=== PATIENT | male | born 1945 | race Caucasian/White ===

== ENCOUNTER → 2018-01-09 | Outpatient (CLI) | payer OTHER ==
[~2018-01-09] MED LIST: METF500T PO; MVI PO; OXYC-292 PO; OXYC-57 PO; ROSU5TAB PO; [UNRECOGNIZED DRUG - OTHER] PO
== END | disposition home or self-care (01) ==
LOC: C.LABPBG 11:01
PROVIDERS: ATTEND Urology
DX: C61 Malignant neoplasm of prostate (principal)

== ENCOUNTER 2020-09-13 12:21 | Inpatient (IN) ==
[2020-09-13] MEDS ORDERED: PIPERACILLIN/TAZOBACTAM 4.5 GM/120 ML BAG IV ONE (12:46)
[2020-09-13] MEDS ORDERED: SODIUM CHLORIDE 0.9% 1000ML 1,000 ML IV ONE (12:46)
[2020-09-13] MEDS ORDERED: PIPERACILL/TAZOBAC CONSULT ACTIVE PRN (12:46)
--- NOTE | 2020-09-13 12:59 | Emergency Department Note ---
Impression & Plan Pneumonia, COVID-19 virus infection, LAMB (dyspnea on exertion), Acute hypotension, IZABELLA (acute kidney injury) ED Provider Note NAME: JOSE OCHOA AGE: 75 SEX: M : 1945 ARRIVES VIA: Walk-In INFORMANT: Patient, ED PROVIDER(S): Wilton Beltran DO CHIEF COMPLAINT: Weakness HPI: The patient is a 75-year-old male who presented to the emergency department for an evaluation of generalized weakness. The patient describes other symptoms as well such as difficulty ambulating shortness of breath with exertion and cough. The patient states that his symptoms began a few days ago. He is noticed a productive cough and fever. He also notices significant exertional dyspnea. The patient denies having any chest pain. He denies having any lower extremity swelling but does complain of generalized weakness. He denies having any abdominal pain nausea or vomiting. He states his symptoms are moderate to severe especially with any exertion. The patient states he has been compliant with his outpatient medication regimen otherwise. The patient was not seen by provider prior to coming to the emergency department. ROS: See above HPI for pertinent positives & negatives. A total of 10 systems reviewed and were otherwise negative. PAST MEDICAL HISTORY: See Below PAST SURGICAL HISTORY: See Below FAMILY HISTORY: See Below SOCIAL HISTORY: See Below HOME MEDICATIONS: See Below ALLERGIES: See Below VITALS: See Below PHYSICAL EXAMINATION: GENERAL: The patient is awake and alert. He is somewhat listless appearing EYES: The conjunctivae are clear. The pupils are round and reactive. EARS, NOSE, MOUTH AND THROAT: The nose is without any evidence of any deformity. NECK: The neck is nontender and supple. RESPIRATORY: Diminished breath sounds are noted throughout. There were rales at the right base. There is significant exertional dyspnea and conversational dyspnea as well. CARDIOVASCULAR: Regular rate and rhythm noted there no murmurs rubs or gallops normal S1 normal S2. GASTROINTESTINAL: The abdomen is soft. Abdomen is nontender. MUSCULOSKELETAL/EXTREMITIES: There is no evidence of gross deformity full range of motion is noted in the hips and shoulders. SKIN: Skin is warm and dry. There is no significant pedal edema. NEUROLOGIC: Patient is awake alert and oriented x3. MEDICAL DECISION MAKING: The patient is a 75-year-old male who presented to the emergency department for an evaluation of difficulty breathing. The patient had fever and cough. History and physical exam appear to be consistent with pneumonia. He was initially hypotensive. He was started on IV fluids and IV antibiotics in the emergency department. He was reevaluated multiple times. The patient did appear to have a positive Covid swab. It is possible that this represents a Covid pneumonia given the findings on chest x-ray. I discussed the patient's laboratory and radiographic studies with him. [facility] also [facility] agreed to evaluate the patient in the emergency department for further management and disposition. Triage Nursing notes reviewed. Prior medical records reviewed Vital Signs: reviewed and remarkable for hypotension and tachypnea. Differential diagnosis: Viral syndrome, otitis, pharyngitis, pneumonia, influenza, meningitis, urinary tract infection, sepsis, bacteremia, as well as other pathologies. ER treatment provided: See below Diagnostics interpreted by me: ECG: EKG was obtained in the emergency department. My interpretation is normal sinus rhythm at 74 bpm. There was a right bundle branch block pattern favored. PACs were noted. This was compared to a tracing from February 052011. There were no acute changes compared to previous. Cardiac Monitoring: An order was placed for continuous cardiac monitoring. The monitor shows a rate of 89 bpm with sinus rhythm. Laboratory studies: As stated above and show below. Imaging studies: See below Consultation(s): I discussed this case with Dr. Ramos who [facility] He will evaluate the patient in the emergency department. Past Med/Surg History Medical History (Updated 09/13/20 @ 19:04 by Wilton Beltran DO) Hypercholesterolemia Hypertension Prostate cancer Social History (Updated 09/13/20 @ 12:57 by Wilton Beltran DO) Smoking Status: Former smoker Hx Alcohol Use: No Hx Substance Use: No Preferred Language: Portuguese Communication Ability: Effective Current Living Situation: Other Current Living Situation Comment: Grandson, 1 level house with cellar steps Other Information That Helps Us Care for You: No Feels Safe at Home: Yes Safety Concerns: Feels Safe At This Time Assistive Devices: Denture - Upper, Denture - Lower, Glasses and Prosthesis Assistive Devices Comment: R eye prosthesis Allergies Allergies Allergy/AdvReac Type Severity Reaction Status Date / Time No Known Allergies Verified 09/13/20 14:35 Home Meds Home Medications Medication Instructions Recorded Confirmed aspirin 81 mg tablet,delayed 81 mg PO DAILY 01/31/19 09/13/20 release clopidogrel 75 mg tablet 75 mg PO DAILY 01/31/19 09/13/20 ezetimibe 10 mg tablet 10 mg PO DAILY 01/31/19 09/13/20 fenofibrate nanocrystallized 145 145 mg PO DAILY 01/31/19 09/13/20 mg tablet glipizide 5 mg tablet 2.5 mg PO BID 01/31/19 09/13/20 lisinopril 10 1 tab PO DAILY 01/31/19 09/13/20 mg-hydrochlorothiazide 12.5 mg tablet trazodone 100 mg tablet 100 mg PO DAILY 01/31/19 09/13/20 vit C,E,zinc,copper-[id number] 250 1 cap PO DAILY 01/31/19 09/13/20 mg-lutein 5 mg-zeaxanthin 1 mg capsule Results & Data (ED) Vital Signs Vital Signs - 24 hr 09/13/20 12:33 09/13/20 12:46 09/13/20 13:00 Temperature 36.8 C Temperature Source Temporal Artery Scan Pulse Rate 76 70 72 Pulse Rate from SpO2 Sensor 70 72 Pulse Rhythm Regular Respiratory Rate 22 22 21 Respiratory Effort / Characteristics Non-Labored Spontaneous Respiratory Depth Normal Respiratory Pattern Regular Blood Pressure 72/48 L 82/41 L Blood Pressure Mean 56 54 Pulse Oximetry 92 93 94 Oxygen Delivery Method Room Air Room Air Sepsis Recent Fever Within 48 Hours Yes Sepsis New/Unexplained Change in Mental Status No Sepsis Action Taken by Nursing Physician Notified 09/13/20 13:15 09/13/20 13:22 09/13/20 13:30 Temperature Temperature Source Pulse Rate 67 67 75 Pulse Rate from SpO2 Sensor 67 71 Pulse Rhythm Respiratory Rate 25 H 21 23 Respiratory Effort / Characteristics Short of Breath Respiratory Depth Respiratory Pattern Blood Pressure 79/44 L 86/50 L Blood Pressure Mean 55 62 Pulse Oximetry 93 95 Oxygen Delivery Method Room Air Sepsis Recent Fever Within 48 Hours Sepsis New/Unexplained Change in Mental Status Sepsis Action Taken by Nursing 09/13/20 13:45 09/13/20 14:00 09/13/20 14:07 Temperature Temperature Source Pulse Rate 74 65 Pulse Rate from SpO2 Sensor 73 70 Pulse Rhythm Respiratory Rate 21 24 Respiratory Effort / Characteristics Short of Breath Respiratory Depth Respiratory Pattern Blood Pressure 99/58 L 110/55 L Blood Pressure Mean 71 73 Pulse Oximetry 96 100 94 Oxygen Delivery Method Sepsis Recent Fever Within 48 Hours Sepsis New/Unexplained Change in Mental Status Sepsis Action Taken by Nursing 09/13/20 14:15 09/13/20 14:34 09/13/20 14:45 Temperature Temperature Source Pulse Rate 67 85 75 Pulse Rate from SpO2 Sensor 67 86 78 Pulse Rhythm Respiratory Rate 24 32 H 21 Respiratory Effort / Characteristics Respiratory Depth Respiratory Pattern Blood Pressure 107/58 L 93/53 L 102/48 L Blood Pressure Mean 74 66 66 Pulse Oximetry 98 94 94 Oxygen Delivery Method Sepsis Recent Fever Within 48 Hours Sepsis New/Unexplained Change in Mental Status Sepsis Action Taken by Nursing 09/13/20 15:00 09/13/20 15:15 09/13/20 15:16 Temperature Temperature Source Pulse Rate 65 66 67 Pulse Rate from SpO2 Sensor 66 66 66 Pulse Rhythm Respiratory Rate 26 H 30 H 25 H Respiratory Effort / Characteristics Short of Breath Respiratory Depth Respiratory Pattern Blood Pressure 112/51 L 110/59 L Blood Pressure Mean 71 76 Pulse Oximetry 93 94 92 Oxygen Delivery Method Room Air Sepsis Recent Fever Within 48 Hours Sepsis New/Unexplained Change in Mental Status Sepsis Action Taken by Nursing 09/13/20 15:30 09/13/20 15:31 09/13/20 15:45 Temperature Temperature Source Pulse Rate 95 H 92 H 82 Pulse Rate from SpO2 Sensor 96 H 96 H 85 Pulse Rhythm Respiratory Rate 21 24 26 H Respiratory Effort / Characteristics Short of Breath Respiratory Depth Respiratory Pattern Blood Pressure 126/69 132/67 Blood Pressure Mean 88 88 Pulse Oximetry 96 96 95 Oxygen Delivery Method Room Air Sepsis Recent Fever Within 48 Hours Sepsis New/Unexplained Change in Mental Status Sepsis Action Taken by Nursing 09/13/20 15:46 09/13/20 16:00 09/13/20 16:15 Temperature Temperature Source Pulse Rate 63 60 76 Pulse Rate from SpO2 Sensor 64 65 81 Pulse Rhythm Respiratory Rate 25 H 24 23 Respiratory Effort / Characteristics Respiratory Depth Respiratory Pattern Blood Pressure 113/68 134/74 Blood Pressure Mean 83 94 Pulse Oximetry 92 93 98 Oxygen Delivery Method Sepsis Recent Fever Within 48 Hours Sepsis New/Unexplained Change in Mental Status Sepsis Action Taken by Nursing 09/13/20 16:16 09/13/20 16:30 09/13/20 16:31 Temperature Temperature Source Pulse Rate 82 80 76 Pulse Rate from SpO2 Sensor 75 85 82 Pulse Rhythm Respiratory Rate 22 23 26 H Respiratory Effort / Characteristics Respiratory Depth Respiratory Pattern Blood Pressure 123/79 Blood Pressure Mean 93 Pulse Oximetry 96 96 96 Oxygen Delivery Method Sepsis Recent Fever Within 48 Hours Sepsis New/Unexplained Change in Mental Status Sepsis Action Taken by Nursing 09/13/20 16:45 Temperature Temperature Source Pulse Rate 72 Pulse Rate from SpO2 Sensor 72 Pulse Rhythm Respiratory Rate 21 Respiratory Effort / Characteristics Respiratory Depth Respiratory Pattern Blood Pressure 123/58 L Blood Pressure Mean 79 Pulse Oximetry 96 Oxygen Delivery Method Sepsis Recent Fever Within 48 Hours Sepsis New/Unexplained Change in Mental Status Sepsis Action Taken by Assisted Medications Current Medication List: was personally reviewed by me Laboratory Data Attestation: I reviewed the patient's lab results. Result diagrams: 09/13/20 13:07 09/13/20 13:07 Lab Results 09/13/20 09/13/20 09/13/20 Range/Units 13:07 13:07 13:07 WBC 7.06 (4.8-10.8) K/uL RBC 3.72 L (4.7-6.1) M/uL Hgb 12.5 L (14.0-18.0) g/dL Hct 35.2 L (42-52) % MCV 94.6 (80-100) fL MCH 33.6 (25-34) pg MCHC 35.5 (32-36) g/dL RDW Std Deviation 48.6 H (36.4-46.3) fL RDW Coeff of Lexy 14.1 (11.5-14.5) % Plt Count 167 (130-400) K/uL MPV 10.1 (7.4-10.4) fL Immature Gran % (Auto) 0.1 % Neut % (Auto) 77.3 % Lymph % (Auto) 16.6 % Phelps % (Auto) 5.9 % Eos % (Auto) 0.1 % Baso % (Auto) 0.0 % Neut # (Auto) 5.45 (1.4-6.5) K/uL Lymph # (Auto) 1.17 L (1.2-3.4) K/uL [place] # (Auto) 0.42 (0.11-0.59) K/uL Eos # (Auto) 0.01 (0-0.5) K/uL Baso # (Auto) 0.00 (0-0.2) K/uL Immature Gran # (Auto) 0.01 (0.00-0.02) K/uL PT 10.9 (9.0-12.0) Seconds INR 1.1 (0.9-1.1) APTT 28.3 (21.0-31.0) Seconds PTT Ratio 1.1 D-Dimer (0-500) ug/L FEU VBG pH (7.36-7.41) VBG pCO2 (38-50) mmHg VBG pO2 mmHg VBG HCO3 mmol/L VBG O2 Saturation % VBG Base Excess mEq/L Barometric Pressure mm/Hg Sodium 127 L (136-145) mmol/L Potassium 5.3 H (3.5-5.1) mmol/L Chloride 94 L (98-107) mmol/L Carbon Dioxide 23 (21-32) mmol/L Anion Gap 10.0 (3-11) BUN 50 H (7-18) mg/dl Creatinine 2.20 H (0.6-1.4) mg/dl Est Cr Clr Drug Dosing 31.2 ml/min Est GFR ( Amer) 32.7 Est GFR (Non-Af Amer) 28.3 BUN/Creatinine Ratio 22.8 H (10-20) Glucose 83 (70-99) mg/dl Lactate (0.4-2.0) mmol/L Calcium 8.8 (8.5-10.1) mg/dl Magnesium 1.9 (1.8-2.4) mg/dl Total Bilirubin 0.4 (0.2-1) mg/dl AST 86 H (15-37) U/L ALT 53 (12-78) U/L Alkaline Phosphatase 31 L (45-117) U/L Lactate Dehydrogenase (87-241) U/L Troponin I 0.299 H* (0-0.045) ng/ml C-Reactive Protein (0-0.29) mg/dl NT-Pro-B Natriuret Pep (0-900) pg/ml Total Protein 7.0 (6.4-8.2) gm/dl Albumin 2.8 L (3.4-5.0) gm/dl Globulin 4.2 H (2.5-4.0) gm/dl Albumin/Globulin Ratio 0.7 L (0.9-2) Procalcitonin (0-0.5) ng/ml Urine Color Urine Appearance (Clear) Urine pH (4.5-7.5) Ur Specific [place] (1.000-1.030) Urine Protein (Negative) Urine Glucose (UA) (Negative) Urine Ketones (Negative) Urine Blood (Negative) Urine Nitrite (Negative) Urine Bilirubin (Negative) Urine Urobilinogen (Negative) Ur Leukocyte Esterase (Negative) COVID-19 Eval Order SARS-CoV-2 (PCR) (Negative) Influenza Type A (PCR) (Neg) Influenza Type B (PCR) (Neg) RSV (RT-PCR) (Neg) 09/13/20 09/13/20 09/13/20 Range/Units 13:07 13:07 13:07 WBC (4.8-10.8) K/uL RBC (4.7-6.1) M/uL Hgb (14.0-18.0) g/dL Hct (42-52) % MCV (80-100) fL MCH (25-34) pg MCHC (32-36) g/dL RDW Std Deviation (36.4-46.3) fL RDW Coeff of Lexy (11.5-14.5) % Plt Count (130-400) K/uL MPV (7.4-10.4) fL Immature Gran % (Auto) % Neut % (Auto) % Lymph % (Auto) % [place]helps % (Auto) % Eos % (Auto) % Baso % (Auto) % Neut # (Auto) (1.4-6.5) K/uL Lymph # (Auto) (1.2-3.4) K/uL [place] # (Auto) (0.11-0.59) K/uL Eos # (Auto) (0-0.5) K/uL Baso # (Auto) (0-0.2) K/uL Immature Gran # (Auto) (0.00-0.02) K/uL PT (9.0-12.0) Seconds INR (0.9-1.1) APTT (21.0-31.0) Seconds PTT Ratio D-Dimer (0-500) ug/L FEU VBG pH 7.42 H (7.36-7.41) VBG pCO2 36 L (38-50) mmHg VBG pO2 31 mmHg VBG HCO3 23 mmol/L VBG O2 Saturation < 60.0 % VBG Base Excess -1.5 mEq/L Barometric Pressure 733.2 mm/Hg Sodium (136-145) mmol/L Potassium (3.5-5.1) mmol/L Chloride (98-107) mmol/L Carbon Dioxide (21-32) mmol/L Anion Gap (3-11) BUN (7-18) mg/dl Creatinine (0.6-1.4) mg/dl Est Cr Clr Drug Dosing ml/min Est GFR ( Amer) Est GFR (Non-Af Amer) BUN/Creatinine Ratio (10-20) Glucose (70-99) mg/dl Lactate (0.4-2.0) mmol/L Calcium (8.5-10.1) mg/dl Magnesium (1.8-2.4) mg/dl Total Bilirubin (0.2-1) mg/dl AST (15-37) U/L ALT (12-78) U/L Alkaline Phosphatase (45-117) U/L Lactate Dehydrogenase (87-241) U/L Troponin I (0-0.045) ng/ml C-Reactive Protein (0-0.29) mg/dl NT-Pro-B Natriuret Pep 595 (0-900) pg/ml Total Protein (6.4-8.2) gm/dl Albumin (3.4-5.0) gm/dl Globulin (2.5-4.0) gm/dl Albumin/Globulin Ratio (0.9-2) Procalcitonin 0.09 (0-0.5) ng/ml Urine Color Urine Appearance (Clear) Urine pH (4.5-7.5) Ur Specific [place] (1.000-1.030) Urine Protein (Negative) Urine Glucose (UA) (Negative) Urine Ketones (Negative) Urine Blood (Negative) Urine Nitrite (Negative) Urine Bilirubin (Negative) Urine Urobilinogen (Negative) Ur Leukocyte Esterase (Negative) COVID-19 Eval Order SARS-CoV-2 (PCR) (Negative) Influenza Type A (PCR) (Neg) Influenza Type B (PCR) (Neg) RSV (RT-PCR) (Neg) 09/13/20 09/13/20 09/13/20 Range/Units 13:07 13:07 13:07 WBC (4.8-10.8) K/uL RBC (4.7-6.1) M/uL Hgb (14.0-18.0) g/dL Hct (42-52) % MCV (80-100) fL MCH (25-34) pg MCHC (32-36) g/dL RDW Std Deviation (36.4-46.3) fL RDW Coeff of Lexy (11.5-14.5) % Plt Count (130-400) K/uL MPV (7.4-10.4) fL Immature Gran % (Auto) % Neut % (Auto) % Lymph % (Auto) % [place]hel[place] % (Auto) % Eos % (Auto) % Baso % (Auto) % Neut # (Auto) (1.4-6.5) K/uL Lymph # (Auto) (1.2-3.4) K/uL [place] # (Auto) (0.11-0.59) K/uL Eos # (Auto) (0-0.5) K/uL Baso # (Auto) (0-0.2) K/uL Immature Gran # (Auto) (0.00-0.02) K/uL PT (9.0-12.0) Seconds INR (0.9-1.1) APTT (21.0-31.0) Seconds PTT Ratio D-Dimer 410 (0-500) ug/L FEU VBG pH (7.36-7.41) VBG pCO2 (38-50) mmHg VBG pO2 mmHg VBG HCO3 mmol/L VBG O2 Saturation % VBG Base Excess mEq/L Barometric Pressure mm/Hg Sodium (136-145) mmol/L Potassium (3.5-5.1) mmol/L Chloride (98-107) mmol/L Carbon Dioxide (21-32) mmol/L Anion Gap (3-11) BUN (7-18) mg/dl Creatinine (0.6-1.4) mg/dl Est Cr Clr Drug Dosing ml/min Est GFR ( Amer) Est GFR (Non-Af Amer) BUN/Creatinine Ratio (10-20) Glucose (70-99) mg/dl Lactate (0.4-2.0) mmol/L Calcium (8.5-10.1) mg/dl Magnesium (1.8-2.4) mg/dl Total Bilirubin (0.2-1) mg/dl AST (15-37) U/L ALT (12-78) U/L Alkaline Phosphatase (45-117) U/L Lactate Dehydrogenase 378 H (87-241) U/L Troponin I (0-0.045) ng/ml C-Reactive Protein 8.11 H (0-0.29) mg/dl NT-Pro-B Natriuret Pep (0-900) pg/ml Total Protein (6.4-8.2) gm/dl Albumin (3.4-5.0) gm/dl Globulin (2.5-4.0) gm/dl Albumin/Globulin Ratio (0.9-2) Procalcitonin (0-0.5) ng/ml Urine Color Urine Appearance (Clear) Urine pH (4.5-7.5) Ur Specific [place] (1.000-1.030) Urine Protein (Negative) Urine Glucose (UA) (Negative) Urine Ketones (Negative) Urine Blood (Negative) Urine Nitrite (Negative) Urine Bilirubin (Negative) Urine Urobilinogen (Negative) Ur Leukocyte Esterase (Negative) COVID-19 Eval Order SARS-CoV-2 (PCR) (Negative) Influenza Type A (PCR) (Neg) Influenza Type B (PCR) (Neg) RSV (RT-PCR) (Neg) 09/13/20 09/13/20 09/13/20 Range/Units 13:09 13:29 13:29 WBC (4.8-10.8) K/uL RBC (4.7-6.1) M/uL Hgb (14.0-18.0) g/dL Hct (42-52) % MCV (80-100) fL MCH (25-34) pg MCHC (32-36) g/dL RDW Std Deviation (36.4-46.3) fL RDW Coeff of Lexy (11.5-14.5) % Plt Count (130-400) K/uL MPV (7.4-10.4) fL Immature Gran % (Auto) % Neut % (Auto) % Lymph % (Auto) % [place] % (Auto) % Eos % (Auto) % Baso % (Auto) % Neut # (Auto) (1.4-6.5) K/uL Lymph # (Auto) (1.2-3.4) K/uL [place] # (Auto) (0.11-0.59) K/uL Eos # (Auto) (0-0.5) K/uL Baso # (Auto) (0-0.2) K/uL Immature Gran # (Auto) (0.00-0.02) K/uL PT (9.0-12.0) Seconds INR (0.9-1.1) APTT (21.0-31.0) Seconds PTT Ratio D-Dimer (0-500) ug/L FEU VBG pH (7.36-7.41) VBG pCO2 (38-50) mmHg VBG pO2 mmHg VBG HCO3 mmol/L VBG O2 Saturation % VBG Base Excess mEq/L Barometric Pressure mm/Hg Sodium (136-145) mmol/L Potassium (3.5-5.1) mmol/L Chloride (98-107) mmol/L Carbon Dioxide (21-32) mmol/L Anion Gap (3-11) BUN (7-18) mg/dl Creatinine (0.6-1.4) mg/dl Est Cr Clr Drug Dosing ml/min Est GFR ( Amer) Est GFR (Non-Af Amer) BUN/Creatinine Ratio (10-20) Glucose (70-99) mg/dl Lactate 1.5 (0.4-2.0) mmol/L Calcium (8.5-10.1) mg/dl Magnesium (1.8-2.4) mg/dl Total Bilirubin (0.2-1) mg/dl AST (15-37) U/L ALT (12-78) U/L Alkaline Phosphatase (45-117) U/L Lactate Dehydrogenase (87-241) U/L Troponin I (0-0.045) ng/ml C-Reactive Protein (0-0.29) mg/dl NT-Pro-B Natriuret Pep (0-900) pg/ml Total Protein (6.4-8.2) gm/dl Albumin (3.4-5.0) gm/dl Globulin (2.5-4.0) gm/dl Albumin/Globulin Ratio (0.9-2) Procalcitonin (0-0.5) ng/ml Urine Color Urine Appearance (Clear) Urine pH (4.5-7.5) Ur Specific [place] (1.000-1.030) Urine Protein (Negative) Urine Glucose (UA) (Negative) Urine Ketones (Negative) Urine Blood (Negative) Urine Nitrite (Negative) Urine Bilirubin (Negative) Urine Urobilinogen (Negative) Ur Leukocyte Esterase (Negative) COVID-19 Eval Order [facility] at [facility] SARS-CoV-2 (PCR) POSITIVE A* (Negative) Influenza Type A (PCR) Negative (Neg) Influenza Type B (PCR) Negative (Neg) RSV (RT-PCR) Negative (Neg) 09/13/20 Range/Units 14:24 WBC (4.8-10.8) K/uL RBC (4.7-6.1) M/uL Hgb (14.0-18.0) g/dL Hct (42-52) % MCV (80-100) fL MCH (25-34) pg MCHC (32-36) g/dL RDW Std Deviation (36.4-46.3) fL RDW Coeff of Lexy (11.5-14.5) % Plt Count (130-400) K/uL MPV (7.4-10.4) fL Immature Gran % (Auto) % Neut % (Auto) % Lymph % (Auto) % [place] % (Auto) % Eos % (Auto) % Baso % (Auto) % Neut # (Auto) (1.4-6.5) K/uL Lymph # (Auto) (1.2-3.4) K/uL [place] # (Auto) (0.11-0.59) K/uL Eos # (Auto) (0-0.5) K/uL Baso # (Auto) (0-0.2) K/uL Immature Gran # (Auto) (0.00-0.02) K/uL PT (9.0-12.0) Seconds INR (0.9-1.1) APTT (21.0-31.0) Seconds PTT Ratio D-Dimer (0-500) ug/L FEU VBG pH (7.36-7.41) VBG pCO2 (38-50) mmHg VBG pO2 mmHg VBG HCO3 mmol/L VBG O2 Saturation % VBG Base Excess mEq/L Barometric Pressure mm/Hg Sodium (136-145) mmol/L Potassium (3.5-5.1) mmol/L Chloride (98-107) mmol/L Carbon Dioxide (21-32) mmol/L Anion Gap (3-11) BUN (7-18) mg/dl Creatinine (0.6-1.4) mg/dl Est Cr Clr Drug Dosing ml/min Est GFR ( Amer) Est GFR (Non-Af Amer) BUN/Creatinine Ratio (10-20) Glucose (70-99) mg/dl Lactate (0.4-2.0) mmol/L Calcium (8.5-10.1) mg/dl Magnesium (1.8-2.4) mg/dl Total Bilirubin (0.2-1) mg/dl AST (15-37) U/L ALT (12-78) U/L Alkaline Phosphatase (45-117) U/L Lactate Dehydrogenase (87-241) U/L Troponin I (0-0.045) ng/ml C-Reactive Protein (0-0.29) mg/dl NT-Pro-B Natriuret Pep (0-900) pg/ml Total Protein (6.4-8.2) gm/dl Albumin (3.4-5.0) gm/dl Globulin (2.5-4.0) gm/dl Albumin/Globulin Ratio (0.9-2) Procalcitonin (0-0.5) ng/ml Urine Color Yellow Urine Appearance Clear (Clear) Urine pH 5.0 (4.5-7.5) Ur Specific [place] 1.018 (1.000-1.030) Urine Protein Negative (Negative) Urine Glucose (UA) Negative (Negative) Urine Ketones Negative (Negative) Urine Blood Negative (Negative) Urine Nitrite Negative (Negative) Urine Bilirubin Negative (Negative) Urine Urobilinogen Negative (Negative) Ur Leukocyte Esterase Negative (Negative) COVID-19 Eval Order SARS-CoV-2 (PCR) (Negative) Influenza Type A (PCR) (Neg) Influenza Type B (PCR) (Neg) RSV (RT-PCR) (Neg) Administered Medications Discontinued Medications Sodium Chloride (Nss 1000ml) 1,000 mls @ 999 mls/hr IV .[id number] ONE Stop: 09/13/20 13:46 Last Infusion: 09/13/20 14:16 Dose: 0 mls/hr Documented by: [id number] Admin: 09/13/20 13:15 Dose: 999 mls/hr Documented by: [id number] Piperacillin Sod/Tazobactam Sod (Zosyn) 4.5 gm in 120 mls @ 240 mls/hr IV NOW ONE Stop: 09/13/20 13:15 Last Infusion: 09/13/20 13:48 Dose: 0 mls/hr Documented by: [id number] Admin: 09/13/20 13:18 Dose: 240 mls/hr Documented by: [id number] Sodium Chloride (Nss 1000ml) 500 mls @ 999 mls/hr IV .Q31M ONE Stop: 09/13/20 17:00 Last Infusion: 09/13/20 17:28 Dose: 0 mls/hr Documented by: [id number] Admin: 09/13/20 16:57 Dose: 999 mls/hr Documented by: [id number] Imaging Data Radiologist's Impression: Chest X-Ray 09/13/20 12:46 SINGLE VIEW CHEST CLINICAL HISTORY: Sepsis. FINDINGS: An AP, portable, upright chest radiograph is compared to study dated 02/06/2012. The examination is degraded by portable technique and apical lordotic positioning. The heart is enlarged noting atherosclerotic calcification of the thoracic aorta. There is multifocal airspace consolidation, most confluent at th e lung bases. No large pleural effusion or pneumothorax is seen. The skeletal structures are osteopenic. The bony thorax is grossly intact. IMPRESSION: 1. Cardiomegaly without radiographic evidence of congestive failure. 2. Multifocal airspace consolidation is typical in appearance for pneumonia. Clinical correlation will be required and radiographic follow-up to resolution is recommended.. ACT 112: Negative or not required by law. Electronically signed by: Ravi Rodrigez M.D. 09/13/2020 2:01 PM Discharge Plan Visit Data Chief Complaint: Fever Stated Complaint: FEVER COUGH ED Provider: Wilton Beltran Discharge Problem: Pneumonia, COVID-19 virus infection, LAMB (dyspnea on exertion), Acute hypotension, IZABELLA (acute kidney injury) Patient Disposition: Admitted As Inpatient Discharge Instructions Interventions: ED Discharge Assessment Last Done: 09/13/20 17:57
[2020-09-13 13:27] LABS: Hematocrit (blood only) 35.2 % (42-52); Hemoglobin 12.5 g/dL (14.0-18.0); Mean Corpuscular Hemoglobin 33.6 pg (25-34); Mean Corpuscular Hgb Conc 35.5 g/dL (32-36); Mean Corpuscular Volume 94.6 fL (80-100); Mean Platelet Volume 10.1 fL (7.4-10.4); Platelet Count 167 K/uL (130-400); RDW Coefficient of Variation 14.1 % (11.5-14.5); RDW Standard Deviation 48.6 fL (36.4-46.3); Red Blood Count 3.72 M/uL (4.7-6.1); White Blood Count 7.06 K/uL (4.8-10.8)
[2020-09-13 13:36] LABS: Base Excess VBG -1.5 mEq/L; HCO3 VBG 23 mmol/L; Oxygen Saturation VBG < 60.0 %; PCO2 VBG 36 mmHg (38-50); PO2 VBG 31 mmHg; pH VBG 7.42 (7.36-7.41)
[2020-09-13 13:41] LABS: INR 1.1 (0.9-1.1); Partial Thromboplastin Ratio 1.1; Partial Thromboplastin Time 28.3 Seconds (21.0-31.0); Prothrombin Time 10.9 Seconds (9.0-12.0)
[2020-09-13 13:46] LABS: Eosinophils # (auto) 0.01 K/uL (0-0.5); Eosinophils % (auto) 0.1 %; Immature Granulocytes # (auto) 0.01 K/uL (0.00-0.02); Immature Granulocytes % (auto) 0.1 %; Lymphocytes # (auto) 1.17 K/uL (1.2-3.4); Lymphocytes % (auto) 16.6 %; Monocytes # (auto) 0.42 K/uL (0.11-0.59); Monocytes % (auto) 5.9 %; Neutrophils # (auto) 5.45 K/uL (1.4-6.5); Neutrophils % (auto) 77.3 %
--- NOTE | 2020-09-13 13:54 | Electrocardiogram Report ---
Test Reason : Blood Pressure : / mmHG Vent. Rate : 074 BPM Atrial Rate : 074 BPM P-R Int : 146 ms QRS Dur : 110 ms QT Int : 412 ms P-R-T Axes : 030 047 021 degrees QTc Int : 457 ms Sinus rhythm with Premature atrial complexes Incomplete right bundle branch block Borderline ECG When compared with ECG of 06-FEB-2012 16:17, Premature atrial complexes are now Present Incomplete right bundle branch block has replaced Right bundle branch block Confirmed by Parvez Anderson ([id number]) on 09/13/2020 1:54:31 PM Referred By: [id number] ED Confirmed By:Parvez Anderson
--- NOTE | 2020-09-13 14:03 | XRay Report ---
SINGLE VIEW CHEST CLINICAL HISTORY: Sepsis. FINDINGS: An AP, portable, upright chest radiograph is compared to study dated 02/06/2012. The examina tion is degraded by portable technique and apical lordotic positioning. The heart is enlarged noting atherosclerotic calcification of the thoracic aorta. There is multifocal airspace consolidation, most confluent at the lung bases. No large pleural effusion or pneumothorax is seen. The skeletal structu res are osteopenic. The bony thorax is grossly intact. IMPRESSION: 1. Cardiomegaly without radiographic evidence of congestive failure. 2. Multifocal airspace consolidation is typical in appearance for pneumonia. Clinical correlation jesenia l be required and radiographic follow-up to resolution is recommended.. ACT 112: Negative or not required by law. Electronically signed by: Ravi Rodrigez M.D. 09/13/2020 2:01 PM
[2020-09-13 14:12] LABS: Albumin Level 2.8 gm/dl (3.4-5.0); BUN Creatinine Ratio 22.8 (10-20); Calcium 8.8 mg/dl (8.5-10.1); Creatinine Clr Calc Pharmacy 31.2 ml/min; Est GFR (African American) 32.7; Est GFR (Non-African American) 28.3; Magnesium 1.9 mg/dl (1.8-2.4); Potassium 5.3 mmol/L (3.5-5.1)
[2020-09-13 14:26] LABS: Albumin Globulin Ratio 0.7 (0.9-2); Bilirubin,Total 0.4 mg/dl (0.2-1); Globulin 4.2 gm/dl (2.5-4.0); Troponin I 0.299 ng/ml (0-0.045)
[2020-09-13 14:49] LABS: Appearance Urine Clear (Clear); Bilirubin Urine Negative (Negative); Blood Urine Negative (Negative); Color Urine Yellow; Glucose Urine UA Negative (Negative); Ketones Urine Negative (Negative); Leukocyte Esterase Urine Negative (Negative); Nitrite Urine Negative (Negative); Protein Urine Negative (Negative); Specific Gravity Urine 1.018 (1.000-1.030); Urobilinogen Urine Negative (Negative)
[2020-09-13 14:50] LABS: Influenza A virus by PCR Negative (Neg); Influenza B virus by PCR Negative (Neg); RSV by PCR Negative (Neg)
[2020-09-13 14:54] LABS: SARS CoV2 RNA(COVID-19) InHosp POSITIVE (Negative)
[2020-09-13] MEDS ORDERED: SODIUM CHLORIDE 0.9% 1000ML 500 ML IV ONE (16:30)
--- NOTE | 2020-09-13 16:31 | History & Physical Report ---
Date of Service September 13, 2020 Assessment & Plan (1) COVID-19: COVID isolation precautions Encourage self proning No current medication recommended due to no respiratory distress or significant hypoxia (2) Acute kidney failure: Unknown baseline. Will request notes from his primary care provider regarding prior labs, medical conditions, medications and past medical history. Suspect prerenal due to hypotension on admission in setting of antihypertensive use. Hold lisinopril and hydrochlorothiazide NSS 1.5L bolus given in ER. (3) Diarrhea: Suspect secondary to COVID-19 as above. Recommend C. difficile toxin testing if watery diarrhea over the next 24 hours. If no watery diarrhea over the next 24 hours recommend starting Imodium. Aim for net neutral fluid balance, every shift input and output. (4) Acute hypotension: Secondary to antihypertensives in the setting of diarrhea and dehydration Management as above for IZABELLA (5) Hypertension: Hold lisinopril and hydrochlorothiazide in setting of acute hypotension as above (6) Hypercholesterolemia: Continue ezetimibe and fenofibrate. Unclear why the patient is not on a statin. (7) Peripheral artery disease: Exact details of this unclear. Patient mentions possible stent. Peripheral pulses appear intact. Continue aspirin 81 mg p.o. daily, clopidogrel 75 mg p.o. daily, ezetimibe 10 mg p.o. daily, fenofibrate 145 mg p.o. daily (8) DVT prophylaxis: Heparin 7500 units subcu q8h Admission and Anticipated Discharge Date Admission Date: September 13, 2020 History of Present Illness Chief Complaint: Diarrhea, generalized weakness, shortness of breath. Primary Care Provider: Gopi Verma is a 75-year-old male who presents to the ER with generalized weakness, fever, weakness, cough, diarrhea and shortness of breath. Symptoms started 1 week ago. Symptoms included fever, chills, shortness of breath, cough, poor appetite, generalized weakness, myalgias, headache, fatigue and diarrhea. He denies any loss of taste or smell, chest or abdominal pain. He was prompted to come to the ER today by his daughter who is not present at bedside. In the ER, CXR was concerning for multifocal airspace consolidation. SARS-COV-2 PCR positive. Procalcitonin negative. He was initially hypotensive with BP 72/48 which has improved since 1L NSS bolus given. Cr 2.2 (unknown baseline). He was treated empirically with Zosyn 4.5g prior to all lab work coming back. He was referred to medicine for admission and ongoing management of COVID-19 pneumonia and sepsis. I tried to update his family on admission however only number provided was the home number for his with no answer. No other phone numbers on the chart and the patient is unable to tell me any other phone numbers of family members. Allergies Allergy/AdvReac Type Severity Reaction Status Date / Time No Known Allergies Verified 09/13/20 14:35 Home Medications Medication Instructions Recorded Confirmed Type aspirin 81 mg tablet,delayed 81 mg PO DAILY 01/31/19 09/13/20 History release clopidogrel 75 mg tablet 75 mg PO DAILY 01/31/19 09/13/20 History ezetimibe 10 mg tablet 10 mg PO DAILY 01/31/19 09/13/20 History fenofibrate nanocrystallized 145 145 mg PO DAILY 01/31/19 09/13/20 History mg tablet glipizide 5 mg tablet 2.5 mg PO BID 01/31/19 09/13/20 History lisinopril 10 1 tab PO DAILY 01/31/19 09/13/20 History mg-hydrochlorothiazide 12.5 mg tablet trazodone 100 mg tablet 100 mg PO DAILY 01/31/19 09/13/20 History vit C,E,zinc,copper-abtcd2a 250 1 cap PO DAILY 01/31/19 09/13/20 History mg-lutein 5 mg-zeaxanthin 1 mg capsule Past Med/Surg History Medical History Hypercholesterolemia Hypertension Prostate cancer Social History Smoking Status: Former smoker Hx Alcohol Use: No Hx Substance Use: No Preferred Language: Danish Communication Ability: Effective Current Living Situation: Other Current Living Situation Comment: Grandson, 1 level house with cellar steps Other Information That Helps Us Care for You: No Feels Safe at Home: Yes Safety Concerns: Feels Safe At This Time Assistive Devices: Denture - Upper, Denture - Lower, Glasses and Prosthesis Assistive Devices Comment: R eye prosthesis Review of Systems Review of Systems: All systems reviewed & are unremarkable except as noted in HPI & below Physical Exam Constitutional: WD/WN, vitals as above Eyes: PERRL, conjunctivae normal, anicteric sclerae ENMT: Ears: no external ear abnormality Nose: no external nose abnormality Mouth: + dry oral mucous membranes Neck: trachea midline, no thyromegaly Respiratory: normal respiratory effort and able to speak in complete sentences; no respiratory distress, no labored breathing, no retractions, does not use accessory muscles, no cough, normal respiratory pattern, expiratory phase not prolonged and no stridor Auscultation: + crackles (coarse bibasal) and + wheezes (Mild end expiratory anteriorly); no diminished lung sounds Cardiovascular: Rate/Rhythm: regular rate and regular rhythm Heart Sounds: no murmur Extremities: normal capillary refill and + pedal edema (Trace pretibial bilateral equal); no calf tenderness Gastrointestinal (Abdomen): normal bowel sounds, soft, nontender, no hepatosplenomegaly Musculoskeletal: no cyanosis or clubbing, extremities motor strength 5/5 Skin: no rashes, warm and dry Neurologic: moves all extremities and awake; no focal motor deficits and not confused Psychiatric: A+Ox3, euthymic affect Genitourinary: no CVA tenderness Results & Data Results & Data ([facility]) Vital Signs (Past 12 Hours) Vital Signs Temp Pulse Resp BP Pulse Ox 09/13/20 15:00 65 26 H 112/51 L 93 09/13/20 14:45 75 21 102/48 L 94 09/13/20 14:34 85 32 H 93/53 L 94 09/13/20 14:15 67 24 107/58 L 98 09/13/20 14:07 94 09/13/20 14:00 65 24 110/55 L 100 09/13/20 13:45 74 21 99/58 L 96 09/13/20 13:30 75 23 86/50 L 95 09/13/20 13:22 67 21 79/44 L 93 09/13/20 13:15 67 25 H 09/13/20 13:00 72 21 94 09/13/20 12:46 70 22 82/41 L 93 09/13/20 12:33 36.8 C 76 22 72/48 L 92 Diagnostic Findings SINGLE VIEW CHEST IMPRESSION: 1. Cardiomegaly without radiographic evidence of congestive failure. 2. Multifocal airspace consolidation is typical in appearance for pneumonia. Clinical correlation will be required and radiographic follow-up to resolution is recommended.. Medications Administered ER medications given: NSS 1 hour bolus Zosyn 4.5 g IV ECG Indication: SOB/dyspnea Rate (beats per minute): 74 Rhythm: normal sinus Findings: + RBBB (Incomplete); no acute ischemic change Comparison ECG Date: from (February 06, 2012) Change: the following changes noted (Right bundle branch block now incomplete) Code Status & VTE Plan Code Status Full VTE Prophylaxis Plan VTE Prophylaxis will be ordered: Yes PG Care Time/CCT Total # of Minutes Spent Total Time Spent with Patient: Total time spent is greater than 50% in coordination of care (as documented) at patient's floor/unit and/or counseling patient: Coding Level of Care Code 54330 Initial Inpt Care Lvl 3 Diagnoses COVID-19 U07.1 Acute kidney failure N17.9 Acute renal failure type: unspecified Diarrhea A09 Diarrhea type: infectious Acute hypotension I95.9 Hypertension I10 Hypercholesterolemia E78.00 Peripheral artery disease I73.9 DVT prophylaxis Z29.9 (1) Acute kidney failure Acute renal failure type: unspecified Qualified Code(s): N17.9 - Acute kidney failure, unspecified (2) Diarrhea Diarrhea type: infectious Qualified Code(s): A09 - Infectious gastroenteritis and colitis, unspecified
[2020-09-13 17:02] LABS: D Dimer 410 ug/L FEU (0-500)
[2020-09-13] MEDS ORDERED: SODIUM CHLORIDE 0.9% 1000ML 1,000 ML IV SCH (18:13)
[2020-09-13] MEDS ORDERED: ONDANSETRON INJ 2 MG/ML 2 ML VIAL IV PRN (18:13)
[2020-09-13] MEDS ORDERED: ALUMINUM/MAGNESIUM SUSP 30 ML UDC PO PRN (18:13)
[2020-09-13] MEDS ORDERED: GLUCOSE 10 TABS/TUBE PO PRN (20:37)
[2020-09-13] MEDS ORDERED: CARBOHYDRATES FOR HYPOGLYCEMIA PO PRN (20:37)
[2020-09-13] MEDS ORDERED: GLUCOSE 40% GEL 15 GM TUBE PO PRN (20:37)
[2020-09-13] MEDS ORDERED: GLUCAGON FOR INJ 1 MG VIAL SQ PRN (20:37)
[2020-09-13] MEDS ORDERED: DEXTROSE 50% 50 ML SYRINGE IV PRN (20:37)
[2020-09-13] MEDS: INSULIN ASPART 100 UNITS/ML 3 ML PEN SC SCH (21:05)
[2020-09-13] MEDS: traZODone HCL 100 MG TAB PO SCH (22:04)
[2020-09-13] MEDS: HEPARIN SOD 5,000 UNIT/0.5 ML VIAL SQ SCH (22:05)
[2020-09-14 03:09] LABS: BUN Creatinine Ratio 22.8 (10-20); Est GFR (African American) 37.2; Est GFR (Non-African American) 32.1; Potassium 5.5 mmol/L (3.5-5.1)
[2020-09-14] MEDS: HEPARIN SOD 5,000 UNIT/0.5 ML VIAL SQ SCH ×2 (06:15→21:45)
[2020-09-14] MEDS ORDERED: ALBUT/IPRATROP 3MG/0.5MG NEB 3 ML VIAL NEB SCH (07:00)
[2020-09-14 07:14] LABS: Hematocrit (blood only) 36.3 % (42-52); Hemoglobin 12.5 g/dL (14.0-18.0); Mean Corpuscular Hemoglobin 33.1 pg (25-34); Mean Corpuscular Hgb Conc 34.4 g/dL (32-36); Mean Platelet Volume 9.9 fL (7.4-10.4); Platelet Count 158 K/uL (130-400); RDW Coefficient of Variation 14.2 % (11.5-14.5); RDW Standard Deviation 50.2 fL (36.4-46.3); Red Blood Count 3.78 M/uL (4.7-6.1); White Blood Count 6.75 K/uL (4.8-10.8)
[2020-09-14 07:37] LABS: Immature Granulocytes # (auto) 0.01 K/uL (0.00-0.02); Immature Granulocytes % (auto) 0.1 %; Lymphocytes # (auto) 1.34 K/uL (1.2-3.4); Lymphocytes % (auto) 19.9 %; Monocytes # (auto) 0.32 K/uL (0.11-0.59); Monocytes % (auto) 4.7 %; Neutrophils # (auto) 5.08 K/uL (1.4-6.5); Neutrophils % (auto) 75.3 %
[2020-09-14 07:44] LABS: Albumin Level 2.6 gm/dl (3.4-5.0); BUN Creatinine Ratio 23.3 (10-20); Calcium 8.2 mg/dl (8.5-10.1); Creatinine Clr Calc Pharmacy 35.7 ml/min; Est GFR (African American) 38.6; Est GFR (Non-African American) 33.3; Potassium 5.4 mmol/L (3.5-5.1)
[2020-09-14 07:47] LABS: Albumin Globulin Ratio 0.6 (0.9-2); Bilirubin,Total 0.5 mg/dl (0.2-1); Globulin 4.3 gm/dl (2.5-4.0); Total Protein 6.9 gm/dl (6.4-8.2)
--- NOTE | 2020-09-14 08:36 | Hospitalist Progress Note ---
Date of Service September 14, 2020 Assessment & Plan (1) COVID-19: COVID isolation precautions. - Started dexamethasone 6 mg PO daily on 09/14 for 10 days (End date: 09/23) - Encourage self proning - Supplemental O2 as needed (presently on 2 L NC) - Has some discomfort today. Will encourage self-proning as able. (2) Acute kidney failure: Unknown baseline. Requested notes from his primary care provider regarding prior labs, medical conditions, medications, and past medical history. Suspect prerenal due to hypotension on admission in setting of antihypertensive use. - Hold lisinopril and hydrochlorothiazide - Stable K+ today at 5.4. Cr stable as well. (3) Diarrhea: Suspect secondary to COVID-19 as above. C. diff negative on 09/14. - Imodium PRN (4) Acute hypotension: Secondary to anti-hypertensives in the setting of diarrhea and dehydration. - Management as above for IZABELLA (5) Hypertension: - As above (6) Hypercholesterolemia: Continue ezetimibe and fenofibrate. Unclear why the patient is not on a statin. (7) Peripheral artery disease: Exact details of this unclear. Patient mentions possible stent. - Continue aspirin 81 mg p.o. daily, clopidogrel 75 mg p.o. daily, ezetimibe 10 mg p.o. daily, & fenofibrate 145 mg p.o. daily (8) DVT prophylaxis: Heparin 7500 units SQ Q12h Admission and Anticipated Discharge Date Admission Date: September 13, 2020 Subjective Some increased shortness of breath. It is especially pronounced when he moves to the bathroom and back. Have some loose stools. Reports no fevers/chills, chest pain, abdominal pain, nausea, or vomiting. Physical Exam Constitutional: WD/WN, vitals as above + acute distress Eyes: EOM intact bilaterally; no conjunctival abnormality ENMT: external ear and nose normal, oropharynx normal Neck: trachea midline, no thyromegaly normal visual inspection Respiratory: + respiratory distress and + labored breathing Auscultation: no crackles and no wheezes Cardiovascular: RRR, no murmur, no edema Gastrointestinal (Abdomen): Inspection/Auscultation: abdomen normal to inspection; abdomen not distended Musculoskeletal: no cyanosis or clubbing, extremities motor strength 5/5 Skin: no rashes, warm and dry Neurologic: moves all extremities and awake Psychiatric: Orientation: alert, oriented to person and cooperative Results & Data Results & Data ([facility]) Vital Signs (Past 12 Hours) Vital Signs Temp Pulse Pulse Resp BP Pulse Ox 09/14/20 08:00 72 09/14/20 07:44 37.9 C H 79 20 108/54 L 91 09/14/20 07:43 69 18 91 09/14/20 07:35 36.9 C 86 24 108/64 90 09/14/20 04:27 37.8 C H 84 24 110/52 L 94 09/13/20 23:31 36.9 C 88 22 118/60 93 PG Care Time/CCT Total # of Minutes Spent Total Time Spent with Patient: Total time spent is greater than 50% in coordin ation of care (as documented) at patient's floor/unit and/or counseling patient: Coding Level of Care Code 60742 Subseq Hosp Care Lvl 2 Diagnoses COVID-19 U07.1 Acute kidney failure N17.9 Acute renal failure type: unspecified Diarrhea A09 Diarrhea type: infectious Acute hypotension I95.9 Hypertension I10 Hypercholesterolemia E78.00 Peripheral artery disease I73.9 DVT prophylaxis Z29.9 (1) Acute kidney failure Acute renal failure type: unspecified Qualified Code(s): N17.9 - Acute kidney failure, unspecified (2) Diarrhea Diarrhea type: infectious Qualified Code(s): A09 - Infectious gastroenteritis and colitis, unspecified
[2020-09-14] MEDS: EZETIMIBE 10 MG TABLET PO SCH (08:41)
[2020-09-14] MEDS: FENOFIBRATE NANOCRYSTALLIZED 145 MG TABLET PO SCH (08:41)
[2020-09-14] MEDS: ASPIRIN 81 MG ECTAB PO SCH (08:41)
[2020-09-14] MEDS: CLOPIDOGREL BISULFATE 75 MG TAB PO SCH (08:41)
[2020-09-14 09:16] LABS: Estimated Average Glucose 140 mg/dl; Hemoglobin A1C 6.5 % (4.5-5.6)
[2020-09-14] MEDS: INSULIN ASPART 100 UNITS/ML 3 ML PEN SC SCH ×4 (09:20→21:45)
[2020-09-14] MEDS: dexAMETHasone 4 MG TAB PO SCH (11:02)
[2020-09-14] MEDS: ACETAMINOPHEN 325 MG TAB PO PRN (11:04)
[2020-09-14] MEDS ORDERED: NORMOSOL-R 500 ML IV ONE (17:34)
[2020-09-14] MEDS: traZODone HCL 100 MG TAB PO SCH (21:45)
[2020-09-15 06:15] LABS: Hemoglobin 11.9 g/dL (14.0-18.0); Mean Corpuscular Hemoglobin 32.9 pg (25-34); Mean Corpuscular Volume 96.7 fL (80-100); Mean Platelet Volume 9.8 fL (7.4-10.4); Platelet Count 169 K/uL (130-400); RDW Coefficient of Variation 14.4 % (11.5-14.5); RDW Standard Deviation 51.2 fL (36.4-46.3); Red Blood Count 3.62 M/uL (4.7-6.1); White Blood Count 6.62 K/uL (4.8-10.8)
[2020-09-15 06:47] LABS: BUN Creatinine Ratio 25.9 (10-20); Calcium 8.6 mg/dl (8.5-10.1); Creatinine Clr Calc Pharmacy 43.1 ml/min; Est GFR (African American) 48.5; Est GFR (Non-African American) 41.8; Magnesium 2.5 mg/dl (1.8-2.4); Potassium 5.4 mmol/L (3.5-5.1)
[2020-09-15] MEDS: dexAMETHasone 4 MG TAB PO SCH (09:08)
[2020-09-15] MEDS: CLOPIDOGREL BISULFATE 75 MG TAB PO SCH (09:09)
[2020-09-15] MEDS: FENOFIBRATE NANOCRYSTALLIZED 145 MG TABLET PO SCH (09:09)
[2020-09-15] MEDS: EZETIMIBE 10 MG TABLET PO SCH (09:09)
[2020-09-15] MEDS: ASPIRIN 81 MG ECTAB PO SCH (09:10)
[2020-09-15] MEDS: HEPARIN SOD 5,000 UNIT/0.5 ML VIAL SQ SCH ×2 (09:10→20:54)
[2020-09-15] MEDS: INSULIN ASPART 100 UNITS/ML 3 ML PEN SC SCH ×4 (09:38→21:19)
--- NOTE | 2020-09-15 13:32 | Hospitalist Progress Note ---
Date of Service September 15, 2020 Assessment & Plan (1) COVID-19: COVID isolation precautions. Sepsis treated and resolved, due to COVID 19 pneumonia. - Started dexamethasone 6 mg PO daily on 09/14 for 10 days (End date: 09/23) - Encourage self proning - Supplemental O2 as needed (presently on 2 L NC) - Slowly improving. Was off all O2 (ie on room air) at rest for me with O2 sat. ~90%. Looks like he is back on low level. Feels he is improving. - Will get PT/OT today with hope that he might be able to go tomorrow. (2) Acute kidney failure: Unknown baseline. Requested notes from his primary care provider regarding prior labs, medical conditions, medications, and past medical history. Suspect prerenal due to hypotension on admission in setting of antihypertensive use. - Hold lisinopril and hydrochlorothiazide - Stable K+ today at 5.4. Cr improving though to 1.6. Given stability, I do wonder if he has CKD. Will give another small bolus as he looks dry still. (3) Diabetes: A1c was 6.5% this admission. - Sugars higher with steroids. BS are 130 - 260 over last 24 hours. - Will tighten sliding scale today (09/15) (4) Diarrhea: Suspect secondary to COVID-19 as above. C. diff negative on 09/14. - Imodium PRN (5) Acute hypotension: Secondary to anti-hypertensives in the setting of diarrhea and dehydration. - Management as above for IZABELLA (6) Hypertension: - As above (7) Hypercholesterolemia: - Continue ezetimibe and fenofibrate. Unclear why the patient is not on a statin. (8) Peripheral artery disease: Exact details of this unclear. Patient mentions possible stent. - Continue aspirin 81 mg p.o. daily, clopidogrel 75 mg p.o. daily, ezetimibe 10 mg p.o. daily, & fenofibrate 145 mg p.o. daily (9) DVT prophylaxis: Heparin 7500 units SQ Q12h Admission and Anticipated Discharge Date Admission Date: September 13, 2020 Physical Exam Constitutional: WD/WN, vitals as above + acute distress Eyes: EOM intact bilaterally; no conjunctival abnormality ENMT: external ear and nose normal, oropharynx normal Neck: trachea midline, no thyromegaly normal visual inspection Respiratory: normal respiratory effort, lungs clear to auscultation + respiratory distress and + labored breathing Auscultation: no crackles and no wheezes Cardiovascular: RRR, no murmur, no edema Gastrointestinal (Abdomen): Inspection/Auscultation: abdomen normal to inspection; abdomen not distended Musculoskeletal: no cyanosis or clubbing, extremities motor strength 5/5 Skin: no rashes, warm and dry Neurologic: moves all extremities and awake Psychiatric: Orientation: alert, oriented to person and cooperative Results & Data Results & Data ([facility]) Vital Signs (Past 12 Hours) Vital Signs Temp Pulse Pulse Resp BP Pulse Ox 09/15/20 11:30 36.6 C 78 18 114/54 L 89 L 09/15/20 08:00 53 L 09/15/20 07:53 36.4 C L 70 18 112/62 94 PG Care Time/CCT Total # of Minutes Spent Total Time Spent with Patient: Total time spent is greater than 50% in c oordination of care (as documented) at patient's floor/unit and/or counseling patient: Coding Level of Care Code 94422 Subseq Hosp Care Lvl 3 Diagnoses COVID-19 U07.1 Acute kidney failure N17.9 Acute renal failure type: unspecified Diabetes E11.9 Diarrhea A09 Diarrhea type: infectious Acute hypotension I95.9 Hypertension I10 Hypercholesterolemia E78.00 Peripheral artery disease I73.9 DVT prophylaxis Z29.9 (1) Acute kidney failure Acute renal failure type: unspecified Qualified Code(s): N17.9 - Acute kidney failure, unspecified (2) Diarrhea Diarrhea type: infectious Qualified Code(s): A09 - Infectious gastroenteritis and colitis, unspecified
[2020-09-15] MEDS ORDERED: NORMOSOL-R 500 ML IV ONE (13:45)
[2020-09-15] MEDS: traZODone HCL 100 MG TAB PO SCH (20:54)
[2020-09-15] MEDS: LOPERAMIDE HCL 2 MG CAP PO PRN (21:03)
[2020-09-16] MEDS ORDERED: ALBUT/IPRATROP 3MG/0.5MG NEB 3 ML VIAL NEB STA (04:46)
[2020-09-16] MEDS: ASPIRIN 81 MG ECTAB PO SCH (07:23)
[2020-09-16] MEDS: dexAMETHasone 4 MG TAB PO SCH (07:23)
[2020-09-16] MEDS: CLOPIDOGREL BISULFATE 75 MG TAB PO SCH (07:24)
[2020-09-16] MEDS: EZETIMIBE 10 MG TABLET PO SCH (07:24)
[2020-09-16] MEDS: FENOFIBRATE NANOCRYSTALLIZED 145 MG TABLET PO SCH (07:24)
[2020-09-16] MEDS: HEPARIN SOD 5,000 UNIT/0.5 ML VIAL SQ SCH (07:25)
[2020-09-16 07:33] LABS: Hematocrit (blood only) 38.2 % (42-52); Hemoglobin 12.9 g/dL (14.0-18.0); Mean Corpuscular Hemoglobin 32.8 pg (25-34); Mean Corpuscular Hgb Conc 33.8 g/dL (32-36); Mean Corpuscular Volume 97.2 fL (80-100); Mean Platelet Volume 9.8 fL (7.4-10.4); Platelet Count 221 K/uL (130-400); RDW Coefficient of Variation 14.4 % (11.5-14.5); RDW Standard Deviation 51.6 fL (36.4-46.3); Red Blood Count 3.93 M/uL (4.7-6.1); White Blood Count 8.58 K/uL (4.8-10.8)
[2020-09-16] MEDS: LOPERAMIDE HCL 2 MG CAP PO PRN (07:40)
[2020-09-16 07:55] LABS: BUN Creatinine Ratio 29.7 (10-20); Calcium 9.3 mg/dl (8.5-10.1); Creatinine Clr Calc Pharmacy 46.5 ml/min; Est GFR (African American) 53.3; Magnesium 2.2 mg/dl (1.8-2.4)
[2020-09-16] MEDS: INSULIN ASPART 100 UNITS/ML 3 ML PEN SC SCH ×4 (08:20→21:47)
--- NOTE | 2020-09-16 16:53 | XRay Report ---
SINGLE VIEW CHEST CLINICAL HISTORY: Hypoxia. Covid pneumonia. FINDINGS: 2 AP, portable, semierect chest radiographs are compared to study dated 09/13/2020. The exami nation is degraded by portable technique, patient rotation, and apical lordotic positioning. The hear t is enlarged noting atherosclerotic calcification of the thoracic aorta. There is multifocal airspac e consolidation, most confluent at the lung bases. No large pleural effusion or pneumothorax is seen. The skeletal structures are osteopenic. The bony thorax is grossly intact. IMPRESSION: Multifocal airspace consolidation is consistent with the reported history of a viral pneu monia and has modestly increased as compared to 09/13/2020. ACT 112: Negative or not required by law. Electronically signed by: Ravi Rodrigez M.D. 09/16/2020 4:52 PM
[2020-09-16] MEDS: traZODone HCL 100 MG TAB PO SCH (21:00)
--- NOTE | 2020-09-16 21:15 | Hospitalist Progress Note ---
Date of Service September 16, 2020 Assessment & Plan (1) COVID-19: COVID isolation precautions. Sepsis treated and resolved, due to COVID 19 pneumonia. - Started dexamethasone 6 mg PO daily on 09/14 for 10 days (End date: 09/23) - Encourage self proning - Patient decompensated overnight. -Now on high flow oxygen: 40 liters. -Will discuss with electronic sales and service technician. -Obtained repeat chest x ray which shows wosering pneumonia. -procal was order and is negative. -Will place on IV antibiotics: cefepime for possible pneumonia. (2) Acute kidney failure: Unknown baseline. Requested notes from his primary care provider regarding prior labs, medical conditions, medications, and past medical history. Suspect prerenal due to hypotension on admission in setting of antihypertensive use. - Hold lisinopril and hydrochlorothiazide - Creat continues to improve.will continue to monitor. (3) Diabetes: A1c was 6.5% this admission. - Sugars higher with steroids. BS are 130 - 260 over last 24 hours. - Will tighten sliding scale today (09/15) (4) Diarrhea: Suspect secondary to COVID-19 as above. C. diff negative on 09/14. - Imodium PRN -Patient did have some bleeding today, will closely monitor, will hold heparin sub q for now. (5) Acute hypotension: Secondary to anti-hypertensives in the setting of diarrhea and dehydration. - Management as above for IZABELLA (6) Hypertension: - As above (7) Hypercholesterolemia: - Continue ezetimibe and fenofibrate. Unclear why the patient is not on a statin. (8) Peripheral artery disease: Exact details of this unclear. Patient mentions possible stent. - Continue aspirin 81 mg p.o. daily, clopidogrel 75 mg p.o. daily, ezetimibe 10 mg p.o. daily, & fenofibrate 145 mg p.o. daily (9) DVT prophylaxis: holding Heparin 7500 units SQ Q12h continue SCD Knee Admission and Anticipated Discharge Date Admission Date: September 13, 2020 Subjective Patient reports no new symptoms at this time. Feels overall worse today. Review of Systems Review of Systems: All systems reviewed & are unremarkable except as noted in HPI & below Physical Exam Physical Exam: Constitutional: WD/WN, vitals as above Eyes: EOM intact bilaterally; no conjunctival abnormality ENMT: external ear and nose normal, oropharynx normal Neck: trachea midline, no thyromegaly normal visual inspection Respiratory: + labored breathing Auscultation: no crackles and no wheezes Cardiovascular: RRR, no murmur, no edema Gastrointestinal (Abdomen): Inspection/Auscultation: abdomen normal to inspection; abdomen not distended Musculoskeletal: no cyanosis or clubbing, extremities motor strength 5/5 Skin: no rashes, warm and dry Neurologic: moves all extremities and awake Psychiatric: Orientation: alert, oriented to person and cooperative Results & Data Results & Data ([facility]) Vital Signs (Past 12 Hours) Vital Signs Temp Pulse Pulse Resp BP Pulse Ox Pulse Ox 09/16/20 19:48 37.7 C H 97 H 20 123/47 L 93 09/16/20 19:40 100 H 26 H 93 09/16/20 18:01 93 09/16/20 16:00 120 H 33 H 88 L 09/16/20 15:32 81 20 128/41 L 97 09/16/20 15:25 68 09/16/20 11:43 79 20 92 09/16/20 11:30 36.7 C 79 20 97/61 L 90 09/16/20 10:20 96 PG Care Time/CCT Total # of Minutes Spent Total Time Spent with Patient: Total time spent is greater than 50% in coordination of care (as documented) at patient's floor/unit and/or counseling patient: Coding Level of Care Code 98268 Subseq Hosp Care Lvl 3 Diagnoses COVID-19 U07.1 Acute kidney failure N17.9 Acute renal failure type: unspecified Diabetes E11.9 Diarrhea A09 Diarrhea type: infectious Acute hypotension I95.9 Hypertension I10 Hypercholesterolemia E78.00 Peripheral artery disease I73.9 DVT prophylaxis Z29.9 (1) Acute kidney failure Acute renal failure type: unspecified Qualified Code(s): N17.9 - Acute kidney failure, unspecified (2) Diarrhea Diarrhea type: infectious Qualified Code(s): A09 - Infectious gastroenteritis and colitis, unspecified
[2020-09-16 21:38] LABS: Base Excess ABG 0.6 mEq/L (-9-1.8); HCO3 ABG 22 mmol/L (19-24); Oxygen Saturation ABG 90.2 % (90-95); PCO2 ABG 26 mmHg (35-46); PO2 ABG 55 mmHg (80-95)
[2020-09-16 21:44] LABS: Allen Test Pos (Pos)
[2020-09-16 21:45] LABS: pH ABG 7.54 (7.35-7.45)
--- NOTE | 2020-09-16 21:58 | Communication Note ---
Date of Service: September 16, 20202023: Received a text message from attending hospitalist regarding consult for patient in 222 secondary to increasing O2 requirement. Apparently, patient was scheduled to be discharged today, however he has required increasing FiO2 throughout the day. Currently, the patient is receiving 45 L and 100% on high flow. There is no available ABG or other labs. Chest x-ray was performed and did demonstrate mildly worsening multifocal pneumonia consistent with the patient's diagnosis of COVID-19 pneumonia. I did assess the patient at bedside. The patient is awake, alert, and oriented. He does appear tired and slightly tachypneic, but otherwise is not in significant distress. His O2 saturations hovered around the 90s. He is unable to prone, but will lay on his side. Currently he is laying on his RIGHT side. I did discuss my concerns with the patient regarding increasing oxygen requirement and possible need for emergent endotracheal intubation. Patient initially states "I do not want that." I did explain that if his O2 requirement continues to worsen and/or, the patient's oxygenation declines, he would require intubation. He seems reluctant, and uncertain if he would wish to undergo intubation at all. Regardless, patient is remaining full code at his admission requests and per conversation at bedside. As the patient does not appear in significant clinical distress and with room to trial noninvasives, I did reach out to the patient's hospitalist. He will be placed on broad-spectrum antibiotics given the change in worsening pneumonia. Additionally, I did recommend orders for CPAP and ABG. At this point, patient does not require transfer to the ICU unless of course he continues to decline despite attempts with noninvasives. I did assess the patient at bedside as I am ICU provider covering overnight and if the patient were to clinically deteriorate and require intervention, certainly we would oblige. Otherwise, the patient still has standard treatment therapies that can be utilized prior to decision to intubate patient. I did review the patient's records at great length, he does have an IZABELLA which is improving. Platelets are 221. Liver enzymes were appropriate on admission, but have not been rechecked. CRP was 8.11 on admission. This has not been rechecked. Unfortunately, the patient has been admitted this institution for greater than 72 hours which precludes the administration of monoclonal antibody therapy, specifically Tocilizumab. He is well outside of the window for convalescent plasma or remdesivir. At this point, patient will receive ongoing therapy as well as the additions discussed above. I did reach out to hospitalist by phone and provide update of my bedside assessment as well as review of medical records and assessment for candidacy for advanced treatment options. At this point, the patient will remain telemetry status with low threshold for transfer to the ICU in the event of worsening decline. I did review the case with my attending as well to collaborate for any other possible treatment options. I have personally spent 35 minutes of critical care time in the direct esteban gement of this patient. This is a life/limb threatening event. This includes time spent evaluating patient, direct bedside care, chart review, placing orders, interpretation of diagnostic studies, discussion with consultants, patient, and family members, as well as other required patient management activities. This time is exclusive of all separately billable procedures, and teaching time and separate from and in addition to any other critical care service time. Coding Level of Care Code Critical Care 1st 30-74 mins Time Spent (min) 35
[2020-09-16] MEDS: ACETAMINOPHEN 325 MG TAB PO PRN (22:16)
[2020-09-16] MEDS: CEFEPIME 2,000 MG in SYRINGE 0 ML IV SCH (23:48)
[2020-09-17] MEDS: ACETAMINOPHEN 325 MG TAB PO PRN ×2 (03:49→18:25)
[2020-09-17 07:26] LABS: Hematocrit (blood only) 35.6 % (42-52); Hemoglobin 12.4 g/dL (14.0-18.0); Mean Corpuscular Hemoglobin 33.2 pg (25-34); Mean Corpuscular Hgb Conc 34.8 g/dL (32-36); Mean Corpuscular Volume 95.2 fL (80-100); Mean Platelet Volume 9.6 fL (7.4-10.4); Platelet Count 221 K/uL (130-400); RDW Coefficient of Variation 14.3 % (11.5-14.5); RDW Standard Deviation 50.5 fL (36.4-46.3); Red Blood Count 3.74 M/uL (4.7-6.1); White Blood Count 9.03 K/uL (4.8-10.8)
[2020-09-17 07:50] LABS: Basophils # (auto) 0.01 K/uL (0-0.2); Basophils % (auto) 0.1 %; Immature Granulocytes # (auto) 0.04 K/uL (0.00-0.02); Immature Granulocytes % (auto) 0.4 %; Lymphocytes # (auto) 1.07 K/uL (1.2-3.4); Lymphocytes % (auto) 11.8 %; Monocytes # (auto) 0.27 K/uL (0.11-0.59); Neutrophils # (auto) 7.64 K/uL (1.4-6.5); Neutrophils % (auto) 84.7 %
[2020-09-17 07:56] LABS: BUN Creatinine Ratio 30.8 (10-20); Creatinine Clr Calc Pharmacy 43.8 ml/min; Est GFR (Non-African American) 43.2; Potassium 4.9 mmol/L (3.5-5.1)
[2020-09-17] MEDS: CLOPIDOGREL BISULFATE 75 MG TAB PO SCH (09:11)
[2020-09-17] MEDS: EZETIMIBE 10 MG TABLET PO SCH (09:12)
[2020-09-17] MEDS: dexAMETHasone 4 MG TAB PO SCH (09:12)
[2020-09-17] MEDS: ASPIRIN 81 MG ECTAB PO SCH (09:12)
[2020-09-17] MEDS: FENOFIBRATE NANOCRYSTALLIZED 145 MG TABLET PO SCH (09:13)
[2020-09-17] MEDS: INSULIN ASPART 100 UNITS/ML 3 ML PEN SC SCH ×4 (10:03→21:38)
--- NOTE | 2020-09-17 10:48 | Hospitalist Progress Note ---
Date of Service September 17, 2020 Assessment & Plan (1) COVID-19: COVID isolation precautions. Sepsis treated and resolved, due to COVID 19 pneumonia. - Started dexamethasone 6 mg PO daily on 09/14 for 10 days (End date: 09/23) - Encourage self proning - Patient decompensated overnight. -Now on high flow oxygen: 40 liters. -Appreciate input from Director Of Strategic Communications. -Will consult pulmonary. -Obtained repeat chest x ray which shows worsening pneumonia. -procal was order and is negative. -Will continue on IV antibiotics: cefepime for possible pneumonia. (2) Acute kidney failure: Unknown baseline. Requested notes from his primary care provider regarding prior labs, medical conditions, medications, and past medical history. Suspect prerenal due to hypotension on admission in setting of antihypertensive use. - Hold lisinopril and hydrochlorothiazide - Creatinine is slightly higher. - will hold IVF to keep him dry to help with his lungs. - will continue to monitor. (3) Diabetes: A1c was 6.5% this admission. - Sugars higher with steroids. BS are 130 - 260 over last 24 hours. - Will tighten sliding scale today (09/15) (4) Diarrhea: Suspect secondary to COVID-19 as above. C. diff negative on 09/14. - Imodium PRN -Patient did have some bleeding today, will closely monitor, will hold heparin sub q for now. (5) Acute hypotension: Secondary to anti-hypertensives in the setting of diarrhea and dehydration. - Management as above for IZABELLA (6) Hypertension: - As above (7) Hypercholesterolemia: - Continue ezetimibe and fenofibrate. Unclear why the patient is not on a statin. (8) Peripheral artery disease: Exact details of this unclear. Patient mentions possible stent. - Continue aspirin 81 mg p.o. daily, clopidogrel 75 mg p.o. daily, ezetimibe 10 mg p.o. daily, & fenofibrate 145 mg p.o. daily (9) DVT prophylaxis: holding Heparin 7500 units SQ Q12h continue SCD Knee Admission and Anticipated Discharge Date Admission Date: September 13, 2020 Subjective 75 yo male reports feeling comfortable on CPAP. When questioned about intubation, patient states he rather not talk about that. I explained to the patient that currently, he will remain a full code, which means if he decompensates, he may need to be intubated. Review of Systems Review of Systems: All systems reviewed & are unremarkable except as noted in HPI & below Physical Exam Physical Exam: Constitutional: WD/WN, vitals as above, comfortable on CPAP Eyes: EOM intact bilaterally; no conjunctival abnormality ENMT: external ear and nose normal, oropharynx normal Neck: trachea midline, no thyromegaly normal visual inspection Respiratory: + labored breathing Auscultation: no crackles and no wheezes Cardiovascular: RRR, no murmur, no edema Gastrointestinal (Abdomen): Inspection/Auscultation: abdomen normal to inspection; abdomen not distended Musculoskeletal: no cyanosis or clubbing, extremities motor strength 5/5 Skin: no rashes, warm and dry Neurologic: moves all extremities and awake Psychiatric: Orientation: alert, oriented to person and cooperative Results & Data Results & Data ([facility]) Vital Signs (Past 12 Hours) Vital Signs Temp Pulse Pulse Resp BP Pulse Ox Pulse Ox 09/17/20 09:30 93 09/17/20 08:50 88 L 09/17/20 08:06 70 09/17/20 07:42 68 16 93 09/17/20 07:04 36.7 C 79 27 H 125/68 95 96 09/17/20 03:38 37.7 C H 09/17/20 03:37 95 H 24 123/75 93 09/17/20 02:05 78 30 H 96 09/16/20 23:44 38.2 C H 101 H 28 H 121/59 L 94 PG Care Time/CCT Total # of Minutes Spent Total Time Spent with Patient: Total time spent is greater than 50% in coordination of care (as documented) at patient's floor/unit and/or counseling patient: Coding Level of Care Code 03655 Subseq Hosp Care Lvl 3 Diagnoses COVID-19 U07.1 Acute kidney failure N17.9 Acute renal failure type: unspecified Diabetes E11.9 Diarrhea A09 Diarrhea type: infectious Acute hypotension I95.9 Hypertension I10 Hypercholesterolemia E78.00 Peripheral artery disease I73.9 DVT prophylaxis Z29.9 Time Spent (min) 35 (1) Acute kidney failure Acute renal failure type: unspecified Qualified Code(s): N17.9 - Acute kidney failure, unspecified (2) Diarrhea Diarrhea type: infectious Qualified Code(s): A09 - Infectious gastroenteritis and colitis, unspecified
[2020-09-17] MEDS: CEFEPIME 2,000 MG in SYRINGE 0 ML IV SCH ×2 (11:02→21:43)
--- NOTE | 2020-09-17 15:49 | Pulmonary Consultation ---
Date of Consultation September 17, 2020 Assessment & Plan (1) COVID-19 virus infection: Impression: This is a 75-year-old male that was admitted for shortness of breath and found to have Covid pneumonia. Symptoms were first appreciated in late August. Patient currently is being maintained on CPAP and supplemental oxygen via high flow. Recommendations: 1. COVID-19 pneumonia: Patient initially had symptoms in late August. He is outside the window for remdesivir. He was evaluated yesterday and was outside of the 72-hour recommendation for Toclizumab. He has been placed on CPAP and is improving. We will continue with dexamethasone. Would not recommend remdesivir or convalescent plasma. Continue supportive care. Telemetry was reviewed and patient is in normal sinus rhythm. Watch for atrial fibrillation or other arrhythmia. 2. Multifocal pneumonia: Most likely secondary to COVID-19 infection. Patient does have groundglass opacities which are consistent with COVID-19 viral infection. Continue supportive care including dexamethasone and supplemental oxygen to maintain SaO2 greater than 90%. Patient does not have a diagnosed COPD although he is a former smoker. Do not recommend antibiotics at this point as the patient's procalcitonin is not elevated (0.16 ng/mL). Patient is currently afebrile but had a T-max of 38.2 C yesterday evening at 11:44 PM. With a negative procalcitonin I would not suspect that the fever is due to anything other than Covid pneumonia. Continue supportive care for viral pneumonia. 3. Acute kidney injury: Strict I's and O's. Would be careful not to over hydrate patient due to the inflammatory nature of Covid. Follow serial labs. 4. Diabetes mellitus type 2: Patient is currently receiving dexamethasone 6 mg p.o. daily per protocol for COVID-19. This will increase the patient sugars. Would recommend glycemic consult with pharmacy for sugar management and is much as patient is on oral control at home. Patient sugars have been generally controlled in the 160s and 170s. He does have an elevated BSG of 262 on 021. 5. DVT prophylaxis: Patient currently is on heparin sodium 75 units SQ every 12 hours. May consider enoxaparin. Patient is also on clopidogrel 75 mg daily for peripheral arterial disease. Out of bed to chair as tolerated Thank you for including us in the care of this patient. Pulmonary services will follow along at this time. Please refer to Dr. Watson's addendum for further recommendations and corrections. (2) LAMB (dyspnea on exertion): (3) Pneumonia: Laterality: bilateral Lung location: unspecified part of lung Pneumonia type: due to unspecified organism Qualified Code(s): J18.9 - Pneumonia, unspecified organism (4) Peripheral artery disease: (5) Diabetes: (6) IZABELLA (acute kidney injury): (7) Hypertension: (8) Hypercholesterolemia: (9) Prostate cancer: (10) DVT prophylaxis: Supervising Physician Co-Signing Physician Notes Seen and examined. EMR reviewed. Discussed with pulmonary JAYJAY and agree with assessment and plan as noted. Continue to wean noninvasive positive pressure ventilation and high flow oxygen as tolerated. Continue dexamethasone. No indication for adjuvant therapies at this point time. Given his acute kidney injury, would be reluctant to recommend diuretics at this point in time although that will need to be reassessed on a frequent basis. History of Present Illness Attending Physician: Gopi Moura History of Present Illness Attending: Dr. Watson This is a 75-year-old male that was admitted 09/13/2020 with Covid- like symptoms including generalized weakness, fever, cough, diarrhea, shortness of breath. Symptoms apparently started at the end of August. In the emergency department he is found to have a chest x-ray concerning for multifocal airspace consolidation. COVID-19 testing was performed by PCR and was positive. His procalcitonin was negative at that time. He did have some hypotension at that time but this is now resolved. He was treated empirically with Zosyn pending further work-up. The patient seem to be improving until yesterday when he was seen by Dr. Moura of the hospitalist service who is concerned with his increasing requirement for supplemental oxygen. He spoke to Dr. Dawn to evaluate for possibility of intubation. The patient was seen by ERNESTO Mortensen in the ICU and appeared to be stable. At that time the patient was on high flow supplemental oxygen at 4 L/min and 100% FiO2. He was alert and oriented with his saturations being in the 90s. At that time the patient stated that he would remain a full code but was hesitant regarding intubation and initially stated that he would not want that. Patient was seen and examined in his bed in room 222 bed 1. He continues to have some shortness of breath but seems to do fairly well with CPAP in place. He is tolerating the mask and denies claustrophobia. He states that he is unable to pronate but he is laying on his side and rotating from left to right as possible. He states he feels extremely weak but is feeling little bit better than yesterday. He denies any awareness of fever, chills, sweats, rigors. He has no night sweats. He denies chest pain or tightness. He has no abdominal pain. He has no back pain. He has no other acute complaints at this time. The patient denies any prior history of pulmonary disease or recurrent pneumonia. 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 He does have a history of PAD, hypertension, diabetes mellitus, anxiety, hypercholesterolemia, and prostate cancer. Allergies Allergy/AdvReac Type Severity Reaction Status Date / Time No Known Allergies Verified 09/13/20 14:35 Home Medications Medication Instructions Recorded Confirmed Type aspirin 81 mg tablet,delayed 81 mg PO DAILY 01/31/19 09/13/20 History release clopidogrel 75 mg tablet 75 mg PO DAILY 01/31/19 09/13/20 History ezetimibe 10 mg tablet 10 mg PO DAILY 01/31/19 09/13/20 History fenofibrate nanocrystallized 145 145 mg PO DAILY 01/31/19 09/13/20 History mg tablet glipizide 5 mg tablet 2.5 mg PO BID 01/31/19 09/13/20 History lisinopril 10 1 tab PO DAILY 01/31/19 09/13/20 History mg-hydrochlorothiazide 12.5 mg tablet trazodone 100 mg tablet 100 mg PO DAILY 01/31/19 09/13/20 History vit C,E,zinc,copper-mivpa4p 250 1 cap PO DAILY 01/31/19 09/13/20 History mg-lutein 5 mg-zeaxanthin 1 mg capsule Patient History Medical History (Updated 09/17/20 @ 15:59 by Ravi Vann PA-C) Diabetes History of tobacco abuse Hypercholesterolemia Hypertension Prostate cancer Surgical History (Updated 09/17/20 @ 15:59 by Ravi Vann PA-C) Surgical history unknown Social History Smoking Status: Former smoker Hx Alcohol Use: No Hx Substance Use: No Preferred Language: Syrian Communication Ability: Effective Current Living Situation: Other Current Living Situation Comment: Grandson, 1 level house with cellar steps Other Information That Helps Us Care for You: No Feels Safe at Home: Yes Safety Concerns: Feels Safe At This Time Assistive Devices: Glasses and Oxygen - Continuous Assistive Devices Comment: R eye prosthesis Review of Systems Review of Systems: All systems reviewed & are unremarkable except as noted in HPI & below Physical Exam Physical Exam: GENERAL : No acute distress EYES: No icterus, right eye prosthesis NOSE: No evidence of epistaxis. CPAP mask in place MOUTH: No lesions or candidiasis. CPAP mask in place. NECK: Supple LUNGS: Decreased breath sounds with rales at the bilateral bases. No appreciation of bronchospasm or rhonchi. Deep breath induces cough HEART: Regular, rate controlled at rest. Patient does become tachycardic with movement and with discussion. ABDOMEN: Soft, NT, ND, BS Present EXTREMITIES: No LE edema, pedal pulses intact NEURO: A&OX3 Results & Data Results & Data ([facility]) Vital Signs (Past 12 Hours) Vital Signs Temp Pulse Pulse Resp BP Pulse Ox Pulse Ox 09/17/20 15:01 36.8 C 70 21 121/56 L 99 09/17/20 14:53 68 09/17/20 10:59 36.4 C L 79 31 H 107/63 96 09/17/20 10:47 81 23 93 09/17/20 09:30 93 09/17/20 08:50 88 L 09/17/20 08:06 70 09/17/20 07:42 68 16 93 09/17/20 07:04 36.7 C 79 27 H 125/68 95 96 Laboratory Results 09/17/20 06:56 09/17/20 06:56 INR 1.1 (0.9-1.1) 09/13/20 13:07 09/13/20 09/16/20 13:07 21:23 ABG pH 7.54 H* ABG pCO2 26 L ABG pO2 55 L ABG HCO3 22 ABG O2 Saturation 90.2 ABG Base Excess 0.6 VBG pH 7.42 H VBG pCO2 36 L VBG pO2 31 VBG HCO3 23 VBG O2 Saturation < 60.0 VBG Base Excess -1.5 Diagnostic Findings SINGLE VIEW CHEST CLINICAL HISTORY: Hypoxia. Covid pneumonia. FINDINGS: 2 AP, portable, semierect chest radiographs are compared to study dated 09/13/2020. The examination is degraded by portable technique, patient rotation, and apical lordotic positioning. The heart is enlarged noting atherosclerotic calcification of the thoracic aorta. There is multifocal airspace consolidation, most confluent at the lung bases. No large pleural ef fusion or pneumothorax is seen. The skeletal structures are osteopenic. The bony thorax is grossly intact. IMPRESSION: Multifocal airspace consolidation is consistent with the reported history of a viral pneumonia and has modestly increased as compared to 09/13/2020. Electronically signed by: Ravi Rodrigez M.D. 09/16/2020 4:52 PM PG Care Time/CCT Total # of Minutes Spent Total Time Spent with Patient: Total time spent is greater than 50% in coordination of care (as documented) at patient's floor/unit and/or counseling patient: 35 minutes Coding Level of Care Code 25009 Inpt Consult Level 4 Diagnoses COVID-19 virus infection U07.1 LAMB (dyspnea on exertion) R06.00 Pneumonia J18.9 Laterality: bilateral Lung location: unspecified part of lung Pneumonia type: due to unspecified organism Peripheral artery disease I73.9 Diabetes E11.9 IZABELLA (acute kidney injury) N17.9 Hypertension I10 Hypercholesterolemia E78.00 Prostate cancer C61 DVT prophylaxis Z29.9 Time Spent (min) 35
[2020-09-17 18:31] LABS: Hematocrit (blood only) 36.4 % (42-52); Hemoglobin 12.8 g/dL (14.0-18.0)
[2020-09-17] MEDS: traZODone HCL 100 MG TAB PO SCH (21:40)
[2020-09-18 07:19] LABS: Basophils # (auto) 0.02 K/uL (0-0.2); Basophils % (auto) 0.2 %; Hematocrit (blood only) 35.5 % (42-52); Hemoglobin 12.3 g/dL (14.0-18.0); Immature Granulocytes # (auto) 0.04 K/uL (0.00-0.02); Immature Granulocytes % (auto) 0.5 %; Lymphocytes # (auto) 1.08 K/uL (1.2-3.4); Lymphocytes % (auto) 12.5 %; Mean Corpuscular Hemoglobin 33.4 pg (25-34); Mean Corpuscular Hgb Conc 34.6 g/dL (32-36); Mean Corpuscular Volume 96.5 fL (80-100); Mean Platelet Volume 9.3 fL (7.4-10.4); Monocytes # (auto) 0.26 K/uL (0.11-0.59); Neutrophils # (auto) 7.21 K/uL (1.4-6.5); Neutrophils % (auto) 83.8 %; Platelet Count 246 K/uL (130-400); RDW Coefficient of Variation 14.6 % (11.5-14.5); Red Blood Count 3.68 M/uL (4.7-6.1); White Blood Count 8.61 K/uL (4.8-10.8)
[2020-09-18 07:43] LABS: Albumin Level 2.2 gm/dl (3.4-5.0); BUN Creatinine Ratio 33.2 (10-20); C Reactive Protein 16.7 mg/dl (0-0.29); Calcium 9.4 mg/dl (8.5-10.1); Creatinine Clr Calc Pharmacy 52.4 ml/min; Est GFR (Non-African American) 54.4; Potassium 4.7 mmol/L (3.5-5.1)
[2020-09-18 07:48] LABS: Albumin Globulin Ratio 0.4 (0.9-2); Bilirubin,Total 0.7 mg/dl (0.2-1); Total Protein 7.2 gm/dl (6.4-8.2)
[2020-09-18] MEDS: CLOPIDOGREL BISULFATE 75 MG TAB PO SCH (08:41)
[2020-09-18] MEDS: ASPIRIN 81 MG ECTAB PO SCH (08:41)
[2020-09-18] MEDS: dexAMETHasone 4 MG TAB PO SCH (08:42)
[2020-09-18] MEDS: FENOFIBRATE NANOCRYSTALLIZED 145 MG TABLET PO SCH (08:43)
[2020-09-18] MEDS: EZETIMIBE 10 MG TABLET PO SCH (08:43)
[2020-09-18] MEDS: INSULIN ASPART 100 UNITS/ML 3 ML PEN SC SCH ×5 (09:00→21:03)
--- NOTE | 2020-09-18 09:16 | XRay Report ---
XR chest 1V portable HISTORY: Covid positive. Shortness of breath. Pneumonia. COMPARISON: Chest 09/16/2020. FINDINGS: No change in the right midlung zone and bibasilar airspace opacities consistent with a mult ifocal viral pneumonia. No pneumothorax. No pleural effusions. The heart remains stable in size. No e vidence for pulmonary edema. IMPRESSION: No change in the multifocal viral pneumonia. ACT 112: Negative or not required by law. Electronically signed by: Bubba Rider M.D. 09/18/2020 9:14 AM
--- NOTE | 2020-09-18 09:28 | Critical Care Progress Note ---
Date of Service September 18, 2020 Assessment & Plan (1) COVID-19 virus infection: Impression: This is a 75-year-old male that was admitted for shortness of breath and found to have Covid pneumonia. Symptoms were first appreciated in late August. Patient currently is being maintained on CPAP and supplemental oxygen via high flow. 24-hour events: The patient continues to require high flow oxygen and noninvasive positive pressure ventilation. He is maxed out and does well as long as he is not moving. He desaturates with any significant activity. His chest x-ray does not show any significant progression. Given the patient's profound hypoxemia and need for ventilatory support, I recommend that he be transferred to ICU status. Recommendations: 1. COVID-19 pneumonia: Patient initially had symptoms in late August. He is outside the window for remdesivir. He was evaluated yesterday and was outside of the 72-hour recommendation for Toclizumab. He has been placed on CPAP and is improving. We will continue with dexamethasone. Would not recommend remdesivir or convalescent plasma. Continue supportive care. 2. Hypoxemic respiratory failure: Most likely secondary to COVID-19 infection. Patient does have groundglass opacities which are consistent with COVID-19 viral infection. Continue supportive care including dexamethasone and supplemental oxygen to maintain SaO2 greater than 90%. Patient does not have a diagnosed COPD although he is a former smoker. Do not recommend antibiotics at this point as the patient's procalcitonin is not elevated (0.16 ng/mL). Patient is currently afebrile but had a T-max of 38.2 C yesterday evening at 11:44 PM. With a negative procalcitonin I would not suspect that the fever is due to anything other than Covid pneumonia. Continue supportive care for viral pneumonia. Patient cannot self prone. We will try lateral decubitus positioning is much as tolerated to see if we can improve his shunt fraction. W ill alternate between noninvasive positive pressure ventilation and high flow oxygen. 3. Acute kidney injury: Strict I's and O's. Would be careful not to over hydrate patient due to the inflammatory nature of Covid. Follow serial labs. 4. Diabetes mellitus type 2: Patient is currently receiving dexamethasone 6 mg p.o. daily per protocol for COVID-19. This will increase the patient sugars. Would recommend glycemic consult with pharmacy for sugar management and is much as patient is on oral control at home. Patient sugars have been generally controlled in the 160s and 170s. 5. DVT prophylaxis: Patient currently is on heparin sodium 75 units SQ every 12 hours. May consider enoxaparin. Patient is also on clopidogrel 75 mg daily for peripheral arterial disease. Out of bed to chair as tolerated Patient remains critically ill at this point time with significant possibility of clinical deterioration and . Discussed with bedside ICU nurse and on multidisciplinary rounds. Again recommend the patient be transferred to ICU status to assist with nursing care. We will continue to follow for pulmonary critical care issues. 45 minutes critical care evaluating managing and stabilizing patient. (2) LAMB (dyspnea on exertion): (3) Pneumonia: (4) Peripheral artery disease: (5) Diabetes: (6) IZABELLA (acute kidney injury): (7) Hypertension: (8) Hypercholesterolemia: (9) Prostate cancer: (10) DVT prophylaxis: Admission and Anticipated Discharge Date Admission Date: September 13, 2020 Subjective Patient seen and examined. Discussed with bedside nurse. He continues to demonstrate respiratory distress. With any significant activity he drops his oxygen saturations into the low 80% range. When he is sitting still on high flow oxygen at max settings he can maintain oxygen saturations in the mid 90% range. He states he is breathing better. He continues to decline self proning and states he cannot sleep that way. Review of Systems Review of Systems: All systems reviewed & are unremarkable except as noted in HPI & below Physical Exam Constitutional: + acute distress and + ill appearing Neck: trachea midline, no thyromegaly Respiratory: + respiratory distress Auscultation: + crackles and + rales Cardiovascular: RRR, no murmur, no edema Gastrointestinal (Abdomen): normal bowel sounds, soft, nontender, no hepatosplenomegaly Musculoskeletal: Extremities: extremities normal to inspection Skin: no rashes, warm and dry Neurologic: Nonfocal exam Lymphatic: no cervical lymphadenopathy Results & Data Results & Data ([facility]) Vital Signs (Past 12 Hours) Vital Signs Temp Pulse Pulse Resp BP Pulse Ox Pulse Ox 09/18/20 09:07 69 09/18/20 09:00 91 09/18/20 08:36 36.7 C 71 26 H 115/53 L 91 09/18/20 07:46 22 93 09/18/20 06:29 36.5 C 63 19 122/71 90 09/18/20 04:17 66 28 H 95 09/17/20 23:59 62 09/17/20 23:30 59 L 27 H 96 09/17/20 23:02 36.9 C 71 20 117/68 95 Laboratory Results 09/18/20 06:51 09/18/20 06:51 Diagnostic Findings Chest x-ray from today was independently reviewed. There are basilar hazy opacities with some right midlung zone alveolar densities which appear stable compared to the film from 09/16/2020. Coding Level of Care Code Critical Care 1st 30-74 mins Diagnoses COVID-19 virus infection U07.1 LAMB (dyspnea on exertion) R06.00 Pneumonia J18.9 Laterality: bilateral Lung location: unspecified part of lung Pneumonia type: due to unspecified organism Peripheral artery disease I73.9 Diabetes E11.9 IZABELLA (acute kidney injury) N17.9 Hypertension I10 Hypercholesterolemia E78.00 Prostate cancer C61 DVT prophylaxis Z29.9 Time Spent (min) 48 (1) Pneumonia Laterality: bilateral Lung location: unspecified part of lung Pneumonia type: due to unspecified organism Qualified Code(s): J18.9 - Pneumonia, unspecified organism
[2020-09-18] MEDS: ACETAMINOPHEN 325 MG TAB PO PRN ×2 (14:50→20:07)
[2020-09-18] MEDS: traZODone HCL 100 MG TAB PO SCH (20:07)
--- NOTE | 2020-09-18 22:06 | Hospitalist Progress Note ---
Date of Service September 18, 2020 Assessment & Plan (1) COVID-19: COVID isolation precautions. Sepsis treated and resolved, due to COVID 19 pneumonia. - Started dexamethasone 6 mg PO daily on 09/14 for 10 days (End date: 09/23) - Encourage self proning - Patient continues to require high flow oxygen -Now on high flow oxygen: 40 liters. -Appreciate input from Supervisor Intermediates. -Now transferred to ICU setting. -Obtained repeat chest x ray which shows worsening pneumonia. -procal was order and is negative. -Antibiotics on hold. (2) Acute kidney failure: Unknown baseline. Requested notes from his primary care provider regarding prior labs, medical conditions, medications, and past medical history. Suspect prerenal due to hypotension on admission in setting of antihypertensive use. - Hold lisinopril and hydrochlorothiazide - Creatinine is slightly higher. - will hold IVF to keep him dry to help with his lungs. - will continue to monitor. (3) Diabetes: A1c was 6.5% this admission. - Sugars higher with steroids. BS are 130 - 260 over last 24 hours. - Will tighten sliding scale today (09/15) (4) Diarrhea: Suspect secondary to COVID-19 as above. C. diff negative on 09/14. - Imodium PRN -Patient did have some bleeding today, will closely monitor, will hold heparin sub q for now. (5) Acute hypotension: Secondary to anti-hypertensives in the setting of diarrhea and dehydration. - Management as above for IZABELLA (6) Hypertension: - As above (7) Hypercholesterolemia: - Continue ezetimibe and fenofibrate. Unclear why the patient is not on a statin. (8) Peripheral artery disease: Exact details of this unclear. Patient mentions possible stent. - Continue aspirin 81 mg p.o. daily, clopidogrel 75 mg p.o. daily, ezetimibe 10 mg p.o. daily, & fenofibrate 145 mg p.o. daily (9) DVT prophylaxis: holding Heparin 7500 units SQ Q12h continue SCD Knee Admission and Anticipated Discharge Date Admission Date: September 13, 2020 Subjective 75 yo male reports no signifcant change. He states he will try to prone overnight. Review of Systems Review of Systems: All systems reviewed & are unremarkable except as noted in HPI & below Physical Exam Physical Exam: Constitutional: WD/WN, vitals as above, comfortable on CPAP Eyes: EOM intact bilaterally; no conjunctival abnormality ENMT: external ear and nose normal, oropharynx normal Neck: trachea midline, no thyromegaly normal visual inspection Respiratory: + labored breathing Auscultation: no crackles and no wheezes Cardiovascular: RRR, no murmur, no edema Gastrointestinal (Abdomen): Inspection/Auscultation: abdomen normal to inspection; abdomen not distended Musculoskeletal: no cyanosis or clubbing, extremities motor strength 5/5 Skin: no rashes, warm and dry Neurologic: moves all extremities and awake Psychiatric: Orientation: alert, oriented to person and cooperative Results & Data Results & Data ([facility]) Vital Signs (Past 12 Hours) Vital Signs Temp Pulse Pulse Resp BP BP Pulse Ox 09/18/20 20:02 70 24 94 09/18/20 20:00 36.7 C 70 20 134/80 92 09/18/20 18:13 71 111/56 L 94 09/18/20 17:13 64 126/74 97 09/18/20 16:13 70 136/75 97 09/18/20 16:04 36.8 C 09/18/20 15:13 65 119/68 94 09/18/20 15:04 76 22 93 09/18/20 14:13 86 107/59 L 95 09/18/20 13:13 97 H 110/58 L 97 09/18/20 12:13 75 137/71 96 09/18/20 11:27 36.6 C 09/18/20 11:13 86 26 H 118/69 96 09/18/20 10:42 101 H 22 95 PG Care Time/CCT Total # of Minutes Spent Total Time Spent with Patient: Total time spent is greater than 50% in coordination of care (as documented) at patient's floor/unit and/or counseling patient: Coding Level of Care Code 49849 Subseq Hosp Care Lvl 3 Diagnoses COVID-19 U07.1 Acute kidney failure N17.9 Acute renal failure type: unspecified Diabetes E11.9 Diarrhea A09 Diarrhea type: infectious Acute hypotension I95.9 Hypertension I10 Hypercholesterolemia E78.00 Peripheral artery disease I73.9 DVT prophylaxis Z29.9 Time Spent (min) 35 (1) Acute kidney failure Acute renal failure type: unspecified Qualified Code(s): N17.9 - Acute kidney failure, unspecified (2) Diarrhea Diarrhea type: infectious Qualified Code(s): A09 - Infectious gastroenteritis and colitis, unspecified
[2020-09-19 06:13] LABS: Basophils # (auto) 0.01 K/uL (0-0.2); Basophils % (auto) 0.1 %; Hematocrit (blood only) 37.5 % (42-52); Hemoglobin 12.7 g/dL (14.0-18.0); Immature Granulocytes # (auto) 0.04 K/uL (0.00-0.02); Immature Granulocytes % (auto) 0.5 %; Lymphocytes # (auto) 0.83 K/uL (1.2-3.4); Lymphocytes % (auto) 9.7 %; Mean Corpuscular Hemoglobin 32.4 pg (25-34); Mean Corpuscular Hgb Conc 33.9 g/dL (32-36); Mean Corpuscular Volume 95.7 fL (80-100); Mean Platelet Volume 9.9 fL (7.4-10.4); Monocytes # (auto) 0.34 K/uL (0.11-0.59); Neutrophils # (auto) 7.36 K/uL (1.4-6.5); Neutrophils % (auto) 85.7 %; Platelet Count 276 K/uL (130-400); RDW Coefficient of Variation 14.4 % (11.5-14.5); RDW Standard Deviation 50.5 fL (36.4-46.3); Red Blood Count 3.92 M/uL (4.7-6.1); White Blood Count 8.58 K/uL (4.8-10.8)
[2020-09-19 06:44] LABS: BUN Creatinine Ratio 43.3 (10-20); Calcium 9.5 mg/dl (8.5-10.1); Creatinine Clr Calc Pharmacy 55.9 ml/min; Est GFR (African American) 68.1; Est GFR (Non-African American) 58.8; Magnesium 2.7 mg/dl (1.8-2.4); Phosphorus 2.5 mg/dl (2.5-4.9); Potassium 5.2 mmol/L (3.5-5.1)
--- NOTE | 2020-09-19 08:05 | XRay Report ---
XR chest 1V portable CLINICAL HISTORY: covid COMPARISON STUDY: Chest radiograph September 18, 2020. FINDINGS: Lung volumes are normal. There is no pneumothorax or pleural effusion. Bilateral airspace o pacities persist with lower lung predominance. Slight improvement is noted. Cardiomediastinal silhoue tte is stable. There is no evidence for pulmonary edema. IMPRESSION: Minimal improvement in bilateral airspace opacities suggestive of an infectious process. ACT 112: Negative or not required by law. Electronically signed by: Viraj Nichols M.D. 09/19/2020 8:04 AM
[2020-09-19] MEDS: INSULIN ASPART 100 UNITS/ML 3 ML PEN SC SCH ×4 (08:16→21:09)
[2020-09-19] MEDS: dexAMETHasone 4 MG TAB PO SCH (08:30)
[2020-09-19] MEDS: ASPIRIN 81 MG ECTAB PO SCH (08:30)
[2020-09-19] MEDS: FENOFIBRATE NANOCRYSTALLIZED 145 MG TABLET PO SCH (08:31)
[2020-09-19] MEDS: CLOPIDOGREL BISULFATE 75 MG TAB PO SCH (08:31)
[2020-09-19] MEDS: EZETIMIBE 10 MG TABLET PO SCH (08:32)
--- NOTE | 2020-09-19 11:12 | Critical Care Progress Note ---
Date of Service September 19, 2020 Assessment & Plan (1) COVID-19 virus infection: Impression: This is a 75-year-old male that was admitted for shortness of breath and found to have Covid pneumonia. Symptoms were first appreciated in late August. Patient currently is being maintained on CPAP and supplemental oxygen via high flow. 24-hour events: Patient has been stable alternating between noninvasive positive pressure ventilation and high flow oxygen. He is slightly improved today with a decrease in his FiO2 down to 0.9. He denies any respiratory fatigue. Recommendations: 1. COVID-19 pneumonia: Patient initially had symptoms in late August. He is outside the window for remdesivir. He was outside of the 72-hour recommendation for Toclizumab. He has been placed on CPAP alternating with high flow and is improving. We will continue with dexamethasone. Would not recommend remdesivir or convalescent plasma. Continue supportive care. 2. Hypoxemic respiratory failure: Most likely secondary to COVID-19 infection. Patient does have groundglass opacities which are consistent with COVID-19 viral infection. Continue supportive care including dexamethasone and supplemental oxygen to maintain SaO2 greater than 90%. Patient does not have a diagnosed [place] PD although he is a former smoker. Do not recommend antibiotics at this point as the patient's procalcitonin is not elevated (0.16 ng/mL). Patient refuses to self prone. We will try lateral decubitus positioning is much as tolerated to see if we can improve his shunt fraction. Will alternate between noninvasive positive pressure ventilation and high flow oxygen. 3. Acute kidney injury: Strict I's and O's. Would be careful not to over hydrate patient due to the inflammatory nature of Covid. Follow serial labs. 4. Diabetes mellitus type 2: Patient is currently receiving dexamethasone 6 mg p.o. daily per protocol for COVID-19. Glycemic control per pharmacy 5. DVT prophylaxis: Patient currently is on heparin sodium 75 units SQ every 12 hours. May consider enoxaparin. Patient is also on clopidogrel 75 mg daily for peripheral arterial disease. Out of bed to chair as tolerated 6. Hyperkalemia: Telemetry does not demonstrate any prolongation and QRS or peaked T waves. Continue to follow for now. 7. Hematochezia: No evidence of ongoing blood loss. Continue DVT prophylaxis. Hemoglobin and hematocrit are stable. Patient remains critically ill at this point time with significant possibility of clinical deterioration and . Discussed with bedside ICU nurse and on multidisciplinary rounds. Continue to follow in ICU for the next 24 to 48 hours to ensure clinical stability before returning back to the hospital service. 40 minutes critical care time evaluating managing this patient. (2) LAMB (dyspnea on exertion): (3) Pneumonia: (4) Peripheral artery disease: (5) Diabetes: (6) IZABELLA (acute kidney injury): (7) Hypertension: (8) Hypercholesterolemia: (9) Prostate cancer: (10) DVT prophylaxis: Admission and Anticipated Discharge Date Admission Date: September 13, 2020 Subjective He denies any abdominal pain or nausea or vomiting. He has not had any melena hematochezia or hematemesis. No bowel movements reported with nursing. Patient seen and examined. Discussed with critical care nurse at the bedside. The patient thinks he is doing slightly better today. We have been able to wean his oxygen somewhat. He used CPAP overnight and is back to high flow oxygen this morning. He is tolerating a small amount of p.o. He is not coughing or expectorating significant phlegm. Review of Systems Review of Systems: All systems reviewed & are unremarkable except as noted in HPI & below Physical Exam Constitutional: + acute distress and + ill appearing Neck: trachea midline, no thyromegaly Respiratory: + respiratory distress Auscultation: + crackles and + rales Cardiovascular: RRR, no murmur, no edema Gastrointestinal (Abdomen): normal bowel sounds, soft, nontender, no hepatosp lenomegaly Musculoskeletal: Extremities: extremities normal to inspection Skin: no rashes, warm and dry Lymphatic: no cervical lymphadenopathy Results & Data Results & Data ([facility]) Vital Signs (Past 12 Hours) Vital Signs Pulse Pulse Resp BP Pulse Ox 09/19/20 11:04 93 H 22 93 09/19/20 08:51 95 H 22 87 L 09/19/20 08:49 97 H 120/71 87 L 09/19/20 08:19 91 H 124/60 90 09/19/20 08:00 77 89 L 09/19/20 07:49 92 H 155/68 H 91 09/19/20 07:19 75 139/68 91 09/19/20 07:00 100 H 91 09/19/20 03:14 70 22 91 09/19/20 03:00 64 89 L 09/19/20 02:50 77 115/34 L 87 L 09/19/20 02:19 69 122/58 L 89 L 09/19/20 02:00 70 90 09/19/20 01:49 60 125/59 L 90 09/19/20 01:19 68 140/67 90 09/19/20 01:00 51 L 91 09/19/20 00:49 66 125/78 93 09/19/20 00:20 49 L 93 09/19/20 00:00 59 L 92 09/18/20 23:50 63 148/70 H 93 09/18/20 23:48 61 93 09/18/20 23:46 65 92 09/18/20 23:30 52 L 96 09/18/20 23:19 53 L 91/29 L 95 Laboratory Results 09/19/20 05:42 09/19/20 05:42 Diagnostic Findings Chest x-ray from today was independently reviewed. There are patchy basilar opacities not significantly changed from prior Coding Level of Care Code Critical Care 1st 30-74 mins Diagnoses COVID-19 virus infection U07.1 LAMB (dyspnea on exertion) R06.00 Pneumonia J18.9 Laterality: bilateral Lung location: unspecified part of lung Pneumonia type: due to unspecified organism Peripheral artery disease I73.9 Diabetes E11.9 IZABELLA (acute kidney injury) N17.9 Hypertension I10 Hypercholesterolemia E78.00 Prostate cancer C61 DVT prophylaxis Z29.9 Time Spent (min) 40 (1) Pneumonia Laterality: bilateral Lung location: unspecified part of lung Pneumonia type: due to unspecified organism Qualified Code(s): J18.9 - Pneumonia, unspecified organism
[2020-09-19] MEDS: traZODone HCL 100 MG TAB PO SCH (21:26)
[2020-09-19] MEDS: ACETAMINOPHEN 325 MG TAB PO PRN (21:30)
--- NOTE | 2020-09-19 22:26 | Hospitalist Progress Note ---
Date of Service September 19, 2020 Assessment & Plan (1) COVID-19: COVID isolation precautions. Sepsis treated and resolved, due to COVID 19 pneumonia. - Started dexamethasone 6 mg PO daily on 09/14 for 10 days (End date: 09/23) - Encourage self proning - Patient continues to require high flow oxygen -Now on high flow oxygen: 40 liters. -Appreciate input from Plate And Weld Inspector. -Now transferred to ICU setting. -Obtained repeat chest x ray which shows worsening pneumonia. -procal was order and is negative. -Antibiotics stopped (2) Acute kidney failure: Unknown baseline. Requested notes from his primary care provider regarding prior labs, medical conditions, medications, and past medical history. Suspect prerenal due to hypotension on admission in setting of antihypertensive use. - Hold lisinopril and hydrochlorothiazide - Creatinine is slightly higher. - will hold IVF to keep him dry to help with his lungs. - will continue to monitor. (3) Diabetes: A1c was 6.5% this admission. - Sugars higher with steroids. BS are 130 - 260 over last 24 hours. - Will tighten sliding scale today (09/15) (4) Diarrhea: Suspect secondary to COVID-19 as above. C. diff negative on 09/14. - Imodium PRN -Patient did have some bleeding today, will closely monitor, will hold heparin sub q for now. (5) Acute hypotension: Secondary to anti-hypertensives in the setting of diarrhea and dehydration. - Management as above for IZABELLA (6) Hypertension: - As above (7) Hypercholesterolemia: - Continue ezetimibe and fenofibrate. Unclear why the patient is not on a statin. (8) Peripheral artery disease: Exact details of this unclear. Patient mentions possible stent. - Continue aspirin 81 mg p.o. daily, clopidogrel 75 mg p.o. daily, ezetimibe 10 mg p.o. daily, & fenofibrate 145 mg p.o. daily (9) DVT prophylaxis: holding Heparin 7500 units SQ Q12h continue SCD Knee updated family Admission and Anticipated Discharge Date Admission Date: September 13, 2020 Subjective 75 yo m reports no significant change. Review of Systems Review of Systems: All systems reviewed & are unremarkable except as noted in HPI & below Physical Exam Physical Exam: Constitutional: WD/WN, vitals as above, comfortable on CPAP Eyes: EOM intact bilaterally; no conjunctival abnormality ENMT: external ear and nose normal, oropharynx normal Neck: trachea midline, no thyromegaly normal visual inspection Respiratory: + labored breathing Auscultation: no crackles and no wheezes Cardiovascular: RRR, no murmur, no edema Gastrointestinal (Abdomen): Inspection/Auscultation: abdomen normal to inspection; abdomen not distended Musculoskeletal: no cyanosis or clubbing, extremities motor strength 5/5 Skin: no rashes, warm and dry Neurologic: moves all extremities and awake Psychiatric: Orientation: alert, oriented to person and cooperative Results & Data Results & Data ([facility]) Vital Signs (Past 12 Hours) Vital Signs Temp Pulse Pulse Resp BP BP Pulse Ox 09/19/20 20:22 36.7 C 09/19/20 20:10 94 09/19/20 17:19 75 165/91 H 92 09/19/20 17:00 69 93 09/19/20 16:49 75 155/80 H 100 09/19/20 16:19 73 153/85 H 94 09/19/20 16:00 36.5 C 81 93 09/19/20 15:49 78 156/80 H 94 09/19/20 15:38 82 20 92 09/19/20 15:20 86 151/77 H 90 09/19/20 15:05 36.7 C 79 20 132/89 94 09/19/20 15:00 82 94 09/19/20 14:49 86 132/89 91 09/19/20 14:19 86 154/70 H 91 09/19/20 14:00 94 H 91 09/19/20 13:49 78 147/70 H 96 09/19/20 13:19 95 H 141/80 H 93 09/19/20 13:00 101 H 91 09/19/20 12:49 96 H 156/68 H 93 09/19/20 12:19 89 141/80 H 93 09/19/20 12:00 96 H 92 09/19/20 11:49 84 127/84 91 09/19/20 11:19 98 H 154/83 H 93 09/19/20 11:04 93 H 22 93 09/19/20 11:00 102 H 92 09/19/20 10:49 105 H 153/79 H 91 PG Care Time/CCT Total # of Minutes Spent Total Time Spent with Patient: Total time spent is greater than 50% in coordination of care (as documented) at patient's floor/unit and/or counseling patient: Coding Level of Care Code 12721 Subseq Hosp Care Lvl 2 Diagnoses COVID-19 U07.1 Acute kidney failure N17.9 Acute renal failure type: unspecified Diabetes E11.9 Diarrhea A09 Diarrhea type: infectious Acute hypotension I95.9 Hypertension I10 Hypercholesterolemia E78.00 Peripheral artery disease I73.9 DVT prophylaxis Z29.9 Time Spent (min) 25 (1) Acute kidney failure Acute renal failure type: unspecified Qualified Code(s): N17.9 - Acute kidney failure, unspecified (2) Diarrhea Diarrhea type: infectious Qualified Code(s): A09 - Infectious gastroenteritis and colitis, unspecified
[2020-09-20 07:30] LABS: Basophils # (auto) 0.01 K/uL (0-0.2); Basophils % (auto) 0.1 %; Eosinophils # (auto) 0.01 K/uL (0-0.5); Eosinophils % (auto) 0.1 %; Hematocrit (blood only) 38.9 % (42-52); Hemoglobin 13.2 g/dL (14.0-18.0); Immature Granulocytes % (auto) 1.3 %; Lymphocytes # (auto) 0.92 K/uL (1.2-3.4); Lymphocytes % (auto) 12.2 %; Mean Corpuscular Hemoglobin 32.7 pg (25-34); Mean Corpuscular Hgb Conc 33.9 g/dL (32-36); Mean Corpuscular Volume 96.3 fL (80-100); Monocytes # (auto) 0.36 K/uL (0.11-0.59); Monocytes % (auto) 4.8 %; Neutrophils # (auto) 6.14 K/uL (1.4-6.5); Neutrophils % (auto) 81.5 %; Platelet Count 296 K/uL (130-400); RDW Coefficient of Variation 14.3 % (11.5-14.5); RDW Standard Deviation 51.2 fL (36.4-46.3); Red Blood Count 4.04 M/uL (4.7-6.1); White Blood Count 7.54 K/uL (4.8-10.8)
[2020-09-20 07:55] LABS: BUN Creatinine Ratio 46.4 (10-20); Calcium 9.5 mg/dl (8.5-10.1); Est GFR (African American) 65.5; Est GFR (Non-African American) 56.5; Magnesium 2.6 mg/dl (1.8-2.4); Phosphorus 2.9 mg/dl (2.5-4.9); Potassium 4.9 mmol/L (3.5-5.1)
--- NOTE | 2020-09-20 08:10 | XRay Report ---
XR chest 1V portable CLINICAL HISTORY: covid COMPARISON STUDY: Chest radiograph September 19, 2020. FINDINGS: Lung volumes are normal. There is no pneumothorax or pleural the effusion. Right midlung op acity is slightly increased. Bibasilar opacities have slightly increased. Cardiomediastinal silhouett e is stable. IMPRESSION: Slight progression of bilateral airspace opacities consistent with an infectious process . ACT 112: Negative or not required by law. Electronically signed by: Viraj Nichols M.D. 09/20/2020 8:08 AM
[2020-09-20] MEDS: ASPIRIN 81 MG ECTAB PO SCH (08:30)
[2020-09-20] MEDS: EZETIMIBE 10 MG TABLET PO SCH (08:30)
[2020-09-20] MEDS: CLOPIDOGREL BISULFATE 75 MG TAB PO SCH (08:30)
[2020-09-20] MEDS: FENOFIBRATE NANOCRYSTALLIZED 145 MG TABLET PO SCH (08:31)
[2020-09-20] MEDS: dexAMETHasone 4 MG TAB PO SCH (08:31)
[2020-09-20] MEDS: ACETAMINOPHEN 325 MG TAB PO PRN ×3 (08:56→20:28)
[2020-09-20] MEDS: INSULIN ASPART 100 UNITS/ML 3 ML PEN SC SCH ×4 (09:04→20:35)
--- NOTE | 2020-09-20 13:29 | Critical Care Progress Note ---
Date of Service September 20, 2020 Assessment & Plan (1) COVID-19 virus infection: Impression: This is a 75-year-old male that was admitted for shortness of breath and found to have Covid pneumonia. Symptoms were first appreciated in late August. Patient currently is being maintained on CPAP and supplemental oxygen via high flow. 24-hour events: Patient has been stable alternating between noninvasive positive pressure ventilation and high flow oxygen. He is stable today. He denies any respiratory fatigue. Recommendations: 1. COVID-19 pneumonia: Patient initially had symptoms in late August. He is outside the window for remdesivir. He was outside of the 72-hour recommendation for Toclizumab. He has been placed on CPAP alternating with high flow and is stable. We will continue with dexamethasone. Would not recommend remdesivir or convalescent plasma. Continue supportive care. No indication for intubation currently but at risk for respiratory fatigue and continued clinical follow up recommended. 2. Hypoxemic respiratory failure: Most likely secondary to COVID-19 infection. Patient does have groundglass opacities which are consistent with COVID-19 viral infection. Continue supportive care including dexamethasone and supplemental oxygen to maintain SaO2 greater than 90%. Patient does not have a diagnosed COPD although he is a former smoker. Do not recommend antibiotics at this point as the patient's procalcitonin is not elevated (0.16 ng/mL). Patient refuses to self prone. We will try lateral decubitus positioning is much as tolerated to see if we can improve his shunt fraction. Will alternate between noninvasive positive pressure ventilation and high flow oxygen. 3. Acute kidney injury: Strict I's and O's. Would be careful not to over hydrate patient due to the inflammatory nature of Covid. Follow serial labs. 4. Diabetes mellitus type 2: Patient is currently receiving dexamethasone 6 mg p.o. daily per protocol for COVID-19. Glycemic control per pharmacy 5. DVT prophylaxis: Patient currently is on heparin sodium 75 units SQ every 12 hours. May consider enoxaparin. Patient is also on clopidogrel 75 mg daily for peripheral arterial disease. Out of bed to chair as tolerated 6. Hyperkalemia: Telemetry does not demonstrate any prolongation and QRS or peaked T waves. Continue to follow for now. 7. Hematochezia: No evidence of ongoing blood loss. Continue DVT prophylaxis. Hemoglobin and hematocrit are stable. Patient remains critically ill at this point time with significant possibility of clinical deterioration and . Discussed with bedside ICU nurse. Continue to follow in ICU for the next 24 hours to ensure clinical stability before returning back to the hospital service. 35 minutes critical care time evaluating managing this patient. (2) LAMB (dyspnea on exertion): (3) Pneumonia: (4) Peripheral artery disease: (5) Diabetes: (6) IZABELLA (acute kidney injury): (7) Hypertension: (8) Hypercholesterolemia: (9) Prostate cancer: (10) DVT prophylaxis: Admission and Anticipated Discharge Date Admission Date: September 13, 2020 Subjective Patient seen and examined. He states he is doing okay. He is intermittently transitioning between CPAP and high flow oxygen. No chest pain palpitations. He is tolerating a limited diet. He feels that his breathing is acceptable. He is not experiencing any increased work of breathing currently. No chest pain palpitations or significant lower extremity edema. Review of Systems Review of Systems: All systems reviewed & are unremarkable except as noted in HPI & below Physical Exam Constitutional: + acute distress and + ill appearing Neck: trachea midline, no thyromegaly Respiratory: + respiratory distress Auscultation: + crackles and + rales Cardiovascular: RRR, no murmur, no edema Gastrointestinal (Abdomen): normal bowel sounds, soft, nontender, no hepatosplenomegaly Musculoskeletal: Extremities: extremities normal to inspection Skin: no rashes, warm and dry Lymphatic: no cervical lymphadenopathy Results & Data Results & Data ([facility]) Vital Signs (Past 12 Hours) Vital Signs Temp Pulse Pulse Resp BP Pulse Ox 09/20/20 12:20 93 H 24 142/82 H 93 09/20/20 12:00 88 94 09/20/20 11:50 88 151/82 H 94 09/20/20 11:43 91 H 24 94 09/20/20 11:20 90 121/89 97 09/20/20 11:16 37.0 C 09/20/20 11:00 84 100 09/20/20 10:50 92 H 154/76 H 95 09/20/20 10:20 88 104/71 91 09/20/20 10:00 112 H 89 L 09/20/20 09:50 113 H 149/75 H 90 09/20/20 09:20 103 H 112/83 86 L 04/11/21 09:00 105 H 89 L 09/20/20 08:50 115 H 130/95 89 L 09/20/20 08:20 86 144/88 H 92 09/20/20 08:00 82 93 09/20/20 07:50 82 157/76 H 94 09/20/20 07:20 81 150/87 H 96 09/20/20 07:15 83 17 96 09/20/20 07:00 74 92 09/20/20 02:22 69 20 93 Laboratory Results 09/20/20 06:44 09/20/20 06:44 Diagnostic Findings Chest x-ray today was independently reviewed. Persistent basilar opacities are noted. No significant change compared to prior imaging Coding Level of Care Code Critical Care 1st 30-74 mins Diagnoses COVID-19 virus infection U07.1 LAMB (dyspnea on exertion) R06.00 Pneumonia J18.9 Laterality: bilateral Lung location: unspecified part of lung Pneumonia type: due to unspecified organism Peripheral artery disease I73.9 Diabetes E11.9 IZABELLA (acute kidney injury) N17.9 Hypertension I10 Hypercholesterolemia E78.00 Prostate cancer C61 DVT prophylaxis Z29.9 Time Spent (min) 35 (1) Pneumonia Laterality: bilateral Lung location: unspecified part of lung Pneumonia type: due to unspecified organism Qualified Code(s): J18.9 - Pneumonia, un specified organism
[2020-09-20] MEDS: traZODone HCL 100 MG TAB PO SCH (20:27)
--- NOTE | 2020-09-21 05:56 | Hospitalist Progress Note ---
Date of Service September 20, 2020 Assessment & Plan (1) COVID-19: COVID isolation precautions. Sepsis treated and resolved, due to COVID 19 pneumonia. - Started dexamethasone 6 mg PO daily on 09/14 for 10 days (End date: 09/23) - Encourage self proning - Patient continues to require high flow oxygen -Now on high flow oxygen: 40 liters at 90 % FIO2. -Appreciate input from Room Service Runner. -Now transferred to ICU setting. -procal was order and is negative. -Antibiotics stopped -updated son Nelson extensively. guarded prognosis given lack of improvement. will continue to monitor. (2) Acute kidney failure: Unknown baseline. Requested notes from his primary care provider regarding prior labs, medical conditions, medications, and past medical history. Suspect prerenal due to hypotension on admission in setting of antihypertensive use. - Hold lisinopril and hydrochlorothiazide - Creatinine is normal. - will hold IVF to keep him dry to help with his lungs. - will continue to monitor. (3) Diabetes: A1c was 6.5% this admission. - Sugars higher with steroids. BS are 121-210 over last 24 hours. - Will monitor. (4) Diarrhea: Suspect secondary to COVID-19 as above. C. diff negative on 09/14. - Imodium PRN -no further bleeding, will closely monitor, will hold heparin sub q for now. (5) Acute hypotension: Secondary to anti-hypertensives in the setting of diarrhea and dehydration. - Management as above for IZABELLA (6) Hypertension: - As above (7) Hypercholesterolemia: - Continue ezetimibe and fenofibrate. Unclear why the patient is not on a statin. (8) Peripheral artery disease: Exact details of this unclear. Patient mentions possible stent. - Continue aspirin 81 mg p.o. daily, clopidogrel 75 mg p.o. daily, ezetimibe 10 mg p.o. daily, & fenofibrate 145 mg p.o. daily (9) DVT prophylaxis: holding Heparin 7500 units SQ Q12h continue SCD Knee updated family Admission and Anticipated Discharge Date Admission Date: September 13, 2020 Subjective Patient reports no significant change. He is comofortable on the current settings of high flow. Review of Systems Review of Systems: All systems reviewed & are unremarkable except as noted in HPI & below Physical Exam Physical Exam: Constitutional: WD/WN, vitals as above, comfortable on CPAP Eyes: EOM intact bilaterally; no conjunctival abnormality ENMT: external ear and nose normal, oropharynx normal Neck: trachea midline, no thyromegaly normal visual inspection Respiratory: + labored breathing Auscultation: no crackles and no wheezes Cardiovascular: RRR, no murmur, no edema Gastrointestinal (Abdomen): Inspection/Auscultation: abdomen normal to inspection; abdomen not distended Musculoskeletal: no cyanosis or clubbing, extremities motor strength 5/5 Skin: no rashes, warm and dry Neurologic: moves all extremities and awake Psychiatric: Orientation: alert, oriented to person and cooperative Results & Data Results & Data ([facility]) Vital Signs (Past 12 Hours) Vital Signs Temp Pulse Pulse Resp BP BP Pulse Ox 09/21/20 03:34 36.4 C L 90 20 164/83 H 92 09/21/20 02:21 81 20 92 09/21/20 02:00 76 93 09/21/20 01:50 82 140/77 92 09/21/20 01:30 75 92 09/21/20 01:20 75 145/81 H 91 09/21/20 01:00 71 92 09/21/20 00:50 65 132/73 90 09/21/20 00:30 67 93 09/21/20 00:20 72 140/70 94 09/21/20 00:00 74 95 09/20/20 23:50 71 146/76 H 95 09/20/20 23:30 72 94 09/20/20 23:29 70 140/73 93 09/20/20 23:28 36.4 C L 78 20 140/73 93 09/20/20 23:20 68 144/72 H 93 09/20/20 23:08 70 70 22 93 09/20/20 23:00 61 92 09/20/20 22:50 67 123/63 90 09/20/20 22:30 62 92 09/20/20 22:20 74 130/72 92 09/20/20 22:00 75 89 L 09/20/20 21:50 68 124/63 90 09/20/20 21:30 69 88 L 09/20/20 21:20 66 114/59 L 90 09/20/20 21:00 72 92 09/20/20 20:50 70 118/62 90 09/20/20 20:30 78 91 04/11/21 20:21 87 131/76 91 09/20/20 20:00 94 H 88 L 09/20/20 19:50 85 149/84 H 90 09/20/20 19:34 84 26 H 92 09/20/20 19:30 91 H 91 09/20/20 19:28 88 160/74 H 92 09/20/20 19:27 36.9 C 83 20 160/74 H 91 09/20/20 19:20 94 H 147/84 H 89 L 09/20/20 19:00 97 H 90 09/20/20 18:50 95 H 163/94 H 89 L 09/20/20 18:30 94 H 92 09/20/20 18:20 97 H 156/81 H 92 09/20/20 18:00 99 H 26 H 92 09/20/20 17:51 89 161/80 H 92 PG Care Time/CCT Total # of Minutes Spent Total Time Spent with Patient: Total time spent is greater than 50% in coordination of care (as documented) at patient's floor/unit and/or counseling patient: Coding Level of Care Code 47033 Subseq Hosp Care Lvl 3 Diagnoses COVID-19 U07.1 Acute kidney failure N17.9 Acute renal failure type: unspecified Diabetes E11.9 Diarrhea A09 Diarrhea type: infectious Acute hypotension I95.9 Hypertension I10 Hypercholesterolemia E78.00 Peripheral artery disease I73.9 DVT prophylaxis Z29.9 Time Spent (min) 35 (1) Acute kidney failure Acute renal failure type: unspecified Qualified Code(s): N17.9 - Acute kidney failure, unspecified (2) Diarrhea Diarrhea type: infectious Qualified Code(s): A09 - Infectious gastroenteritis and colitis, unspecified
[2020-09-21] MEDS: ACETAMINOPHEN 325 MG TAB PO PRN ×2 (06:01→21:05)
[2020-09-21 07:09] LABS: Basophils # (auto) 0.01 K/uL (0-0.2); Basophils % (auto) 0.1 %; Eosinophils # (auto) 0.03 K/uL (0-0.5); Eosinophils % (auto) 0.3 %; Hematocrit (blood only) 38.8 % (42-52); Hemoglobin 13.5 g/dL (14.0-18.0); Immature Granulocytes # (auto) 0.19 K/uL (0.00-0.02); Lymphocytes # (auto) 1.09 K/uL (1.2-3.4); Lymphocytes % (auto) 11.6 %; Mean Corpuscular Hemoglobin 33.4 pg (25-34); Mean Corpuscular Hgb Conc 34.8 g/dL (32-36); Mean Platelet Volume 10.1 fL (7.4-10.4); Monocytes # (auto) 0.42 K/uL (0.11-0.59); Monocytes % (auto) 4.5 %; Neutrophils # (auto) 7.62 K/uL (1.4-6.5); Neutrophils % (auto) 81.5 %; Platelet Count 253 K/uL (130-400); RDW Coefficient of Variation 14.1 % (11.5-14.5); RDW Standard Deviation 49.6 fL (36.4-46.3); Red Blood Count 4.04 M/uL (4.7-6.1); White Blood Count 9.36 K/uL (4.8-10.8)
[2020-09-21 07:47] LABS: BUN Creatinine Ratio 47.9 (10-20); Calcium 9.8 mg/dl (8.5-10.1); Creatinine Clr Calc Pharmacy 51.6 ml/min; Est GFR (African American) 61.3; Est GFR (Non-African American) 52.9; Magnesium 2.3 mg/dl (1.8-2.4); Phosphorus 2.5 mg/dl (2.5-4.9); Potassium 4.7 mmol/L (3.5-5.1)
[2020-09-21] MEDS: dexAMETHasone 4 MG TAB PO SCH (08:01)
[2020-09-21] MEDS: ASPIRIN 81 MG ECTAB PO SCH (08:02)
[2020-09-21] MEDS: CLOPIDOGREL BISULFATE 75 MG TAB PO SCH (08:03)
[2020-09-21] MEDS: FENOFIBRATE NANOCRYSTALLIZED 145 MG TABLET PO SCH (08:03)
[2020-09-21] MEDS: EZETIMIBE 10 MG TABLET PO SCH (08:03)
--- NOTE | 2020-09-21 09:00 | XRay Report ---
XR chest 1V portable CLINICAL HISTORY: Respiratory failure. COMPARISON STUDY: Chest radiograph September 20, 2020. FINDINGS: Lung volumes are normal. There is no pneumothorax or pleural effusion. There is probable un derlying emphysema. Bibasilar airspace opacities have improved. Cardiomediastinal silhouette is stabl e. IMPRESSION: Interval improvement in bilateral pulmonary opacities. ACT 112: Negative or not required by law. Electronically signed by: Viraj Nichols M.D. 09/21/2020 8:59 AM
[2020-09-21] MEDS: INSULIN ASPART 100 UNITS/ML 3 ML PEN SC SCH ×4 (09:34→20:57)
--- NOTE | 2020-09-21 11:36 | Critical Care Progress Note ---
Date of Service September 21, 2020 Assessment & Plan (1) COVID-19 virus infection: Impression: This is a 75-year-old male that was admitted for shortness of breath and found to have Covid pneumonia. Symptoms were first appreciated in late August. Patient currently is being maintained on CPAP and supplemental oxygen via high flow. 24-hour events: Patient has been stable alternating between noninvasive positive pressure ventilation and high flow oxygen. He is stable today. He denies any respiratory fatigue. Recommendations: 1. COVID-19 pneumonia: Continue alternating between CPAP and high flow nasal cannula. Started on twice daily budesonide nebulizations. Continue with Decadron. I discussed CODE STATUS with the patient and he indicated that he would like to remain a full code at this time. He is still very ill and requiring high amounts of high flow oxygen support. Repeat CRP is pending. No signs of superimposed bacterial infection at this time. 2. Hypoxemic respiratory failure: Most likely secondary to COVID-19 infection. Patient does have groundglass opacities which are consistent with COVID-19 viral infection. Continue supportive care including dexamethasone and supplemental oxygen to maintain SaO2 greater than 90%. Patient does not have a diagnosed COPD although he is a former smoker. Antibiotics not indicated at this time. Patient refuses to self prone. Will alternate between noninvasive positive pressure ventilation and high flow oxygen. 3. Acute kidney injury: Resolved. 4. Diabetes mellitus type 2: Patient is currently receiving dexamethasone 6 mg p.o. daily per protocol for COVID-19. Glycemic control per pharmacy 5. DVT prophylaxis: Patient currently is on heparin sodium 7500 units SQ every 12 hours. May consider enoxaparin. Patient is also on clopidogrel 75 mg daily for peripheral arterial disease. Out of bed to chair as tolerated 6. Hyperkalemia: Resolved. 7. Hematochezia: No evidence of ongoing blood loss. Continue DVT prophylaxis. Hemoglobin and hematocrit are stable. CRITICAL CARE TIME - I have personally spent 32 minutes of critical care time in the direct management of this patient. This is a life/limb threatening event. This includes time spent evaluating patient, direct bedside care, chart review, placing orders, interpretation of diagnostic studies, discussion with consultants, patient, and family members, as well as other required patient management ac tivities. This time is exclusive of all separately billable procedures, and teaching time and separate from and in addition to any other critical care service time. (2) LAMB (dyspnea on exertion): (3) Pneumonia: (4) Peripheral artery disease: (5) Diabetes: (6) IZABELLA (acute kidney injury): (7) Hypertension: (8) Hypercholesterolemia: (9) Prostate cancer: (10) DVT prophylaxis: Admission and Anticipated Discharge Date Admission Date: September 13, 2020 Subjective Patient seen and examined this morning. He denies any chest pain. He notes that he was wanting someone to clean him up. He does appear anxious. No fevers chills. Required 90% FiO2 from the high flow nasal cannula this morning. Saturations 91%. Review of Systems Review of Systems: All systems reviewed & are unremarkable except as noted in HPI & below Physical Exam Constitutional: + acute distress and + ill appearing Neck: trachea midline, no thyromegaly Respiratory: + respiratory distress Auscultation: + crackles and + rales Cardiovascular: RRR, no murmur, no edema Gastrointestinal (Abdomen): normal bowel sounds, soft, nontender, no hepatosplenomegaly Musculoskeletal: Extremities: extremities normal to inspection Skin: no rashes, warm and dry Lymphatic: no cervical lymphadenopathy Results & Data Results & Data ([facility]) Vital Signs (Past 12 Hours) Vital Signs Temp Pulse Pulse Resp BP BP Pulse Ox 09/21/20 11:17 99.0 F 90 93 H 24 152/104 H 152/104 H 91 09/21/20 11:00 103 H 92 09/21/20 10:51 103 H 137/81 91 09/21/20 10:45 109 H 22 95 09/21/20 10:21 98 H 154/90 H 92 09/21/20 10:00 103 H 94 09/21/20 09:51 113 H 138/87 92 09/21/20 09:21 106 H 169/88 H 92 09/21/20 09:00 112 H 93 09/21/20 08:51 118 H 155/83 H 93 09/21/20 08:21 112 H 148/111 H 92 09/21/20 08:00 109 H 91 09/21/20 07:59 98.6 F 106 H 145/90 H 91 09/21/20 07:51 111 H 134/86 91 09/21/20 07:50 108 H 22 91 09/21/20 07:21 112 H 140/87 92 09/21/20 07:00 105 H 91 09/21/20 03:34 97.5 F L 90 20 164/83 H 92 09/21/20 02:21 81 20 92 09/21/20 02:00 76 93 09/21/20 01:50 82 140/77 92 09/21/20 01:30 75 92 09/21/20 01:20 75 145/81 H 91 09/21/20 01:00 71 92 09/21/20 00:50 65 132/73 90 09/21/20 00:30 67 93 09/21/20 00:20 72 140/70 94 09/21/20 00:00 74 95 09/20/20 23:50 71 146/76 H 95 09/20/20 23:30 72 94 09/20/20 23:29 70 140/73 93 09/20/20 23:28 97.5 F L 78 20 140/73 93 I reviewed the vital signs, labs and imaging Coding Level of Care Code Critical Care 1st 30-74 mins Diagnoses COVID-19 virus infection U07.1 ALMB (dyspnea on exertion) R06.00 Pneumonia J18.9 Laterality: bilateral Lung location: unspecified part of lung Pneumonia type: due to unspecified organism Peripheral artery disease I73.9 Diabetes E11.9 IZABELLA (acute kidney injury) N17.9 Hypertension I10 Hypercholesterolemia E78.00 Prostate cancer C61 DVT prophylaxis Z29.9 Time Spent (min) 32 (1) Pneumonia Laterality: bilateral Lung location: unspecified part of lung Pneumonia type: due to unspecified organism Qualified Code(s): J18.9 - Pneumonia, unspecified organism
[2020-09-21 11:48] LABS: D Dimer 2920 ug/L FEU (0-500)
[2020-09-21] MEDS: BUDESONIDE 0.5 MG/2 ML VIAL (PULMICORT) NEB SCH (19:12)
[2020-09-21] MEDS: traZODone HCL 100 MG TAB PO SCH (20:58)
--- NOTE | 2020-09-21 23:25 | Hospitalist Progress Note ---
Date of Service September 21, 2020 Assessment & Plan (1) COVID-19: COVID isolation precautions. Sepsis treated and resolved, due to COVID 19 pneumonia. - Started dexamethasone 6 mg PO daily on 09/14 for 10 days (End date: 09/23) - Encourage self proning but he cannot do this - Patient continues to require high flow oxygen, down a little today at 35L and 80 % FIO2. -Appreciate input from [employer]. -Now transferred to ICU setting but might be able to be changed to PCU tomorrow if he remains stable -procal was order and is negative. -Antibiotics stopped (2) Acute kidney failure: Unknown baseline. Requested notes from his primary care provider regarding prior labs, medical conditions, medications, and past medical history. Suspect prerenal due to hypotension on admission in setting of antihypertensive use. - Hold lisinopril and hydrochlorothiazide - Creatinine is normal. - will hold IVF to keep him dry to help with his lungs. - will continue to monitor. consider Lasix PRN for negative fluid balance (3) Diabetes: A1c was 6.5% this admission. - Sugars higher with steroids. BS are 121-210 over last 24 hours. - Will monitor. (4) Diarrhea: Suspect secondary to COVID-19 as above. C. diff negative on 09/14. - Imodium PRN -no further bleeding, will closely monitor, will hold heparin sub q for now. (5) Acute hypotension: Secondary to anti-hypertensives in the setting of diarrhea and dehydration. - Management as above for IZABELLA (6) Hypertension: - As above (7) Hypercholesterolemia: - Continue ezetimibe and fenofibrate. Unclear why the patient is not on a statin. (8) Peripheral artery disease: Exact details of this unclear. Patient mentions possible stent. - Continue aspirin 81 mg p.o. daily, clopidogrel 75 mg p.o. daily, ezetimibe 10 mg p.o. daily, & fenofibrate 145 mg p.o. daily (9) DVT prophylaxis: holding Heparin 7500 units SQ Q12h continue SCD Knee updated family Admission and Anticipated Discharge Date Admission Date: September 13, 2020 Subjective patient continues to be on high flow, he is on 35L and 80% FiO2 no distress, no chest pain, has a dry cough he is eating okay, no nausea/vomiting, no diarrhea he cannot lay prone encouraged him to stay strong, he says he has been sick for two weeks now Review of Systems Review of Systems: All systems reviewed & are unremarkable except as noted in Subjective Constitutional: + weakness; no fever and no fatigue Respiratory: + cough, + dyspnea and + dyspnea on exertion; no sputum production Cardiovascular: no chest pain, no palpitations, no syncope and no edema Gastrointestinal: no abdominal pain, no nausea, no vomiting, no constipation and no diarrhea/loose stools Physical Exam Constitutional: WD/WN, vitals as above + ill appearing and + frail appearing; no acute distress Neck: trachea midline, no thyromegaly Respiratory: + cough and + tachypneic; no respiratory distress and no labored breathing Auscultation: lungs clear to auscultation bilaterally Cardiovascular: RRR, no murmur, no edema Gastrointestinal (Abdomen): normal bowel sounds, soft, nontender, no hepatosplenomegaly Musculoskeletal: no cyanosis or clubbing, extremities motor strength 5/5 Skin: no rashes, warm and dry Neurologic: patellar DTR's 2+ bilat, sensation intact and PERRL, EOMI, accommodation nl, no face palsy, no dysarthria Psychiatric: A+Ox3, euthymic affect Lymphatic: no cervical or axillary lymphadenopathy Results & Data Results & Data ([facility]) Vital Signs (Past 12 Hours) Vital Signs Temp Pulse Pulse Resp BP BP Pulse Ox 09/21/20 23:11 83 24 96 09/21/20 22:52 86 21 106/60 90 09/21/20 22:48 77 20 129/75 90 09/21/20 21:52 95 H 129/75 91 09/21/20 20:52 81 21 124/73 92 09/21/20 19:58 90 18 126/80 92 09/21/20 19:52 36.9 C 93 H 20 145/82 H 91 09/21/20 19:12 98 H 22 89 L 09/21/20 18:52 98 H 21 123/79 91 09/21/20 18:00 106 H 90 09/21/20 17:30 36.8 C 100 H 99 H 20 156/71 H 156/71 H 89 L 09/21/20 17:00 101 H 92 09/21/20 16:00 84 94 09/21/20 15:45 94 H 23 92 09/21/20 15:00 103 H 90 09/21/20 14:21 101 H 144/84 H 92 09/21/20 14:00 92 09/21/20 13:51 99 H 149/76 H 89 L 09/21/20 13:21 101 H 157/90 H 91 09/21/20 13:00 88 94 09/21/20 12:51 93 H 141/84 H 91 09/21/20 12:21 107 H 175/97 H 92 09/21/20 12:00 86 92 09/21/20 11:51 90 144/93 H 89 L Laboratory Results Laboratory Results - last 24 hr 09/21/20 09/21/20 09/21/20 06:24 06:24 07:55 WBC 9.36 RBC 4.04 L Hgb 13.5 L Hct 38.8 L MCV 96.0 MCH 33.4 MCHC 34.8 RDW Std Deviation 49.6 H RDW Coeff of Lexy 14.1 Plt Count 253 MPV 10.1 Immature Gran % (Auto) 2.0 Neut % (Auto) 81.5 Lymph % (Auto) 11.6 Hitchcock % (Auto) 4.5 Eos % (Auto) 0.3 Baso % (Auto) 0.1 Neut # (Auto) 7.62 H Lymph # (Auto) 1.09 L Hitchcock # (Auto) 0.42 Eos # (Auto) 0.03 Baso # (Auto) 0.01 Immature Gran # (Auto) 0.19 H D-Dimer Sodium 139 Potassium 4.7 Chloride 107 Carbon Dioxide 23 Anion Gap 9.0 BUN 63 H Creatinine 1.31 Est Cr Clr Drug Dosing 51.6 Est GFR ( Amer) 61.3 Est GFR (Non-Af Amer) 52.9 BUN/Creatinine Ratio 47.9 H Glucose 120 H POC Glucose 113 H Calcium 9.8 Phosphorus 2.5 Magnesium 2.3 C-Reactive Protein 09/21/20 09/21/20 09/21/20 11:20 11:20 11:50 WBC RBC Hgb Hct MCV MCH MCHC RDW Std Deviation RDW Coeff of Lexy Plt Count MPV Immature Gran % (Auto) Neut % (Auto) Lymph % (Auto) Hitchcock % (Auto) Eos % (Auto) Baso % (Auto) Neut # (Auto) Lymph # (Auto) Hitchcock # (Auto) Eos # (Auto) Baso # (Auto) Immature Gran # (Auto) D-Dimer 2920 H* Sodium Potassium Chloride Carbon Dioxide Anion Gap BUN Creatinine Est Cr Clr Drug Dosing Est GFR ( Amer) Est GFR (Non-Af Amer) BUN/Creatinine Ratio Glucose POC Glucose 162 H Calcium Phosphorus Magnesium C-Reactive Protein 6.21 H 09/21/20 09/21/20 17:27 20:55 WBC RBC Hgb Hct MCV MCH MCHC RDW Std Deviation RDW Coeff of Lexy Plt Count MPV Immature Gran % (Auto) Neut % (Auto) Lymph % (Auto) Hitchcock % (Auto) Eos % (Auto) Baso % (Auto) Neut # (Auto) Lymph # (Auto) Hitchcock # (Auto) Eos # (Auto) Baso # (Auto) Immature Gran # (Auto) D-Dimer Sodium Potassium Chloride Carbon Dioxide Anion Gap BUN Creatinine Est Cr Clr Drug Dosing Est GFR ( Amer) Est GFR (Non-Af Amer) BUN/Creatinine Ratio Glucose POC Glucose 193 H 194 H Calcium Phosphorus Magnesium C-Reactive Protein Medications Administered Current Inpatient Medications Acetaminophen (Acetaminophen 325 Mg Tab) 650 mg PO Q4H PRN PRN Reason: Pain or Fever Stop: 10/13/20 18:12 Last Admin: 09/21/20 21:05 Dose: 650 mg Documented by: Al Hydrox/Mg Hydrox/Simethicone (Aluminum/Magnesium Susp 30 Ml Udc) 15 ml PO Q4H PRN PRN Reason: Dyspepsia Stop: 10/13/20 18:12 Aspirin (Aspirin 81 Mg Ectab) 81 mg PO DAILY [facility] Stop: 10/14/20 08:59 Last Admin: 09/21/20 08:02 Dose: 81 mg Documented by: Budesonide (Budesonide 0.5 Mg/2 Ml Vial (Pulmicort)) 0.5 mg NEB BIDR [facility] Stop: 10/21/20 18:59 Last Admin: 09/21/20 19:12 Dose: 0.5 mg Documented by: Clopidogrel Bisulfate (Clopidogrel Bisulfate 75 Mg Tab) 75 mg PO DAILY [facility] Stop: 10/14/20 08:59 Last Admin: 09/21/20 08:03 Dose: 75 mg Documented by: Dexamethasone (Dexamethasone 4 Mg Tab) 6 mg PO DAILY [facility] Stop: 09/23/20 09:01 Last Admin: 09/21/20 08:01 Dose: 6 mg Documented by: Dextrose (Dextrose 50% 50 Ml Syringe) 25 - 50 ml IV UD PRN; Protocol PRN Reason: Hypoglycemia Protocol Stop: 10/13/20 20:36 Ezetimibe (Ezetimibe 10 Mg Tablet) 10 mg PO DAILY [facility] Stop: 10/14/20 08:59 Last Admin: 09/21/20 08:03 Dose: 10 mg Documented by: Fenofibrate (Fenofibrate Nanocrystallized 145 Mg Tablet) 145 mg PO DAILY [facility] Stop: 10/14/20 08:59 Last Admin: 09/21/20 08:03 Dose: 145 mg Documented by: Glucagon (Glucagon For Inj 1 Mg Vial) 1 mg SQ UD PRN; Protocol PRN Reason: Hypoglycemia Protocol Stop: 10/13/20 20:36 Glucose (Glucose 10 Tabs/Tube) 4 - 8 tabs PO UD PRN; Protocol PRN Reason: Hypoglycemia Protocol Stop: 10/13/20 20:36 Glucose (Glucose 40% Gel 15 Gm Tube) 15 - 30 gm PO UD PRN; Protocol PRN Reason: Hypoglycemia Protocol Stop: 10/13/20 20:36 Heparin Sodium (Porcine) (Heparin Sod 5,000 Unit/0.5 Ml Vial) 5,000 units SQ Q12 [facility] Stop: 10/19/20 20:59 Insulin Aspart (Insulin Aspart 100 Units/Ml 3 Ml Pen) 0 units SC ACHS [facility] Stop: 10/15/20 16:29 Last Admin: 09/21/20 20:57 Dose: 3 units Documented by: Loperamide HCl (Loperamide Hcl 2 Mg Cap) 2 mg PO QID PRN PRN Reason: Diarrhea Stop: 10/14/20 16:44 Last Admin: 09/16/20 07:40 Dose: 2 mg Documented by: Miscellaneous (Carbohydrates For Hypoglycemia ) 15 - 30 gm PO UD PRN PRN Reason: Hypoglycemia Protocol Stop: 10/13/20 20:36 Ondansetron HCl (Ondansetron Inj 2 Mg/Ml 2 Ml Vial) 4 mg IV Q4H PRN PRN Reason: Nausea Stop: 10/13/20 18:12 Trazodone HCl (Trazodone Hcl 100 Mg Tab) 100 mg PO HS [facility] Stop: 10/13/20 20:59 Last Admin: 09/21/20 20:58 Dose: 100 mg Documented by: PG Care Time/CCT Total # of Minutes Spent Total Time Spent with Patient: Total time spent is greater than 50% in coordination of care (as documented) at patient's floor/unit and/or counseling patient: Coding Level of Care Code 20056 Subseq Hosp Care Lvl 2 Diagnoses COVID-19 U07.1 Acute kidney failure N17.9 Acute renal failure type: unspecified Diabetes E11.9 Diarrhea A09 Diarrhea type: infectious Acute hypotension I95.9 Hypertension I10 Hypercholesterolemia E78.00 Peripheral artery disease I73.9 DVT prophylaxis Z29.9 (1) Acute kidney failure Acute renal failure type: unspecified Qualified Code(s): N17.9 - Acute kidney failure, unspecified (2) Diarrhea Diarrhea type: infectious Qualified Code(s): A09 - Infectious gastroenteritis and colitis, unspecified
[2020-09-22 06:55] LABS: Basophils # (auto) 0.02 K/uL (0-0.2); Basophils % (auto) 0.2 %; Eosinophils # (auto) 0.11 K/uL (0-0.5); Eosinophils % (auto) 1.1 %; Hematocrit (blood only) 40.4 % (42-52); Hemoglobin 13.7 g/dL (14.0-18.0); Immature Granulocytes # (auto) 0.36 K/uL (0.00-0.02); Immature Granulocytes % (auto) 3.6 %; Lymphocytes # (auto) 0.93 K/uL (1.2-3.4); Lymphocytes % (auto) 9.4 %; Mean Corpuscular Hemoglobin 32.7 pg (25-34); Mean Corpuscular Hgb Conc 33.9 g/dL (32-36); Mean Corpuscular Volume 96.4 fL (80-100); Mean Platelet Volume 10.4 fL (7.4-10.4); Monocytes # (auto) 0.33 K/uL (0.11-0.59); Monocytes % (auto) 3.3 %; Neutrophils # (auto) 8.17 K/uL (1.4-6.5); Neutrophils % (auto) 82.4 %; Platelet Count 259 K/uL (130-400); RDW Coefficient of Variation 14.2 % (11.5-14.5); RDW Standard Deviation 50.6 fL (36.4-46.3); Red Blood Count 4.19 M/uL (4.7-6.1); White Blood Count 9.92 K/uL (4.8-10.8)
[2020-09-22 07:21] LABS: Calcium 9.6 mg/dl (8.5-10.1); Creatinine Clr Calc Pharmacy 53.4 ml/min; Est GFR (African American) 66.8; Est GFR (Non-African American) 57.6; Magnesium 2.6 mg/dl (1.8-2.4)
[2020-09-22 07:22] LABS: Phosphorus 3.3 mg/dl (2.5-4.9)
[2020-09-22] MEDS: ACETAMINOPHEN 325 MG TAB PO PRN ×3 (07:25→19:28)
[2020-09-22] MEDS: BUDESONIDE 0.5 MG/2 ML VIAL (PULMICORT) NEB SCH ×2 (08:00→19:40)
--- NOTE | 2020-09-22 08:15 | XRay Report ---
SINGLE VIEW CHEST CLINICAL HISTORY: Respiratory failure. Covid pneumonia. FINDINGS: 2 AP, portable, semierect chest radiographs are compared to study dated 09/21/2020. The exam ination is degraded by portable technique, patient rotation, and apical lordotic positioning. The hea rt is enlarged noting atherosclerotic calcification of the thoracic aorta. There is multifocal airspa ce consolidation, most confluent at the lung bases. No large pleural effusion or pneumothorax is seen . The skeletal structures are osteopenic. The bony thorax is grossly intact. IMPRESSION: Multifocal airspace consolidation is unchanged as compared to yesterday. ACT 112: Negative or not required by law. Electronically signed by: Ravi Rodrigez M.D. 09/22/2020 8:13 AM
[2020-09-22] MEDS: EZETIMIBE 10 MG TABLET PO SCH (08:40)
[2020-09-22] MEDS: dexAMETHasone 4 MG TAB PO SCH (08:40)
[2020-09-22] MEDS: CLOPIDOGREL BISULFATE 75 MG TAB PO SCH (08:40)
--- NOTE | 2020-09-22 08:44 | Hospitalist Progress Note ---
Date of Service September 22, 2020 Assessment & Plan (1) COVID-19: COVID isolation precautions. Sepsis treated and resolved, due to COVID 19 pneumonia. - Started dexamethasone 6 mg PO daily on 09/14 for 10 days (End date: 09/23) - Encourage self proning but he cannot do this - Patient continues to require high flow oxygen, down a little today at 35L and 75 % FIO2. change to PCU setting today as he is stable -procal was order and is negative. -Antibiotics stopped give Lasix 20mg IV this morning, if he responds well then make it 20mg BID want to keep negative fluid balance for lungs (2) Acute kidney failure: Unknown baseline. Requested notes from his primary care provider regarding prior labs, medical conditions, medications, and past medical history. Suspect prerenal due to hypotension on admission in setting of antihypertensive use. - continue to hold lisinopril and hydrochlorothiazide - Creatinine is normal at 1.22 lasix 20mg IV this morning, monitor response, has a lozano catheter (3) Diabetes: A1c was 6.5% this admission. - continue Novolog SS on dexamethasone monitor for hypoglycemia, no episodes (4) Diarrhea: Suspect secondary to COVID-19 as above. C. diff negative on 09/14. - Imodium PRN -no further bleeding, will closely monitor, will hold heparin sub q for now. (5) Acute hypotension: Secondary to anti-hypertensives in the setting of diarrhea and dehydration. - Management as above for IZABELLA continue to hold lisinopril and HCTZ, BP stable in 120s systolic (6) Hypertension: - As above (7) Hypercholesterolemia: - Continue ezetimibe and fenofibrate. Unclear why the patient is not on a statin. (8) Peripheral artery disease: Exact details of this unclear. Patient mentions possible stent. - Continue aspirin 81 mg p.o. daily, clopidogrel 75 mg p.o. daily, ezetimibe 10 mg p.o. daily, & fenofibrate 145 mg p.o. daily (9) DVT prophylaxis: holding Heparin 7500 units SQ Q12h continue SCD Knee Admission and Anticipated Discharge Date Admission Date: September 13, 2020 Subjective patient doing okay, no distress, down very slightly to 75% FiO2 minimal cough, no dyspnea, ate over 50% of breakfast, no recent BM, making urine via lozano reviewed medications, not on Lasix, will give him a challenge to try to keep negative fluid balance, help oxygenation reviewed labs, K is 5.0, Cr 1.22, BUN 64 no chest pain, no fever/chills, no vomiting, just feels tired, says he did not sleep well Review of Systems Review of Systems: All systems reviewed & are unremarkable except as noted in Subjective Physical Exam Constitutional: WD/WN, vitals as above + frail appearing; no acute distress Neck: trachea midline, no thyromegaly Respiratory: normal respiratory effort and + cough; no respiratory distress and no labored breathing Auscultation: lungs clear to auscultation bilaterally Cardiovascular: RRR, no murmur, no edema Gastrointestinal (Abdomen): normal bowel sounds, soft, nontender, no hepatosplenomegaly Musculoskeletal: no cyanosis or clubbing, extremities motor strength 5/5 Skin: no rashes, warm and dry Neurologic: patellar DTR's 2+ bilat, sensation intact and PERRL, EOMI, accommodation nl, no face palsy, no dysarthria Psychiatric: A+Ox3, euthymic affect Lymphatic: no cervical or axillary lymphadenopathy Results & Data Results & Data ([facility]) Vital Signs (Past 12 Hours) Vital Signs Temp Pulse Pulse Resp BP Pulse Ox 09/22/20 08:01 81 22 92 09/22/20 04:52 79 22 125/70 95 09/22/20 03:52 71 18 105/67 89 L 09/22/20 03:08 84 22 93 09/22/20 02:52 85 18 140/87 96 09/22/20 01:52 68 18 132/75 97 09/22/20 00:52 68 20 124/87 95 09/22/20 00:00 37.0 C 09/21/20 23:52 77 18 126/77 95 09/21/20 23:11 83 24 96 09/21/20 23:09 86 140/90 93 09/21/20 22:52 86 21 106/60 90 09/21/20 22:48 77 20 129/75 90 09/21/20 21:52 95 H 129/75 91 09/21/20 20:52 81 21 124/73 92 Laboratory Results Laboratory Results - last 24 hr 09/21/20 09/21/20 09/21/20 11:20 11:20 11:50 WBC RBC Hgb Hct MCV MCH MCHC RDW Std Deviation RDW Coeff of Lexy Plt Count MPV Immature Gran % (Auto) Neut % (Auto) Lymph % (Auto) Hendricks % (Auto) Eos % (Auto) Baso % (Auto) Neut # (Auto) Lymph # (Auto) Hendricks # (Auto) Eos # (Auto) Baso # (Auto) Immature Gran # (Auto) D-Dimer 2920 H* Sodium Potassium Chloride Carbon Dioxide Anion Gap BUN Creatinine Est Cr Clr Drug Dosing Est GFR ( Amer) Est GFR (Non-Af Amer) BUN/Creatinine Ratio Glucose POC Glucose 162 H Calcium Phosphorus Magnesium C-Reactive Protein 6.21 H 09/21/20 09/21/20 09/22/20 17:27 20:55 06:15 WBC 9.92 RBC 4.19 L Hgb 13.7 L Hct 40.4 L MCV 96.4 MCH 32.7 MCHC 33.9 RDW Std Deviation 50.6 H RDW Coeff of Lexy 14.2 Plt Count 259 MPV 10.4 Immature Gran % (Auto) 3.6 Neut % (Auto) 82.4 Lymph % (Auto) 9.4 Hendricks % (Auto) 3.3 Eos % (Auto) 1.1 Baso % (Auto) 0.2 Neut # (Auto) 8.17 H Lymph # (Auto) 0.93 L Hendricks # (Auto) 0.33 Eos # (Auto) 0.11 Baso # (Auto) 0.02 Immature Gran # (Auto) 0.36 H D-Dimer Sodium Potassium Chloride Carbon Dioxide Anion Gap BUN Creatinine Est Cr Clr Drug Dosing Est GFR ( Amer) Est GFR (Non-Af Amer) BUN/Creatinine Ratio Glucose POC Glucose 193 H 194 H Calcium Phosphorus Magnesium C-Reactive Protein 09/22/20 09/22/20 06:15 08:18 WBC RBC Hgb Hct MCV MCH MCHC RDW Std Deviation RDW Coeff of Lexy Plt Count MPV Immature Gran % (Auto) Neut % (Auto) Lymph % (Auto) Hendricks % (Auto) Eos % (Auto) Baso % (Auto) Neut # (Auto) Lymph # (Auto) Hendricks # (Auto) Eos # (Auto) Baso # (Auto) Immature Gran # (Auto) D-Dimer Sodium 141 Potassium 5.0 Chloride 109 H Carbon Dioxide 26 Anion Gap 6.0 BUN 64 H Creatinine 1.22 Est Cr Clr Drug Dosing 53.4 Est GFR ( Amer) 66.8 Est GFR (Non-Af Amer) 57.6 BUN/Creatinine Ratio 52.0 H Glucose 109 H POC Glucose 113 H Calcium 9.6 Phosphorus 3.3 Magnesium 2.6 H C-Reactive Protein Medications Administered Current Inpatient Medications Acetaminophen (Acetaminophen 325 Mg Tab) 650 mg PO Q4H PRN PRN Reason: Pain or Fever Stop: 10/13/20 18:12 Last Admin: 09/22/20 07:25 Dose: 650 mg Documented by: Al Hydrox/Mg Hydrox/Simethicone (Aluminum/Magnesium Susp 30 Ml Udc) 15 ml PO Q4H PRN PRN Reason: Dyspepsia Stop: 10/13/20 18:12 Aspirin (Aspirin 81 Mg Ectab) 81 mg PO DAILY [facility] Stop: 10/14/20 08:59 Last Admin: 09/21/20 08:02 Dose: 81 mg Documented by: Budesonide (Budesonide 0.5 Mg/2 Ml Vial (Pulmicort)) 0.5 mg NEB BIDR [facility] Stop: 10/21/20 18:59 Last Admin: 09/22/20 08:00 Dose: 0.5 mg Documented by: Clopidogrel Bisulfate (Clopidogrel Bisulfate 75 Mg Tab) 75 mg PO DAILY [facility] Stop: 10/14/20 08:59 Last Admin: 09/22/20 08:40 Dose: 75 mg Documented by: Dexamethasone (Dexamethasone 4 Mg Tab) 6 mg PO DAILY [facility] Stop: 09/23/20 09:01 Last Admin: 09/22/20 08:40 Dose: 6 mg Documented by: Dextrose (Dextrose 50% 50 Ml Syringe) 25 - 50 ml IV UD PRN; Protocol PRN Reason: Hypoglycemia Protocol Stop: 10/13/20 20:36 Ezetimibe (Ezetimibe 10 Mg Tablet) 10 mg PO DAILY [facility] Stop: 10/14/20 08:59 Last Admin: 09/22/20 08:40 Dose: 10 mg Documented by: Fenofibrate (Fenofibrate Nanocrystallized 145 Mg Tablet) 145 mg PO DAILY [facility] Stop: 10/14/20 08:59 Last Admin: 09/21/20 08:03 Dose: 145 mg Documented by: Glucagon (Glucagon For Inj 1 Mg Vial) 1 mg SQ UD PRN; Protocol PRN Reason: Hypoglycemia Protocol Stop: 10/13/20 20:36 Glucose (Glucose 10 Tabs/Tube) 4 - 8 tabs PO UD PRN; Protocol PRN Reason: Hypoglycemia Protocol Stop: 10/13/20 20:36 Glucose (Glucose 40% Gel 15 Gm Tube) 15 - 30 gm PO UD PRN; Protocol PRN Reason: Hypoglycemia Protocol Stop: 10/13/20 20:36 Heparin Sodium (Porcine) (Heparin Sod 5,000 Unit/0.5 Ml Vial) 5,000 units SQ Q12 [facility] Stop: 10/19/20 20:59 Furosemide 20 mg/ Syringe 2 mls @ 4 mls/min IV ONE ONE Stop: 09/22/20 08:40 Insulin Aspart (Insulin Aspart 100 Units/Ml 3 Ml Pen) 0 units SC ACHS [facility] Stop: 10/15/20 16:29 Last Admin: 09/21/20 20:57 Dose: 3 units Documented by: Loperamide HCl (Loperamide Hcl 2 Mg Cap) 2 mg PO QID PRN PRN Reason: Diarrhea Stop: 10/14/20 16:44 Last Admin: 09/16/20 07:40 Dose: 2 mg Documented by: Miscellaneous (Carbohydrates For Hypoglycemia ) 15 - 30 gm PO UD PRN PRN Reason: Hypoglycemia Protocol Stop: 10/13/20 20:36 Ondansetron HCl (Ondansetron Inj 2 Mg/Ml 2 Ml Vial) 4 mg IV Q4H PRN PRN Reason: Nausea Stop: 10/13/20 18:12 Trazodone HCl (Trazodone Hcl 100 Mg Tab) 100 mg PO HS [facility] Stop: 10/13/20 20:59 Last Admin: 09/21/20 20:58 Dose: 100 mg Documented by: PG Care Time/CCT Total # of Minutes Spent Total Time Spent with Patient: Total time spent is greater than 50% in coordination of care (as documented) at patient's floor/unit and/or counseling patient: Coding Level of Care Code 82543 Subseq Hosp Care Lvl 3 Diagnoses COVID-19 U07.1 Acute kidney failure N17.9 Acute renal failure type: unspecified Diabetes E11.9 Diarrhea A09 Diarrhea type: infectious Acute hypotension I95.9 Hypertension I10 Hypercholesterolemia E78.00 Peripheral artery disease I73.9 DVT prophylaxis Z29.9 (1) Acute kidney failure Acute renal failure type: unspecified Qualified Code(s): N17.9 - Acute kidney failure, unspecified (2) Diarrhea Diarrhea type: infectious Qualified Code(s): A09 - Infectious gastroenteritis and colitis, unspecified
[2020-09-22] MEDS: INSULIN ASPART 100 UNITS/ML 3 ML PEN SC SCH ×4 (08:51→21:12)
[2020-09-22] MEDS ORDERED: FUROSEMIDE 20 MG in SYRINGE 0 ML IV ONE (09:00)
[2020-09-22] MEDS: HEPARIN SOD 5,000 UNIT/0.5 ML VIAL SQ SCH ×2 (10:31→19:29)
[2020-09-22] MEDS: ASPIRIN 81 MG ECTAB PO SCH (10:37)
[2020-09-22] MEDS: traZODone HCL 100 MG TAB PO SCH (19:29)
[2020-09-23 07:12] LABS: Basophils # (auto) 0.02 K/uL (0-0.2); Basophils % (auto) 0.2 %; Eosinophils # (auto) 0.12 K/uL (0-0.5); Eosinophils % (auto) 1.1 %; Hematocrit (blood only) 39.7 % (42-52); Hemoglobin 13.6 g/dL (14.0-18.0); Immature Granulocytes # (auto) 0.46 K/uL (0.00-0.02); Immature Granulocytes % (auto) 4.2 %; Lymphocytes # (auto) 1.11 K/uL (1.2-3.4); Lymphocytes % (auto) 10.2 %; Mean Corpuscular Hemoglobin 32.9 pg (25-34); Mean Corpuscular Hgb Conc 34.3 g/dL (32-36); Mean Corpuscular Volume 95.9 fL (80-100); Mean Platelet Volume 10.6 fL (7.4-10.4); Monocytes # (auto) 0.52 K/uL (0.11-0.59); Monocytes % (auto) 4.8 %; Neutrophils # (auto) 8.66 K/uL (1.4-6.5); Neutrophils % (auto) 79.5 %; Platelet Count 267 K/uL (130-400); RDW Coefficient of Variation 14.1 % (11.5-14.5); RDW Standard Deviation 49.7 fL (36.4-46.3); Red Blood Count 4.14 M/uL (4.7-6.1); White Blood Count 10.89 K/uL (4.8-10.8)
[2020-09-23] MEDS: BUDESONIDE 0.5 MG/2 ML VIAL (PULMICORT) NEB SCH ×2 (07:23→19:22)
[2020-09-23 07:45] LABS: BUN Creatinine Ratio 52.6 (10-20); Calcium 9.5 mg/dl (8.5-10.1); Creatinine Clr Calc Pharmacy 50.1 ml/min; Est GFR (African American) 61.9; Est GFR (Non-African American) 53.4; Magnesium 2.6 mg/dl (1.8-2.4); Phosphorus 3.5 mg/dl (2.5-4.9); Potassium 4.6 mmol/L (3.5-5.1)
[2020-09-23] MEDS: EZETIMIBE 10 MG TABLET PO SCH (09:29)
[2020-09-23] MEDS: ASPIRIN 81 MG ECTAB PO SCH (09:29)
[2020-09-23] MEDS: CLOPIDOGREL BISULFATE 75 MG TAB PO SCH (09:29)
[2020-09-23] MEDS: dexAMETHasone 4 MG TAB PO SCH (09:29)
[2020-09-23] MEDS: HEPARIN SOD 5,000 UNIT/0.5 ML VIAL SQ SCH ×2 (09:30→21:17)
[2020-09-23] MEDS: ACETAMINOPHEN 325 MG TAB PO PRN ×3 (09:32→21:21)
[2020-09-23] MEDS: INSULIN ASPART 100 UNITS/ML 3 ML PEN SC SCH ×4 (09:46→21:23)
--- NOTE | 2020-09-23 13:07 | Hospitalist Progress Note ---
Date of Service September 23, 2020 Assessment & Plan (1) COVID-19: COVID isolation precautions. Sepsis treated and resolved, due to COVID 19 pneumonia. - completed 10 days of dexamethasone 6mg daily since he is still on high flow, will treat for late ARDS with dexamethasone 20mg IV daily x 5 days then 10mg IV daily x 5 days - Encourage self proning but he cannot do this - Patient continues to require high flow oxygen, stable today at 35L and 65 % FIO2. -procal was order and is negative. -Antibiotics stopped hold on further Lasix, Cr is 1.3, might give again tomorrow (2) Paroxysmal SVT (supraventricular tachycardia): happened on 09/23 at 1245, only lasted for 4 minutes, rates 150's will start Lopressor 12.5mg BID and monitor for any recurrence no symptoms hold on anticoagulation since it was only one episode (3) Acute kidney failure: Unknown baseline. Requested notes from his primary care provider regarding prior labs, medical conditions, medications, and past medical history. Suspect prerenal due to hypotension on admission in setting of antihypertensive use. - continue to hold lisinopril and hydrochlorothiazide - Creatinine is normal at 1.3 after Lasix on 09/22 (4) Diabetes: A1c was 6.5% this admission. - continue Novolog SS on dexamethasone monitor for hypoglycemia, no episodes (5) Diarrhea: Suspect secondary to COVID-19 as above. C. diff negative on 09/14. - Imodium PRN -no further bleeding, will closely monitor, resume Heparin SC (6) Acute hypotension: Secondary to anti-hypertensives in the setting of diarrhea and dehydration. - Management as above for IZABELLA continue to hold lisinopril and HCTZ, BP stable in 100s systolic start low dose Lopressor 12.5mg BID for SVT (7) Hypertension: - As above (8) Hypercholesterolemia: - Continue ezetimibe and fenofibrate. Unclear why the patient is not on a statin. (9) Peripheral artery disease: Exact details of this unclear. Patient mentions possible stent. - Continue aspirin 81 mg p.o. daily, clopidogrel 75 mg p.o. daily, ezetimibe 10 mg p.o. daily, & fenofibrate 145 mg p.o. daily (10) DVT prophylaxis: holding Heparin 7500 units SQ Q12h continue SCD Knee Admission and Anticipated Discharge Date Admission Date: September 13, 2020 Subjective patient doing about the same, he is on 35L and 65% FiO2 Cr is 1.3 after Lasix yesterday, hold on further dosing he had a 4.5 minute run of SVT, appeared to be atrial fibrillation, around 1245, no symptoms of chest pain or palpitations he is eating okay, no fever/chills, no diarrhea Review of Systems Review of Systems: All systems reviewed & are unremarkable except as noted in Subjective Constitutional: + weakness; no fever and no fatigue Respiratory: + dyspnea and + dyspnea on exertion Cardiovascular: no chest pain, no palpitations and no edema Gastrointestinal: no abdominal pain, no nausea, no vomiting, no constipation and no diarrhea/loose stools Physical Exam Constitutional: WD/WN, vitals as above + frail appearing; no acute distress Neck: trachea midline, no thyromegaly Respiratory: normal respiratory effort and + cough; no respiratory distress and no labored breathing Auscultation: lungs clear to auscultation bilaterally Cardiovascular: RRR, no murmur, no edema Gastrointestinal (Abdomen): normal bowel sounds, soft, nontender, no hepatosplenomegaly Musculoskeletal: no cyanosis or clubbing, extremities motor strength 5/5 Skin: no rashes, warm and dry Neurologic: patellar DTR's 2+ bilat, sensation intact and PERRL, EOMI, accommodation nl, no face palsy, no dysarthria Psychiatric: A+Ox3, euthymic affect Lymphatic: no cervical or axillary lymphadenopathy Results & Data Results & Data ([facility]) Vital Signs (Past 12 Hours) Vital Signs Temp Pulse Pulse Resp BP BP Pulse Ox 09/23/20 11:20 36.6 C 95 H 19 100/60 93 09/23/20 11:04 100 H 22 90 09/23/20 07:42 36.8 C 82 18 117/78 90 09/23/20 07:30 60 09/23/20 07:24 87 18 90 09/23/20 04:52 86 22 107/68 92 09/23/20 04:25 36.7 C 93 H 20 105/67 91 09/23/20 03:52 71 16 105/67 91 09/23/20 03:14 69 20 92 09/23/20 02:52 75 20 118/74 92 09/23/20 01:52 82 129/77 90 Laboratory Results Laboratory Results - last 24 hr 09/22/20 09/22/20 09/23/20 16:24 20:35 06:26 WBC 10.89 H RBC 4.14 L Hgb 13.6 L Hct 39.7 L MCV 95.9 MCH 32.9 MCHC 34.3 RDW Std Deviation 49.7 H RDW Coeff of Lexy 14.1 Plt Count 267 MPV 10.6 H Immature Gran % (Auto) 4.2 Neut % (Auto) 79.5 Lymph % (Auto) 10.2 [place] % (Auto) 4.8 Eos % (Auto) 1.1 Baso % (Auto) 0.2 Neut # (Auto) 8.66 H Lymph # (Auto) 1.11 L [place] # (Auto) 0.52 Eos # (Auto) 0.12 Baso # (Auto) 0.02 Immature Gran # (Auto) 0.46 H Sodium Potassium Chloride Carbon Dioxide Anion Gap BUN Creatinine Est Cr Clr Drug Dosing Est GFR ( Amer) Est GFR (Non-Af Amer) BUN/Creatinine Ratio Glucose POC Glucose 209 H 265 H Calcium Phosphorus Magnesium 09/23/20 09/23/20 09/23/20 06:26 08:17 12:11 WBC RBC Hgb Hct MCV MCH MCHC RDW Std Deviation RDW Coeff of Lexy Plt Count MPV Immature Gran % (Auto) Neut % (Auto) Lymph % (Auto) [place] % (Auto) Eos % (Auto) Baso % (Auto) Neut # (Auto) Lymph # (Auto) [place] # (Auto) Eos # (Auto) Baso # (Auto) Immature Gran # (Auto) Sodium 140 Potassium 4.6 Chloride 107 Carbon Dioxide 28 Anion Gap 5.0 BUN 68 H Creatinine 1.30 Est Cr Clr Drug Dosing 50.1 Est GFR ( Amer) 61.9 Est GFR (Non-Af Amer) 53.4 BUN/Creatinine Ratio 52.6 H Glucose 124 H POC Glucose 134 H 188 H Calcium 9.5 Phosphorus 3.5 Magnesium 2.6 H Medications Administered Current Inpatient Medications Acetaminophen (Acetaminophen 325 Mg Tab) 650 mg PO Q4H PRN PRN Reason: Pain or Fever Stop: 10/13/20 18:12 Last Admin: 09/23/20 09:32 Dose: 650 mg Documented by: Al Hydrox/Mg Hydrox/Simethicone (Aluminum/Magnesium Susp 30 Ml Udc) 15 ml PO Q4H PRN PRN Reason: Dyspepsia Stop: 10/13/20 18:12 Aspirin (Aspirin 81 Mg Ectab) 81 mg PO DAILY [facility]EL Stop: 10/14/20 08:59 Last Admin: 09/23/20 09:29 Dose: 81 mg Documented by: Budesonide (Budesonide 0.5 Mg/2 Ml Vial (Pulmicort)) 0.5 mg NEB BIDR URIEL Stop: 10/21/20 18:59 Last Admin: 09/23/20 07:23 Dose: 0.5 mg Documented by: Clopidogrel Bisulfate (Clopidogrel Bisulfate 75 Mg Tab) 75 mg PO DAILY [facility]EL Stop: 10/14/20 08:59 Last Admin: 09/23/20 09:29 Dose: 75 mg Documented by: Dextrose (Dextrose 50% 50 Ml Syringe) 25 - 50 ml IV UD PRN; Protocol PRN Reason: Hypoglycemia Protocol Stop: 10/13/20 20:36 Ezetimibe (Ezetimibe 10 Mg Tablet) 10 mg PO DAILY [facility] Stop: 10/14/20 08:59 Last Admin: 09/23/20 09:29 Dose: 10 mg Documented by: Fenofibrate (Fenofibrate Nanocrystallized 145 Mg Tablet) 145 mg PO DAILY [facility] Stop: 10/14/20 08:59 Last Admin: 09/21/20 08:03 Dose: 145 mg Documented by: Glucagon (Glucagon For Inj 1 Mg Vial) 1 mg SQ UD PRN; Protocol PRN Reason: Hypoglycemia Protocol Stop: 10/13/20 20:36 Glucose (Glucose 10 Tabs/Tube) 4 - 8 tabs PO UD PRN; Protocol PRN Reason: Hypoglycemia Protocol Stop: 10/13/20 20:36 Glucose (Glucose 40% Gel 15 Gm Tube) 15 - 30 gm PO UD PRN; Protocol PRN Reason: Hypoglycemia Protocol Stop: 10/13/20 20:36 Heparin Sodium (Porcine) (Heparin Sod 5,000 Unit/0.5 Ml Vial) 5,000 units SQ Q12 [facility]EL Stop: 10/19/20 20:59 Last Admin: 09/23/20 09:30 Dose: 5,000 units Documented by: Insulin Aspart (Insulin Aspart 100 Units/Ml 3 Ml Pen) 0 units SC ACHS URIEL Stop: 10/15/20 16:29 Last Admin: 09/23/20 12:20 Dose: 8 units Documented by: Loperamide HCl (Loperamide Hcl 2 Mg Cap) 2 mg PO QID PRN PRN Reason: Diarrhea Stop: 10/14/20 16:44 Last Admin: 09/16/20 07:40 Dose: 2 mg Documented by: Metoprolol Tartrate (Metoprolol Tartrate 25 Mg Tab) 12.5 mg PO BID [facility]EL Stop: 10/23/20 12:59 Miscellaneous (Carbohydrates For Hypoglycemia ) 15 - 30 gm PO UD PRN PRN Reason: Hypoglycemia Protocol Stop: 10/13/20 20:36 Ondansetron HCl (Ondansetron Inj 2 Mg/Ml 2 Ml Vial) 4 mg IV Q4H PRN PRN Reason: Nausea Stop: 10/13/20 18:12 Trazodone HCl (Trazodone Hcl 100 Mg Tab) 100 mg PO HS URIEL Stop: 10/13/20 20:59 Last Admin: 09/22/20 19:29 Dose: 100 mg Documented by: PG Care Time/CCT Total # of Minutes Spent Total Time Spent with Patient: Total time spent is greater than 50% in coordination of care (as documented) at patient's floor/unit and/or counseling patient: Coding Level of Care Code 48755 Subseq Hosp Care Lvl 2 Diagnoses COVID-19 U07.1 Paroxysmal SVT (supraventricular tachycardia) I47.1 Acute kidney failure N17.9 Acute renal failure type: unspecified Diabetes E11.9 Diarrhea A09 Diarrhea type: infectious Acute hypotension I95.9 Hypertension I10 Hypercholesterolemia E78.00 Peripheral artery disease I73.9 DVT prophylaxis Z29.9 (1) Acute kidney failure Acute renal failure type: unspecified Qualified Code(s): N17.9 - Acute kidney failure, unspecified (2) Diarrhea Diarrhea type: infectious Qualified Code(s): A09 - Infectious gastroenteritis and colitis, unspecified
[2020-09-23] MEDS ORDERED: dexAMETHasone 10 MG in SYRINGE 0 ML IV ONE (13:30)
[2020-09-23] MEDS: METOPROLOL TARTRATE 25 MG TAB PO SCH ×2 (14:34→21:17)
[2020-09-23] MEDS: traZODone HCL 100 MG TAB PO SCH (21:17)
[2020-09-24] MEDS: ACETAMINOPHEN 325 MG TAB PO PRN ×3 (03:09→19:43)
[2020-09-24 06:42] LABS: Basophils # (auto) 0.01 K/uL (0-0.2); Basophils % (auto) 0.1 %; Hematocrit (blood only) 38.9 % (42-52); Hemoglobin 13.1 g/dL (14.0-18.0); Immature Granulocytes # (auto) 0.41 K/uL (0.00-0.02); Immature Granulocytes % (auto) 3.7 %; Lymphocytes # (auto) 1.28 K/uL (1.2-3.4); Lymphocytes % (auto) 11.6 %; Mean Corpuscular Hemoglobin 32.3 pg (25-34); Mean Corpuscular Hgb Conc 33.7 g/dL (32-36); Mean Platelet Volume 10.8 fL (7.4-10.4); Monocytes # (auto) 0.47 K/uL (0.11-0.59); Monocytes % (auto) 4.2 %; Neutrophils # (auto) 8.91 K/uL (1.4-6.5); Neutrophils % (auto) 80.4 %; Platelet Count 246 K/uL (130-400); RDW Coefficient of Variation 13.8 % (11.5-14.5); RDW Standard Deviation 48.3 fL (36.4-46.3); Red Blood Count 4.05 M/uL (4.7-6.1); White Blood Count 11.08 K/uL (4.8-10.8)
[2020-09-24 07:09] LABS: BUN Creatinine Ratio 50.6 (10-20); Creatinine Clr Calc Pharmacy 55.4 ml/min; Est GFR (African American) 68.1; Est GFR (Non-African American) 58.8; Magnesium 2.7 mg/dl (1.8-2.4); Potassium 4.7 mmol/L (3.5-5.1)
[2020-09-24 07:10] LABS: Phosphorus 3.9 mg/dl (2.5-4.9)
[2020-09-24] MEDS: BUDESONIDE 0.5 MG/2 ML VIAL (PULMICORT) NEB SCH ×2 (07:25→20:51)
[2020-09-24] MEDS ORDERED: FUROSEMIDE 20 MG in SYRINGE 0 ML IV ONE (07:45)
[2020-09-24] MEDS: INSULIN ASPART 100 UNITS/ML 3 ML PEN SC SCH ×4 (08:00→20:06)
[2020-09-24] MEDS: dexAMETHasone 20 MG in DEXTROSE 5% 25 ML IV SCH (08:42)
[2020-09-24] MEDS: METOPROLOL TARTRATE 25 MG TAB PO SCH ×2 (08:42→19:44)
[2020-09-24] MEDS: HEPARIN SOD 5,000 UNIT/0.5 ML VIAL SQ SCH ×2 (08:42→19:44)
[2020-09-24] MEDS: CLOPIDOGREL BISULFATE 75 MG TAB PO SCH (08:42)
[2020-09-24] MEDS: ASPIRIN 81 MG ECTAB PO SCH (08:42)
[2020-09-24] MEDS: EZETIMIBE 10 MG TABLET PO SCH (08:42)
[2020-09-24] MEDS ORDERED: DEXAMETHASONE SOD INJ 4 MG/ML VIAL IV SCH (09:00)
--- NOTE | 2020-09-24 15:28 | Hospitalist Progress Note ---
Date of Service September 24, 2020 Assessment & Plan (1) COVID-19: evidence of COVID pneumonia - completed 10 days of dexamethasone 6mg daily since he is still on high flow, will treat for late ARDS with dexamethasone 20mg IV daily x 5 days then 10mg IV daily x 5 days - Encourage self proning but he cannot do this - Patient continues to require high flow oxygen, stable today at 40L and 75 % FIO2. -procal was order and is negative. -Antibiotics stopped continue Lasix 20mg IV BID for negative fluid balance, keep lungs dry check BMP in the morning, if Cr is rising then hold Lasix (2) Paroxysmal SVT (supraventricular tachycardia): happened on 09/23 at 1245, only lasted for 4 minutes, rates 150's will start Lopressor 12.5mg BID, no further issues no symptoms hold on anticoagulation since it was only one episode (3) Acute kidney failure: Unknown baseline. Requested notes from his primary care provider regarding prior labs, medical conditions, medications, and past medical history. Suspect prerenal due to hypotension on admission in setting of antihypertensive use. - continue to hold lisinopril and hydrochlorothiazide - Creatinine is normal at 1.2 Lasix 20mg IV BID (4) Diabetes: A1c was 6.5% this admission. - continue Novolog SS on dexamethasone monitor for hypoglycemia, no episodes (5) Diarrhea: Suspect secondary to COVID-19 as above. C. diff negative on 09/14. - Imodium PRN -no further bleeding, will closely monitor, resume Heparin SC (6) Acute hypotension: Secondary to anti-hypertensives in the setting of diarrhea and dehydration. - Management as above for IZABELLA continue to hold lisinopril and HCTZ, BP stable in 100s systolic start low dose Lopressor 12.5mg BID for SVT (7) Hypertension: - As above (8) Hypercholesterolemia: - Continue ezetimibe and fenofibrate. Unclear why the patient is not on a statin. (9) Peripheral artery disease: Exact details of this unclear. Patient mentions possible stent. - Continue aspirin 81 mg p.o. daily, clopidogrel 75 mg p.o. daily, ezetimibe 10 mg p.o. daily, & fenofibrate 145 mg p.o. daily (10) DVT prophylaxis: holding Heparin 7500 units SQ Q12h continue SCD Knee Admission and Anticipated Discharge Date Admission Date: September 13, 2020 Subjective patient looks about the same as yesterday he is more alert, asking when I am going to send him home, hopes it is today told him he is still on way too much oxygen to consider discharge he says he is eating what he can, admits he cannot eat everything he says he cannot sit in a chair, far too weak he had a BM yesterday reviewed labs, Cr and K are stable, gave Lasix 20mg IV this morning, will give another dose tonight increased the Decadron to 20mg IV today, plan for 4 more days at this dose oxygen requirements are up to 40L and 75% FiO2, worse compared to yesterday but he is not in distress Review of Systems Review of Systems: All systems reviewed & are unremarkable except as noted in Subjective Physical Exam Constitutional: WD/WN, vitals as above + frail appearing; no acute distress Neck: trachea midline, no thyromegaly Respiratory: normal respiratory effort and + cough; no respiratory distress and no labored breathing Auscultation: lungs clear to auscultation bilaterally Cardiovascular: RRR, no murmur, no edema Gastrointestinal (Abdomen): normal bowel sounds, soft, nontender, no hepatosplenomegaly Musculoskeletal: no cyanosis or clubbing, extremities motor strength 5/5 Skin: no rashes, warm and dry Neurologic: patellar DTR's 2+ bilat, sensation intact and PERRL, EOMI, accommodation nl, no face palsy, no dysarthria Psychiatric: A+Ox3, euthymic affect Lymphatic: no cervical or axillary lymphadenopathy Results & Data Results & Data ([facility]) Vital Signs (Past 12 Hours) Vital Signs Temp Pulse Pulse Pulse Resp BP BP 09/24/20 11:28 36.6 C 74 20 102/61 09/24/20 10:55 78 19 09/24/20 08:06 36.6 C 63 16 126/71 09/24/20 08:00 60 09/24/20 07:26 55 L 18 09/24/20 05:00 60 09/24/20 04:00 61 09/24/20 03:57 68 124/75 09/24/20 03:56 36.6 C 70 18 124/75 09/24/20 03:33 60 21 Pulse Ox 09/24/20 11:28 94 09/24/20 10:55 88 L 04/15/21 08:06 90 09/24/20 08:00 09/24/20 07:26 95 09/24/20 05:00 90 09/24/20 04:00 93 09/24/20 03:57 94 09/24/20 03:56 93 09/24/20 03:33 90 Laboratory Results Laboratory Results - last 24 hr 09/23/20 09/23/20 09/24/20 16:58 20:47 05:59 WBC 11.08 H RBC 4.05 L Hgb 13.1 L Hct 38.9 L MCV 96.0 MCH 32.3 MCHC 33.7 RDW Std Deviation 48.3 H RDW Coeff of Lexy 13.8 Plt Count 246 MPV 10.8 H Immature Gran % (Auto) 3.7 Neut % (Auto) 80.4 Lymph % (Auto) 11.6 [place] % (Auto) 4.2 Eos % (Auto) 0.0 Baso % (Auto) 0.1 Neut # (Auto) 8.91 H Lymph # (Auto) 1.28 [place] # (Auto) 0.47 Eos # (Auto) 0.00 Baso # (Auto) 0.01 Immature Gran # (Auto) 0.41 H Sodium Potassium Chloride Carbon Dioxide Anion Gap BUN Creatinine Est Cr Clr Drug Dosing Est GFR ( Amer) Est GFR (Non-Af Amer) BUN/Creatinine Ratio Glucose POC Glucose 175 H 169 H Calcium Phosphorus Magnesium 09/24/20 09/24/20 09/24/20 05:59 08:04 11:59 WBC RBC Hgb Hct MCV MCH MCHC RDW Std Deviation RDW Coeff of Lexy Plt Count MPV Immature Gran % (Auto) Neut % (Auto) Lymph % (Auto) [place] % (Auto) Eos % (Auto) Baso % (Auto) Neut # (Auto) Lymph # (Auto) [place] # (Auto) Eos # (Auto) Baso # (Auto) Immature Gran # (Auto) Sodium 137 Potassium 4.7 Chloride 106 Carbon Dioxide 25 Anion Gap 6.0 BUN 61 H Creatinine 1.20 Est Cr Clr Drug Dosing 55.4 Est GFR ( Amer) 68.1 Est GFR (Non-Af Amer) 58.8 BUN/Creatinine Ratio 50.6 H Glucose 133 H POC Glucose 118 H 250 H Calcium 9.0 Phosphorus 3.9 Magnesium 2.7 H Medications Administered Current Inpatient Medications Acetaminophen (Acetaminophen 325 Mg Tab) 650 mg PO Q4H PRN PRN Reason: Pain or Fever Stop: 10/13/20 18:12 Last Admin: 09/24/20 03:09 Dose: 650 mg Documented by: Al Hydrox/Mg Hydrox/Simethicone (Aluminum/Magnesium Susp 30 Ml Udc) 15 ml PO Q4H PRN PRN Reason: Dyspepsia Stop: 10/13/20 18:12 Aspirin (Aspirin 81 Mg Ectab) 81 mg PO DAILY [facility] Stop: 10/14/20 08:59 Last Admin: 09/24/20 08:42 Dose: 81 mg Documented by: Budesonide (Budesonide 0.5 Mg/2 Ml Vial (Pulmicort)) 0.5 mg NEB BIDR [facility] Stop: 10/21/20 18:59 Last Admin: 09/24/20 07:25 Dose: 0.5 mg Documented by: Clopidogrel Bisulfate (Clopidogrel Bisulfate 75 Mg Tab) 75 mg PO DAILY [facility] Stop: 10/14/20 08:59 Last Admin: 09/24/20 08:42 Dose: 75 mg Documented by: Dextrose (Dextrose 50% 50 Ml Syringe) 25 - 50 ml IV UD PRN; Protocol PRN Reason: Hypoglycemia Protocol Stop: 10/13/20 20:36 Ezetimibe (Ezetimibe 10 Mg Tablet) 10 mg PO DAILY [facility] Stop: 10/14/20 08:59 Last Admin: 09/24/20 08:42 Dose: 10 mg Documented by: Fenofibrate (Fenofibrate Nanocrystallized 145 Mg Tablet) 145 mg PO DAILY [facility] Stop: 10/14/20 08:59 Last Admin: 09/21/20 08:03 Dose: 145 mg Documented by: Glucagon (Glucagon For Inj 1 Mg Vial) 1 mg SQ UD PRN; Protocol PRN Reason: Hypoglycemia Protocol Stop: 10/13/20 20:36 Glucose (Glucose 10 Tabs/Tube) 4 - 8 tabs PO UD PRN; Protocol PRN Reason: Hypoglycemia Protocol Stop: 10/13/20 20:36 Glucose (Glucose 40% Gel 15 Gm Tube) 15 - 30 gm PO UD PRN; Protocol PRN Reason: Hypoglycemia Protocol Stop: 10/13/20 20:36 Heparin Sodium (Porcine) (Heparin Sod 5,000 Unit/0.5 Ml Vial) 5,000 units SQ Q12 [facility] Stop: 10/19/20 20:59 Last Admin: 09/24/20 08:42 Dose: 5,000 units Documented by: Dexamethasone 20 mg/ Dextrose 30 mls @ 0.833 mls/min IV DAILY URI[facility] Stop: 10/24/20 08:59 Last Infusion: 09/24/20 09:22 Dose: Infused Documented by: Furosemide 20 mg/ Syringe 2 mls @ 4 mls/min IV Q12 [facility] Stop: 10/24/20 20:59 Insulin Aspart (Insulin Aspart 100 Units/Ml 3 Ml Pen) 0 units SC ACHS [facility] Stop: 10/15/20 16:29 Last Admin: 09/24/20 13:00 Dose: 11 units Documented by: Loperamide HCl (Loperamide Hcl 2 Mg Cap) 2 mg PO QID PRN PRN Reason: Diarrhea Stop: 10/14/20 16:44 Last Admin: 09/16/20 07:40 Dose: 2 mg Documented by: Metoprolol Tartrate (Metoprolol Tartrate 25 Mg Tab) 12.5 mg PO BID URI[facility] Stop: 10/23/20 12:59 Last Admin: 09/24/20 08:42 Dose: 12.5 mg Documented by: Miscellaneous (Carbohydrates For Hypoglycemia ) 15 - 30 gm PO UD PRN PRN Reason: Hypoglycemia Protocol Stop: 10/13/20 20:36 Ondansetron HCl (Ondansetron Inj 2 Mg/Ml 2 Ml Vial) 4 mg IV Q4H PRN PRN Reason: Nausea Stop: 10/13/20 18:12 Trazodone HCl (Trazodone Hcl 100 Mg Tab) 100 mg PO HS URIEL Stop: 10/13/20 20:59 Last Admin: 09/23/20 21:17 Dose: 100 mg Documented by: PG Care Time/CCT Total # of Minutes Spent Total Time Spent with Patient: Total time spent is greater than 50% in coordination of care (as documented) at patient's floor/unit and/or counseling patient: Coding Level of Care Code 79574 Subseq Hosp Care Lvl 3 Diagnoses COVID-19 U07.1 Paroxysmal SVT (supraventricular tachycardia) I47.1 Acute kidney failure N17.9 Acute renal failure type: unspecified Diabetes E11.9 Diarrhea A09 Diarrhea type: infectious Acute hypotension I95.9 Hypertension I10 Hypercholesterolemia E78.00 Peripheral artery disease I73.9 DVT prophylaxis Z29.9 (1) Acute kidney failure Acute renal failure type: unspecified Qualified Code(s): N17.9 - Acute kidney failure, unspecified (2) Diarrhea Diarrhea type: infectious Qualified Code(s): A09 - Infectious gastroenteritis and colitis, unspecified
[2020-09-24] MEDS: traZODone HCL 100 MG TAB PO SCH (19:44)
[2020-09-24] MEDS ORDERED: FUROSEMIDE 40 MG/4 ML VIAL IV ONE (19:58)
[2020-09-24] MEDS: FUROSEMIDE 40 MG/4 ML VIAL IV SCH (20:04)
[2020-09-24] MEDS ORDERED: FUROSEMIDE 20 MG in SYRINGE 0 ML IV SCH (21:00)
[2020-09-25] MEDS: BUDESONIDE 0.5 MG/2 ML VIAL (PULMICORT) NEB SCH ×2 (07:24→20:02)
[2020-09-25 07:35] LABS: Hematocrit (blood only) 38.4 % (42-52); Hemoglobin 13.3 g/dL (14.0-18.0); Mean Corpuscular Hemoglobin 33.1 pg (25-34); Mean Corpuscular Hgb Conc 34.6 g/dL (32-36); Mean Corpuscular Volume 95.5 fL (80-100); Mean Platelet Volume 10.7 fL (7.4-10.4); Platelet Count 238 K/uL (130-400); RDW Coefficient of Variation 13.8 % (11.5-14.5); RDW Standard Deviation 48.2 fL (36.4-46.3); Red Blood Count 4.02 M/uL (4.7-6.1); White Blood Count 11.27 K/uL (4.8-10.8)
[2020-09-25 07:46] LABS: BUN Creatinine Ratio 56.2 (10-20); C Reactive Protein 1.66 mg/dl (0-0.29); Calcium 8.8 mg/dl (8.5-10.1); Creatinine Clr Calc Pharmacy 59.6 ml/min; Est GFR (African American) 74.9; Est GFR (Non-African American) 64.6; Potassium 4.3 mmol/L (3.5-5.1)
[2020-09-25] MEDS: INSULIN ASPART 100 UNITS/ML 3 ML PEN SC SCH ×4 (08:00→20:35)
[2020-09-25] MEDS: METOPROLOL TARTRATE 25 MG TAB PO SCH ×2 (08:07→20:53)
[2020-09-25] MEDS: dexAMETHasone 20 MG in DEXTROSE 5% 25 ML IV SCH (08:07)
[2020-09-25] MEDS: CLOPIDOGREL BISULFATE 75 MG TAB PO SCH (08:07)
[2020-09-25] MEDS: ASPIRIN 81 MG ECTAB PO SCH (08:08)
[2020-09-25] MEDS: HEPARIN SOD 5,000 UNIT/0.5 ML VIAL SQ SCH ×2 (08:08→20:55)
[2020-09-25] MEDS: EZETIMIBE 10 MG TABLET PO SCH (08:08)
[2020-09-25] MEDS: FUROSEMIDE 40 MG/4 ML VIAL IV SCH (08:48)
--- NOTE | 2020-09-25 10:18 | Hospitalist Progress Note ---
Date of Service September 25, 2020 Assessment & Plan (1) COVID-19: evidence of COVID pneumonia - completed 10 days of dexamethasone 6mg daily since he is still on high flow, will treat for late ARDS with dexamethasone 20mg IV daily x 5 days then 10mg IV daily x 5 days started the 20mg IV daily on 09/24 CRP is down to 1.6 today, was as high as 16.7 on 09/18, so inflammation is going down - Encourage self proning but he cannot do this due to back pain - Patient continues to require high flow oxygen, stable today at 40L and 70 % FIO2. continue Lasix 20mg IV BID for negative fluid balance, keep lungs dry Cr is stable, weight down 4kg the past 4 days (2) Paroxysmal SVT (supraventricular tachycardia): happened on 09/23 at 1245, only lasted for 4 minutes, rates 150's will start Lopressor 12.5mg BID, no further issues no symptoms hold on anticoagulation since it was only one episode (3) Acute kidney failure: Unknown baseline. Requested notes from his primary care provider regarding prior labs, medical conditions, medications, and past medical history. Suspect prerenal due to hypotension on admission in setting of antihypertensive use. - continue to hold lisinopril and hydrochlorothiazide - Creatinine is normal at 1.1, BUN is 62 Lasix 20mg IV BID, hold dose in the morning until I check BMP (4) Diabetes: A1c was 6.5% this admission. - continue Novolog SS on dexamethasone monitor for hypoglycemia, no episodes (5) Diarrhea: Suspect secondary to COVID-19 as above. C. diff negative on 09/14. - Imodium PRN -no further bleeding, will closely monitor, resume Heparin SC (6) Acute hypotension: Secondary to anti-hypertensives in the setting of diarrhea and dehy dration. - Management as above for IZABELLA continue to hold lisinopril and HCTZ, BP stable in 100s systolic start low dose Lopressor 12.5mg BID for SVT (7) Hypertension: - As above (8) Hypercholesterolemia: - Continue ezetimibe and fenofibrate. Unclear why the patient is not on a statin. (9) Peripheral artery disease: Exact details of this unclear. Patient mentions possible stent. - Continue aspirin 81 mg p.o. daily, clopidogrel 75 mg p.o. daily, ezetimibe 10 mg p.o. daily, & fenofibrate 145 mg p.o. daily (10) DVT prophylaxis: holding Heparin 7500 units SQ Q12h continue SCD Knee Admission and Anticipated Discharge Date Admission Date: September 13, 2020 Subjective patient says he is "really played out, I am so tired of being here" he is very fatigued, gets tearful talking about never leaving the hospital he has been here two weeks, he is starting to lose hope today he is on 40L and 70% FiO2, negative fluid balance with Lasix and weight has trended down the past four days Cr is stable his appetite is poor, he cannot do anything other than lay in bed, cannot lay prone due to back pain I assured him that his CRP is down to 1, we just started Dexamethasone 20mg IV two days ago, hoping it might start to help we discussed work of breathing and fatigue, I asked him if he would want intubated at this point if he gets worse he said quickly that he would NOT want intubated, started to get tearful but he was firm with his answer will change his code status I called his son Nelson with an update Review of Systems Review of Systems: All systems reviewed & are unremarkable except as noted in Subjective Constitutional: + fatigue and + weakness; no fever Respiratory: + dyspnea Cardiovascular: no chest pain and no edema Gastrointestinal: + early satiety; no abdominal pain, no nausea, no vomiting, no constipation and no diarrhea/loose stools Psychiatric: + depression and + hopelessness Physical Exam Constitutional: WD/WN, vitals as above + frail appearing; no acute distress Neck: trachea midline, no thyromegaly Respiratory: normal respiratory effort and + cough; no respiratory distress and no labored breathing Auscultation: lungs clear to auscultation bilaterally Cardiovascular: RRR, no murmur, no edema Gastrointestinal (Abdomen): normal bowel sounds, soft, nontender, no h epatosplenomegaly Musculoskeletal: no cyanosis or clubbing, extremities motor strength 5/5 Skin: no rashes, warm and dry Neurologic: patellar DTR's 2+ bilat, sensation intact and PERRL, EOMI, accommodation nl, no face palsy, no dysarthria Psychiatric: A+Ox3, euthymic affect Lymphatic: no cervical or axillary lymphadenopathy Results & Data Results & Data ([facility]) Vital Signs (Past 12 Hours) Vital Signs Temp Pulse Pulse Resp BP BP Pulse Ox 09/25/20 07:43 36.6 C 72 18 126/65 90 09/25/20 07:24 64 18 93 09/25/20 06:00 72 92 09/25/20 05:53 66 141/72 H 91 09/25/20 05:00 58 L 93 09/25/20 04:53 56 L 137/72 91 09/25/20 04:08 63 92 09/25/20 04:00 63 91 09/25/20 03:53 63 139/74 91 09/25/20 03:34 36.6 C 62 22 131/73 92 09/25/20 03:00 65 90 09/25/20 02:54 72 131/73 91 09/25/20 02:00 62 89 L 09/25/20 01:53 70 121/82 92 09/25/20 01:00 61 90 09/25/20 00:53 62 129/79 94 09/25/20 00:00 60 91 09/24/20 23:53 59 L 121/69 88 L 09/24/20 23:31 65 24 93 09/24/20 23:00 63 91 09/24/20 22:53 58 L 96/66 L 89 L 09/24/20 22:37 36.5 C 69 69 20 113/70 113/70 95 Laboratory Results Laboratory Results - last 24 hr 09/24/20 09/24/20 09/24/20 11:59 16:58 20:02 WBC RBC Hgb Hct MCV MCH MCHC RDW Std Deviation RDW Coeff of Lexy Plt Count MPV Sodium Potassium Chloride Carbon Dioxide Anion Gap BUN Creatinine Est Cr Clr Drug Dosing Est GFR ( Amer) Est GFR (Non-Af Amer) BUN/Creatinine Ratio Glucose POC Glucose 250 H 178 H 189 H Calcium C-Reactive Protein 09/25/20 09/25/20 09/25/20 06:21 06:21 07:45 WBC 11.27 H RBC 4.02 L Hgb 13.3 L Hct 38.4 L MCV 95.5 MCH 33.1 MCHC 34.6 RDW Std Deviation 48.2 H RDW Coeff of Lexy 13.8 Plt Count 238 MPV 10.7 H Sodium 140 Potassium 4.3 Chloride 108 H Carbon Dioxide 26 Anion Gap 6.0 BUN 62 H Creatinine 1.11 Est Cr Clr Drug Dosing 59.6 Est GFR ( Amer) 74.9 Est GFR (Non-Af Amer) 64.6 BUN/Creatinine Ratio 56.2 H Glucose 106 H POC Glucose 105 H Calcium 8.8 C-Reactive Protein 1.66 H Medications Administered Current Inpatient Medications Acetaminophen (Acetaminophen 325 Mg Tab) 650 mg PO Q4H PRN PRN Reason: Pain or Fever Stop: 10/13/20 18:12 Last Admin: 09/24/20 19:43 Dose: 650 mg Documented by: Al Hydrox/Mg Hydrox/Simethicone (Aluminum/Magnesium Susp 30 Ml Udc) 15 ml PO Q4H PRN PRN Reason: Dyspepsia Stop: 10/13/20 18:12 Aspirin (Aspirin 81 Mg Ectab) 81 mg PO DAILY [facility] Stop: 10/14/20 08:59 Last Admin: 09/25/20 08:08 Dose: 81 mg Documented by: Budesonide (Budesonide 0.5 Mg/2 Ml Vial (Pulmicort)) 0.5 mg NEB BIDR [facility] Stop: 10/21/20 18:59 Last Admin: 09/25/20 07:24 Dose: 0.5 mg Documented by: Clopidogrel Bisulfate (Clopidogrel Bisulfate 75 Mg Tab) 75 mg PO DAILY [facility] Stop: 10/14/20 08:59 Last Admin: 09/25/20 08:07 Dose: 75 mg Documented by: Dextrose (Dextrose 50% 50 Ml Syringe) 25 - 50 ml IV UD PRN; Protocol PRN Reason: Hypoglycemia Protocol Stop: 10/13/20 20:36 Ezetimibe (Ezetimibe 10 Mg Tablet) 10 mg PO DAILY [facility] Stop: 10/14/20 08:59 Last Admin: 09/25/20 08:08 Dose: 10 mg Documented by: Fenofibrate (Fenofibrate Nanocrystallized 145 Mg Tablet) 145 mg PO DAILY [facility] Stop: 10/14/20 08:59 Last Admin: 09/21/20 08:03 Dose: 145 mg Documented by: Glucagon (Glucagon For Inj 1 Mg Vial) 1 mg SQ UD PRN; Protocol PRN Reason: Hypoglycemia Protocol Stop: 10/13/20 20:36 Glucose (Glucose 10 Tabs/Tube) 4 - 8 tabs PO UD PRN; Protocol PRN Reason: Hypoglycemia Protocol Stop: 10/13/20 20:36 Glucose (Glucose 40% Gel 15 Gm Tube) 15 - 30 gm PO UD PRN; Protocol PRN Reason: Hypoglycemia Protocol Stop: 10/13/20 20:36 Heparin Sodium (Porcine) (Heparin Sod 5,000 Unit/0.5 Ml Vial) 5,000 units SQ Q12 [facility] Stop: 10/19/20 20:59 Last Admin: 09/25/20 08:08 Dose: 5,000 units Documented by: Dexamethasone 20 mg/ Dextrose 30 mls @ 0.833 mls/min IV DAILY [facility] Stop: 10/24/20 08:59 Last Infusion: 09/25/20 08:45 Dose: Infused Documented by: Furosemide 20 mg/ Syringe 2 mls @ 4 mls/min IV Q12H [facility] Stop: 10/25/20 19:59 Insulin Aspart (Insulin Aspart 100 Units/Ml 3 Ml Pen) 0 units SC ACHS [facility] Stop: 10/15/20 16:29 Last Admin: 09/25/20 08:00 Dose: 8 units Documented by: Loperamide HCl (Loperamide Hcl 2 Mg Cap) 2 mg PO QID PRN PRN Reason: Diarrhea Stop: 10/14/20 16:44 Last Admin: 09/16/20 07:40 Dose: 2 mg Documented by: Metoprolol Tartrate (Metoprolol Tartrate 25 Mg Tab) 12.5 mg PO BID [facility] Stop: 10/23/20 12:59 Last Admin: 09/25/20 08:07 Dose: 12.5 mg Documented by: Miscellaneous (Carbohydrates For Hypoglycemia ) 15 - 30 gm PO UD PRN PRN Reason: Hypoglycemia Protocol Stop: 10/13/20 20:36 Ondansetron HCl (Ondansetron Inj 2 Mg/Ml 2 Ml Vial) 4 mg IV Q4H PRN PRN Reason: Nausea Stop: 10/13/20 18:12 Trazodone HCl (Trazodone Hcl 100 Mg Tab) 100 mg PO HS [facility] Stop: 10/13/20 20:59 Last Admin: 09/24/20 19:44 Dose: 100 mg Documented by: PG Care Time/CCT Total # of Minutes Spent Total Time Spent with Patient: Total time spent is greater than 50% in coordination of care (as documented) at patient's floor/unit and/or counseling patient: Coding Level of Care Code 46011 Subseq Hosp Care Lvl 3 Diagnoses COVID-19 U07.1 Paroxysmal SVT (supraventricular tachycardia) I47.1 Acute kidney failure N17.9 Acute renal failure type: unspecified Diabetes E11.9 Diarrhea A09 Diarrhea type: infectious Acute hypotension I95.9 Hypertension I10 Hypercholesterolemia E78.00 Peripheral artery disease I73.9 DVT prophylaxis Z29.9 (1) Acute kidney failure Acute renal failure type: unspecified Qualified Code(s): N17.9 - Acute kidney failure, unspecified (2) Diarrhea Diarrhea type: infectious Qualified Code(s): A09 - Infectious gastroenteritis and colitis, unspecified
[2020-09-25] MEDS: ACETAMINOPHEN 325 MG TAB PO PRN ×3 (13:31→23:12)
[2020-09-25] MEDS: FUROSEMIDE 20 MG in SYRINGE 0 ML IV SCH (20:44)
[2020-09-25] MEDS: traZODone HCL 100 MG TAB PO SCH (20:53)
[2020-09-26] MEDS: BUDESONIDE 0.5 MG/2 ML VIAL (PULMICORT) NEB SCH ×2 (07:37→20:33)
[2020-09-26] MEDS: INSULIN ASPART 100 UNITS/ML 3 ML PEN SC SCH ×4 (08:15→21:41)
[2020-09-26] MEDS: HEPARIN SOD 5,000 UNIT/0.5 ML VIAL SQ SCH ×2 (08:41→20:45)
[2020-09-26] MEDS: METOPROLOL TARTRATE 25 MG TAB PO SCH ×2 (08:41→20:45)
[2020-09-26] MEDS: ASPIRIN 81 MG ECTAB PO SCH (08:41)
[2020-09-26] MEDS: CLOPIDOGREL BISULFATE 75 MG TAB PO SCH (08:41)
[2020-09-26] MEDS: EZETIMIBE 10 MG TABLET PO SCH (08:41)
[2020-09-26] MEDS: FUROSEMIDE 20 MG in SYRINGE 0 ML IV SCH (08:41)
[2020-09-26] MEDS: dexAMETHasone 20 MG in DEXTROSE 5% 25 ML IV SCH (08:42)
--- NOTE | 2020-09-26 09:12 | Hospitalist Progress Note ---
Date of Service September 26, 2020 Assessment & Plan (1) COVID-19: evidence of COVID pneumonia - completed 10 days of dexamethasone 6mg daily since he is still on high flow, will treat for late ARDS with dexamethasone 20mg IV daily x 5 days then 10mg IV daily x 5 days started the 20mg IV daily on 09/24, today is day 3 of 20mg CRP is down to 1.6 on 09/25, was as high as 16.7 on 09/18, so inflammation is going down - Encourage self proning but he cannot do this due to back pain, try to lay on his side - Patient continues to require high flow oxygen but we were able to change him to wall high flow 15L, so he is requiring less flow saturations 86-90% stop Lasix 20mg IV q12 after this morning's dose, appears euvolemic (2) Paroxysmal SVT (supraventricular tachycardia): happened on 09/23 at 1245, only lasted for 4 minutes, rates 150's will start Lopressor 12.5mg BID, no further issues no symptoms hold on anticoagulation since it was only one episode (3) Acute kidney failure: Unknown baseline. Requested notes from his primary care provider regarding prior labs, medical conditions, medications, and past medical history. Suspect prerenal due to hypotension on admission in setting of antihypertensive use. - continue to hold lisinopril and hydrochlorothiazide - Creatinine is normal at 1.1, BUN is 62 on 09/25, will repeat tomorrow, stop Lasix today (4) Diabetes: A1c was 6.5% this admission. - continue Novolog SS on dexamethasone monitor for hypoglycemia, no episodes (5) Diarrhea: Suspect secondary to COVID-19 as above. C. diff negative on 09/14. - Imodium PRN -no further bleeding, will closely monitor, resume Heparin SC (6) Acute hypotension: Secondary to anti-hypertensives in the setting of diarrhea and dehydration. - Management as above for IZABELLA continue to hold lisinopril and HCTZ, BP stable in 100s systolic start low dose Lopressor 12.5mg BID for SVT (7) Hypertension: - As above (8) Hypercholesterolemia: - Continue ezetimibe and fenofibrate. Unclear why the patient is not on a statin. (9) Peripheral artery disease: Exact details of this unclear. Patient mentions possible stent. - Continue aspirin 81 mg p.o. daily, clopidogrel 75 mg p.o. daily, ezetimibe 10 mg p.o. daily, & fenofibrate 145 mg p.o. daily (10) DVT prophylaxis: holding Heparin 7500 units SQ Q12h continue SCD Knee Admission and Anticipated Discharge Date Admission Date: September 13, 2020 Subjective patient is very tired, his RN says he has not really slept in 4-5 days he is down to 15L wall high flow, saturations 86-90% encouraged him to eat and drink today not responding as well to Lasix, will stop after this morning's dose again discussed that he is not getting worse but also not getting better as quickly as I would hope discussed that sometimes people can require high flow for weeks but they need to eat, get OOB, keep their strength up encouraged him to try those things if he can, but understand that he is very tired his RN will limit any interruptions so he is able to rest if possible I updated his son in [facility] this morning Review of Systems Review of Systems: All systems reviewed & are unremarkable except as noted in Subjective Constitutional: + fatigue and + weakness Respiratory: + dyspnea; no cough Cardiovascular: no chest pain, no palpitations and no edema Gastrointestinal: + early satiety; no abdominal pain, no nausea, no vomiting, no constipation and no diarrhea/loose stools Physical Exam Constitutional: WD/WN, vitals as above + frail appearing; no acute distress Neck: trachea midline, no thyromegaly Respiratory: normal respiratory effort; no respiratory distress and no labored breathing Auscultation: lungs clear to auscultation bilaterally Cardiovascular: RRR, no murmur, no edema Gastrointestinal (Abdomen): normal bowel sounds, soft, nontender, no hepatosplenomegaly Musculoskeletal: no cyanosis or clubbing, extremities motor strength 5/5 Skin: no rashes, warm and dry Neurologic: patellar DTR's 2+ bilat, sensation intact and PERRL, EOMI, accommodation nl, no face palsy, no dysarthria Psychiatric: A+Ox3, euthymic affect Lymphatic: no cervical or axillary lymphadenopathy Results & Data Results & Data ([facility]) Vital Signs (Past 12 Hours) Vital Signs Temp Pulse Pulse Pulse Resp BP BP 09/26/20 08:00 37.3 C 94 H 20 128/95 09/26/20 07:40 88 20 09/26/20 04:00 101 H 09/26/20 03:27 36.6 C 95 H 112 H 20 139/78 139/78 09/26/20 02:00 95 H 09/26/20 00:00 82 09/25/20 23:24 77 137/88 09/25/20 23:22 36.5 C 77 19 137/88 09/25/20 22:53 80 21 09/25/20 22:30 75 09/25/20 22:00 95 H Pulse Ox 09/26/20 08:00 90 09/26/20 07:40 92 09/26/20 04:00 90 09/26/20 03:27 94 09/26/20 02:00 91 09/26/20 00:00 92 09/25/20 23:24 93 09/25/20 23:22 95 09/25/20 22:53 92 09/25/20 22:30 09/25/20 22:00 94 Laboratory Results Laboratory Results - last 24 hr 09/25/20 09/25/20 09/25/20 11:40 16:10 20:20 POC Glucose 222 H 186 H 183 H 09/26/20 08:32 POC Glucose 114 H Medications Administered Current Inpatient Medications Acetaminophen (Acetaminophen 325 Mg Tab) 650 mg PO Q4H PRN PRN Reason: Pain or Fever Stop: 10/13/20 18:12 Last Admin: 09/25/20 23:12 Dose: 650 mg Documented by: Al Hydrox/Mg Hydrox/Simethicone (Aluminum/Magnesium Susp 30 Ml Udc) 15 ml PO Q4H PRN PRN Reason: Dyspepsia Stop: 10/13/20 18:12 Aspirin (Aspirin 81 Mg Ectab) 81 mg PO DAILY [facility] Stop: 10/14/20 08:59 Last Admin: 09/26/20 08:41 Dose: 81 mg Documented by: Budesonide (Budesonide 0.5 Mg/2 Ml Vial (Pulmicort)) 0.5 mg NEB BIDR [facility] Stop: 10/21/20 18:59 Last Admin: 09/26/20 07:37 Dose: 0.5 mg Documented by: Clopidogrel Bisulfate (Clopidogrel Bisulfate 75 Mg Tab) 75 mg PO DAILY [facility] Stop: 10/14/20 08:59 Last Admin: 09/26/20 08:41 Dose: 75 mg Documented by: Dextrose (Dextrose 50% 50 Ml Syringe) 25 - 50 ml IV UD PRN; Protocol PRN Reason: Hypoglycemia Protocol Stop: 10/13/20 20:36 Ezetimibe (Ezetimibe 10 Mg Tablet) 10 mg PO DAILY [facility] Stop: 10/14/20 08:59 Last Admin: 09/26/20 08:41 Dose: 10 mg Documented by: Fenofibrate (Fenofibrate Nanocrystallized 145 Mg Tablet) 145 mg PO DAILY [facility] Stop: 10/14/20 08:59 Last Admin: 09/21/20 08:03 Dose: 145 mg Documented by: Glucagon (Glucagon For Inj 1 Mg Vial) 1 mg SQ UD PRN; Protocol PRN Reason: Hypoglycemia Protocol Stop: 10/13/20 20:36 Glucose (Glucose 10 Tabs/Tube) 4 - 8 tabs PO UD PRN; Protocol PRN Reason: Hypoglycemia Protocol Stop: 10/13/20 20:36 Glucose (Glucose 40% Gel 15 Gm Tube) 15 - 30 gm PO UD PRN; Protocol PRN Reason: Hypoglycemia Protocol Stop: 10/13/20 20:36 Heparin Sodium (Porcine) (Heparin Sod 5,000 Unit/0.5 Ml Vial) 5,000 units SQ Q12 [facility] Stop: 10/19/20 20:59 Last Admin: 09/26/20 08:41 Dose: 5,000 units Documented by: Dexamethasone 20 mg/ Dextrose 30 mls @ 0.833 mls/min IV DAILY [facility] Stop: 10/24/20 08:59 Last Admin: 09/26/20 08:42 Dose: 0.8 mls/min Documented by: Insulin Aspart (Insulin Aspart 100 Units/Ml 3 Ml Pen) 0 units SC ACHS [facility] Stop: 10/15/20 16:29 Last Admin: 09/25/20 20:35 Dose: 3 units Documented by: Loperamide HCl (Loperamide Hcl 2 Mg Cap) 2 mg PO QID PRN PRN Reason: Diarrhea Stop: 10/14/20 16:44 Last Admin: 09/16/20 07:40 Dose: 2 mg Documented by: Metoprolol Tartrate (Metoprolol Tartrate 25 Mg Tab) 12.5 mg PO BID [facility] Stop: 10/23/20 12:59 Last Admin: 09/26/20 08:41 Dose: 12.5 mg Documented by: Miscellaneous (Carbohydrates For Hypoglycemia ) 15 - 30 gm PO UD PRN PRN Reason: Hypoglycemia Protocol Stop: 10/13/20 20:36 Ondansetron HCl (Ondansetron Inj 2 Mg/Ml 2 Ml Vial) 4 mg IV Q4H PRN PRN Reason: Nausea Stop: 10/13/20 18:12 Trazodone HCl (Trazodone Hcl 100 Mg Tab) 100 mg PO HS [facility] Stop: 10/13/20 20:59 Last Admin: 09/25/20 20:53 Dose: 100 mg Documented by: PG Care Time/CCT Total # of Minutes Spent Total Time Spent: 32 Total Time Spent with Patient: Total time spent is greater than 50% in coordination of care (as documented) at patient's floor/unit and/or counseling patient: spoke with family on the phone about his condition, plan Coding Level of Care Code 93734 Subseq Hosp Care Lvl 3 Diagnoses COVID-19 U07.1 Paroxysmal SVT (supraventricular tachycardia) I47.1 Acute kidney failure N17.9 Acute renal failure type: unspecified Diabetes E11.9 Diarrhea A09 Diarrhea type: infectious Acute hypotension I95.9 Hypertension I10 Hypercholesterolemia E78.00 Peripheral artery disease I73.9 DVT prophylaxis Z29.9 (1) Acute kidney failure Acute renal failure type: unspecified Qualified Code(s): N17.9 - Acute kidney failure, unspecified (2) Diarrhea Diarrhea type: infectious Qualified Code(s): A09 - Infectious gastroenteritis and colitis, unspecified
[2020-09-26] MEDS ORDERED: MELATONIN 3 MG TAB PO PRN (19:51)
[2020-09-26] MEDS: traZODone HCL 100 MG TAB PO SCH (20:45)
[2020-09-26] MEDS: ACETAMINOPHEN 325 MG TAB PO PRN (20:50)
[2020-09-27 07:14] LABS: BUN Creatinine Ratio 56.1 (10-20); Calcium 8.7 mg/dl (8.5-10.1); Creatinine Clr Calc Pharmacy 66.2 ml/min; Est GFR (Non-African American) 74.2; Magnesium 2.6 mg/dl (1.8-2.4); Potassium 4.6 mmol/L (3.5-5.1)
[2020-09-27] MEDS: BUDESONIDE 0.5 MG/2 ML VIAL (PULMICORT) NEB SCH ×2 (08:12→20:06)
[2020-09-27] MEDS: INSULIN ASPART 100 UNITS/ML 3 ML PEN SC SCH ×4 (08:15→21:08)
[2020-09-27] MEDS: dexAMETHasone 20 MG in DEXTROSE 5% 25 ML IV SCH (08:38)
[2020-09-27] MEDS: CLOPIDOGREL BISULFATE 75 MG TAB PO SCH (08:39)
[2020-09-27] MEDS: ASPIRIN 81 MG ECTAB PO SCH (08:39)
[2020-09-27] MEDS: HEPARIN SOD 5,000 UNIT/0.5 ML VIAL SQ SCH ×2 (08:39→21:08)
[2020-09-27] MEDS: EZETIMIBE 10 MG TABLET PO SCH (08:39)
[2020-09-27] MEDS: METOPROLOL TARTRATE 25 MG TAB PO SCH ×2 (08:40→21:06)
--- NOTE | 2020-09-27 10:54 | Hospitalist Progress Note ---
Date of Service September 27, 2020 Assessment & Plan (1) COVID-19: evidence of COVID pneumonia - completed 10 days of dexamethasone 6mg daily since he was still on high flow after 10 days, will treat for late ARDS with dexamethasone 20mg IV daily x 5 days then 10mg IV daily x 5 days started the 20mg IV daily on 09/24, today is day 4 of 20mg, change to 10mg IV on 09/29 CRP is down to 1.6 on 09/25, was as high as 16.7 on 09/18, so inflammation is going down - Encourage self proning but he cannot do this due to back pain, try to lay on his side - Patient continues to require high flow oxygen but over the past 48 hours he went from Vapotherm 40L 70% to 15L wall high flow and now is down to 10L wall high flow finally appears to be improving but will still take another week to recover will probably need rehab, PT/OT consulted continue to try to wean as tolerated and complete the high dose Decadron protocol (2) Acute respiratory failure with hypoxia: slowly starting to improve, especially in past 48 hours was on Vapotherm for over a week, on Monday was 40L and 70% FiO2 on 09/26 got him down to 15L wall high flow today down to 10L wall high flow continue to wean as tolerated he cannot lay prone, multiple discussions held to try this discussed code status on 09/26, he said he would not want intubated if he would get worse (3) Paroxysmal SVT (supraventricular tachycardia): happened on 09/23 at 1245, only lasted for 4 minutes, rates 150's will start Lopressor 12.5mg BID, no further issues no symptoms hold on anticoagulation since it was only one episode rates < 100 today (4) Acute kidney failure: Unknown baseline. Requested notes from his primary care provider regarding prior labs, medical conditions, medications, and past medical history. Suspect prerenal due to hypotension on admission in setting of antihypertensive use. - continue to hold lisinopril and hydrochlorothiazide - Creatinine is normal at 0.9, BUN is 56 used Lasix for 4 days to help remove some excess volume, now appears euvolemic (5) Diabetes: A1c was 6.5% this admission. - continue Novolog SS on dexamethasone monitor for hypoglycemia, no episodes (6) Diarrhea: Suspect secondary to COVID-19 as above. C. diff negative on 09/14. - Imodium PRN -no further bleeding, will closely monitor, resume Heparin SC (7) Acute hypotension: Secondary to anti-hypertensives in the setting of diarrhea and dehydration. - Management as above for IZABELLA continue to hold lisinopril and HCTZ, BP stable in 100s systolic start low dose Lopressor 12.5mg BID for SVT (8) Hypertension: - As above (9) Hypercholesterolemia: - Continue ezetimibe and fenofibrate. Unclear why the patient is not on a statin. (10) Peripheral artery disease: Exact details of this unclear. Patient mentions possible stent. - Continue aspirin 81 mg p.o. daily, clopidogrel 75 mg p.o. daily, ezetimibe 10 mg p.o. daily, & fenofibrate 145 mg p.o. daily (11) DVT prophylaxis: holding Heparin 7500 units SQ Q12h continue SCD Knee Admission and Anticipated Discharge Date Admission Date: September 13, 2020 Subjective patient is breathing a little easier, down to 10L wall high flow which is a big improvement, was 15 yesterday and was Vapotheram all week he is eating okay, not great was OOB to chair this morning briefly for breakfast but got tired and needed to get back to bed he slept really well last night, first time in days BMP today shows Na 140, Cr 0.99 he asked about when he can go home, explained that he will need to be here the rest of the week Review of Systems Review of Systems: All systems reviewed & are unremarkable except as noted in Subjective Constitutional: + fatigue and + weakness; no fever Respiratory: + dyspnea on exertion; no cough and no dyspnea Cardiovascular: no chest pain and no edema Gastrointestinal: no abdominal pain, no nausea, no vomiting, no constipation and no diarrhea/loose stools Physical Exam Constitutional: WD/WN, vitals as above + frail appearing; no acute distress Neck: trachea midline, no thyromegaly Respiratory: normal respiratory effort; no respiratory distress and no labored breathing Auscultation: lungs clear to auscultation bilaterally Cardiovascular: RRR, no murmur, no edema Gastrointestinal (Abdomen): normal bowel sounds, soft, nontender, no hepatosplenomegaly Musculoskeletal: no cyanosis or clubbing, extremities motor strength 5/5 Skin: no rashes, warm and dry Neurologic: patellar DTR's 2+ bilat, sensation intact and PERRL, EOMI, accommodation nl, no face palsy, no dysarthria Psychiatric: A+Ox3, euthymic affect Lymphatic: no cervical or axillary lymphadenopathy Results & Data Results & Data ([facility]) Vital Signs (Past 12 Hours) Vital Signs Temp Pulse Pulse Pulse Resp BP BP 09/27/20 08:14 87 20 09/27/20 08:03 36.6 C 70 20 119/65 09/27/20 08:00 66 09/27/20 05:20 36.5 C 70 20 115/64 09/27/20 05:19 65 115/64 09/27/20 05:10 71 20 09/27/20 05:00 58 L 09/27/20 04:00 62 09/27/20 03:00 53 L 09/27/20 02:00 62 09/27/20 01:00 65 09/27/20 00:00 62 09/26/20 23:11 74 97/62 L 09/26/20 23:08 63 20 97/62 L 09/26/20 23:00 65 Pulse Ox 09/27/20 08:14 91 09/27/20 08:03 89 L 09/27/20 08:00 09/27/20 05:20 85 L 09/27/20 05:19 86 L 09/27/20 05:10 90 09/27/20 05:00 93 09/27/20 04:00 90 09/27/20 03:00 91 09/27/20 02:00 91 09/27/20 01:00 93 09/27/20 00:00 92 09/26/20 23:11 89 L 09/26/20 23:08 91 09/26/20 23:00 91 Laboratory Results Laboratory Results - last 24 hr 09/26/20 09/26/20 09/26/20 11:48 16:44 20:07 Sodium Potassium Chloride Carbon Dioxide Anion Gap BUN Creatinine Est Cr Clr Drug Dosing Est GFR ( Amer) Est GFR (Non-Af Amer) BUN/Creatinine Ratio Glucose POC Glucose 297 H 188 H 250 H Calcium Magnesium 09/27/20 09/27/20 06:16 08:02 Sodium 140 Potassium 4.6 Chloride 108 H Carbon Dioxide 26 Anion Gap 6.0 BUN 56 H Creatinine 0.99 Est Cr Clr Drug Dosing 66.2 Est GFR ( Amer) 86.0 Est GFR (Non-Af Amer) 74.2 BUN/Creatinine Ratio 56.1 H Glucose 130 H POC Glucose 119 H Calcium 8.7 Magnesium 2.6 H Medications Administered Current Inpatient Medications Acetaminophen (Acetaminophen 325 Mg Tab) 650 mg PO Q4H PRN PRN Reason: Pain or Fever Stop: 10/13/20 18:12 Last Admin: 09/26/20 20:50 Dose: 650 mg Documented by: Al Hydrox/Mg Hydrox/Simethicone (Aluminum/Magnesium Susp 30 Ml Udc) 15 ml PO Q4H PRN PRN Reason: Dyspepsia Stop: 10/13/20 18:12 Aspirin (Aspirin 81 Mg Ectab) 81 mg PO DAILY [facility] Stop: 10/14/20 08:59 Last Admin: 09/27/20 08:39 Dose: 81 mg Documented by: Budesonide (Budesonide 0.5 Mg/2 Ml Vial (Pulmicort)) 0.5 mg NEB BIDR [facility] Stop: 10/21/20 18:59 Last Admin: 09/27/20 08:12 Dose: 0.5 mg Documented by: Clopidogrel Bisulfate (Clopidogrel Bisulfate 75 Mg Tab) 75 mg PO DAILY [facility] Stop: 10/14/20 08:59 Last Admin: 09/27/20 08:39 Dose: 75 mg Documented by: Dextrose (Dextrose 50% 50 Ml Syringe) 25 - 50 ml IV UD PRN; Protocol PRN Reason: Hypoglycemia Protocol Stop: 10/13/20 20:36 Ezetimibe (Ezetimibe 10 Mg Tablet) 10 mg PO DAILY [facility] Stop: 10/14/20 08:59 Last Admin: 09/27/20 08:39 Dose: 10 mg Documented by: Fenofibrate (Fenofibrate Nanocrystallized 145 Mg Tablet) 145 mg PO DAILY [facility] Stop: 10/14/20 08:59 Last Admin: 09/21/20 08:03 Dose: 145 mg Documented by: Glucagon (Glucagon For Inj 1 Mg Vial) 1 mg SQ UD PRN; Protocol PRN Reason: Hypoglycemia Protocol Stop: 10/13/20 20:36 Glucose (Glucose 10 Tabs/Tube) 4 - 8 tabs PO UD PRN; Protocol PRN Reason: Hypoglycemia Protocol Stop: 10/13/20 20:36 Glucose (Glucose 40% Gel 15 Gm Tube) 15 - 30 gm PO UD PRN; Protocol PRN Reason: Hypoglycemia Protocol Stop: 10/13/20 20:36 Heparin Sodium (Porcine) (Heparin Sod 5,000 Unit/0.5 Ml Vial) 5,000 units SQ Q12 [facility] Stop: 10/19/20 20:59 Last Admin: 09/27/20 08:39 Dose: 5,000 units Documented by: Dexamethasone 20 mg/ Dextrose 30 mls @ 0.833 mls/min IV DAILY [facility] Stop: 10/24/20 08:59 Last Infusion: 09/27/20 09:16 Dose: Infused Documented by: Insulin Aspart (Insulin Aspart 100 Units/Ml 3 Ml Pen) 0 units SC ACHS [facility] Stop: 10/15/20 16:29 Last Admin: 09/27/20 08:15 Dose: 14 units Documented by: Loperamide HCl (Loperamide Hcl 2 Mg Cap) 2 mg PO QID PRN PRN Reason: Diarrhea Stop: 10/14/20 16:44 Last Admin: 09/16/20 07:40 Dose: 2 mg Documented by: Melatonin (Melatonin 3 Mg Tab) 3 mg PO HS PRN PRN Reason: Sleep Stop: 10/26/20 19:50 Last Admin: 09/26/20 20:45 Dose: 3 mg Documented by: Metoprolol Tartrate (Metoprolol Tartrate 25 Mg Tab) 12.5 mg PO BID [facility] Stop: 10/23/20 12:59 Last Admin: 09/27/20 08:40 Dose: 12.5 mg Documented by: Miscellaneous (Carbohydrates For Hypoglycemia ) 15 - 30 gm PO UD PRN PRN Reason: Hypoglycemia Protocol Stop: 10/13/20 20:36 Ondansetron HCl (Ondansetron Inj 2 Mg/Ml 2 Ml Vial) 4 mg IV Q4H PRN PRN Reason: Nausea Stop: 10/13/20 18:12 Trazodone HCl (Trazodone Hcl 100 Mg Tab) 100 mg PO HS [facility] Stop: 10/13/20 20:59 Last Admin: 09/26/20 20:45 Dose: 100 mg Documented by: PG Care Time/CCT Total # of Minutes Spent Total Time Spent with Patient: Total time spent is greater than 50% in coordination of care (as documented) at patient's floor/unit and/or counseling patient: Coding Level of Care Code 06708 Subseq Hosp Care Lvl 3 Diagnoses COVID-19 U07.1 Acute respiratory failure with hypoxia J96.01 Paroxysmal SVT (supraventricular tachycardia) I47.1 Acute kidney failure N17.9 Acute renal failure type: unspecified Diabetes E11.9 Diarrhea A09 Diarrhea type: infectious Acute hypotension I95.9 Hypertension I10 Hypercholesterolemia E78.00 Peripheral artery disease I73.9 DVT prophylaxis Z29.9 (1) Acute kidney failure Acute renal failure type: unspecified Qualified Code(s): N17.9 - Acute kidney failure, unspecified (2) Diarrhea Diarrhea type: infectious Qualified Code(s): A09 - Infectious gastroenteritis and colitis, unspecified
[2020-09-27] MEDS: traZODone HCL 100 MG TAB PO SCH (21:06)
[2020-09-28 07:15] LABS: Hematocrit (blood only) 39.4 % (42-52); Hemoglobin 13.1 g/dL (14.0-18.0); Mean Corpuscular Hemoglobin 32.5 pg (25-34); Mean Corpuscular Hgb Conc 33.2 g/dL (32-36); Mean Corpuscular Volume 97.8 fL (80-100); Mean Platelet Volume 10.3 fL (7.4-10.4); Platelet Count 213 K/uL (130-400); RDW Coefficient of Variation 14.2 % (11.5-14.5); RDW Standard Deviation 50.4 fL (36.4-46.3); Red Blood Count 4.03 M/uL (4.7-6.1); White Blood Count 13.42 K/uL (4.8-10.8)
[2020-09-28] MEDS: BUDESONIDE 0.5 MG/2 ML VIAL (PULMICORT) NEB SCH ×2 (07:27→20:00)
[2020-09-28] MEDS: METOPROLOL TARTRATE 25 MG TAB PO SCH ×2 (07:58→20:37)
[2020-09-28] MEDS: HEPARIN SOD 5,000 UNIT/0.5 ML VIAL SQ SCH ×2 (07:59→20:41)
[2020-09-28] MEDS: EZETIMIBE 10 MG TABLET PO SCH (07:59)
[2020-09-28] MEDS: CLOPIDOGREL BISULFATE 75 MG TAB PO SCH (07:59)
[2020-09-28] MEDS: ASPIRIN 81 MG ECTAB PO SCH (07:59)
[2020-09-28] MEDS: dexAMETHasone 20 MG in DEXTROSE 5% 25 ML IV SCH (08:31)
[2020-09-28] MEDS: INSULIN ASPART 100 UNITS/ML 3 ML PEN SC SCH ×4 (08:34→20:38)
--- NOTE | 2020-09-28 19:08 | Hospitalist Progress Note ---
Date of Service September 28, 2020 Assessment & Plan (1) COVID-19: evidence of COVID pneumonia - completed 10 days of dexamethasone 6mg daily since he was still on high flow after 10 days, will treat for late ARDS with dexamethasone 20mg IV daily x 5 days then 10mg IV daily x 5 days started the 20mg IV daily on 09/24, today is day 5 of 20mg, change to 10mg IV on 09/29 CRP is down to 1.6 on 09/25, was as high as 16.7 on 09/18, so inflammation is going down - Encourage self proning but he cannot do this due to back pain, try to lay on his side - Patient continues to require high flow oxygen but over the past 2-3 days hours he went from Vapotherm 40L 70% to 15L wall high flow and now is down to 12L wall high flow finally appears to be improving but will still take another week to recover will probably need rehab, PT/OT consulted continue to try to wean as tolerated and complete the high dose Decadron protocol (2) Acute respiratory failure with hypoxia: slowly starting to improve, as above was on Vapotherm for over a week, on Monday was 40L and 70% FiO2 on 09/26 got him down to 15L wall high flow today down to 12L wall high flow continue to wean as tolerated he cannot lay prone, multiple discussions held to try this discussed code status on 09/26, he said he would not want intubated if he would get worse (3) Paroxysmal SVT (supraventricular tachycardia): happened on 09/23 at 1245, only lasted for 4 minutes, rates 150's Started Lopressor 12.5mg BID, no further issues no symptoms (4) Acute kidney failure: Unknown baseline. Requested notes from his primary care provider regarding prior labs, medical conditions, medications, and past medical history. Suspect prerenal due to hypotension on admission in setting of antihypertensive use. - continue to hold lisinopril and hydrochlorothiazide - Creatinine is normal at 0.9, BUN is 56 used Lasix for 4 days to help remove some excess volume, now appears euvolemic (5) Diabetes: A1c was 6.5% this admission. - continue Novolog SS on dexamethasone monitor for hypoglycemia, no episodes -Holding home glipizide (6) Diarrhea: Suspect secondary to COVID-19 as above. C. diff negative on 09/14. Now resolved - Imodium PRN -no further bleeding, will closely monitor, resumed Heparin SC (7) Acute hypotension: Secondary to anti-hypertensives in the setting of diarrhea and dehydration. - Management as above for IZABELLA Blood pressures are now stable continue to hold lisinopril and HCTZ started low dose Lopressor 12.5mg BID for SVT (8) Hypertension: - As above Continue home aspirin as well (9) Hypercholesterolemia: - Continue ezetimibe and fenofibrate. Unclear why the patient is not on a statin. (10) Peripheral artery disease: Exact details of this unclear. Patient mentions possible stent. - Continue aspirin 81 mg p.o. daily, clopidogrel 75 mg p.o. daily, ezetimibe 10 mg p.o. daily, & fenofibrate 145 mg p.o. daily (11) DVT prophylaxis: Heparin SQ continue SCD Knee Disposition-continued stay in Covid unit as his oxygenation is a little bit worse than yesterday although he is beyond the time where he could come off Covid precautions. Will reconsider this tomorrow. Continued stay on telemetry Admission and Anticipated Discharge Date Admission Date: September 13, 2020 Subjective Patient frustrated about being in the hospital for so long. Remains on 12 L high flow nasal cannula. Has a cough. Denies chest pain or nausea. He is eating. He is at bed to the chair. Telemetry with normal sinus rhythm with rates in the 50s to 90s. Review of Systems Review of Systems: All systems reviewed & are unremarkable except as noted in HPI & below Physical Exam Constitutional: WD/WN, vitals as above Eyes: + anicteric sclerae Neck: trachea midline, no thyromegaly Respiratory: normal respiratory effort Auscultation: + diminished lung sounds (Throughout); no crackles and no wheezes Cardiovascular: RRR, no murmur, no edema Chest (Breasts): Chest: normal inspection of chest Gastrointestinal (Abdomen): normal bowel sounds, soft, nontender, no hepatosplenomegaly Musculoskeletal: Extremities: extremities normal to inspection; no cyanosis and no clubbing Skin: no rashes, warm and dry Neurologic: moves all extremities and awake; no focal motor deficits Psychiatric: A+Ox3, euthymic affect Lymphatic: no lymphedema Results & Data Results & Data ([facility]) Vital Signs (Past 12 Hours) Vital Signs Temp Pulse Pulse Pulse Resp BP Pulse Ox 09/28/20 16:00 97 H 09/28/20 15:34 36.7 C 90 20 124/72 97 09/28/20 11:02 36.6 C 88 20 110/66 96 09/28/20 07:27 84 95 09/28/20 07:07 36.6 C 66 20 129/61 93 Laboratory Results 09/28/20 09/28/20 09/28/20 Range/Units 16:19 11:31 07:47 WBC (4.8-10.8) K/uL RBC (4.7-6.1) M/uL Hgb (14.0-18.0) g/dL Hct (42-52) % MCV (80-100) fL MCH (25-34) pg MCHC (32-36) g/dL RDW Std Deviation (36.4-46.3) fL RDW Coeff of Lexy (11.5-14.5) % Plt Count (130-400) K/uL MPV (7.4-10.4) fL POC Glucose 165 H 254 H 82 (70-99) mg/dl 09/28/20 09/27/20 Range/Units 06:32 20:38 WBC 13.42 H (4.8-10.8) K/uL RBC 4.03 L (4.7-6.1) M/uL Hgb 13.1 L (14.0-18.0) g/dL Hct 39.4 L (42-52) % MCV 97.8 (80-100) fL MCH 32.5 (25-34) pg MCHC 33.2 (32-36) g/dL RDW Std Deviation 50.4 H (36.4-46.3) fL RDW Coeff of Lexy 14.2 (11.5-14.5) % Plt Count 213 (130-400) K/uL MPV 10.3 (7.4-10.4) fL POC Glucose 123 H (70-99) mg/dl PG Care Time/CCT Total # of Minutes Spent Total Time Spent with Patient: Total time spent is greater than 50% in coordination of care (as documented) at patient's floor/unit and/or counseling patient: Coding Level of Care Code 08340 Subseq Hosp Care Lvl 3 Diagnoses COVID-19 U07.1 Acute respiratory failure with hypoxia J96.01 Paroxysmal SVT (supraventricular tachycardia) I47.1 Acute kidney failure N17.9 Acute renal failure type: unspecified Diabetes E11.9 Diarrhea A09 Diarrhea type: infectious Acute hypotension I95.9 Hypertension I10 Hypercholesterolemia E78.00 Peripheral artery disease I73.9 DVT prophylaxis Z29.9 (1) Acute kidney failure Acute renal failure type: unspecified Qualified Code(s): N17.9 - Acute kidney failure, unspecified (2) Diarrhea Diarrhea type: infectious Qualified Code(s): A09 - Infectious gastroenteritis and colitis, unspecified
[2020-09-28] MEDS: traZODone HCL 100 MG TAB PO SCH (20:37)
[2020-09-28] MEDS: ACETAMINOPHEN 325 MG TAB PO PRN (20:37)
[2020-09-29 06:22] LABS: Basophils # (auto) 0.02 K/uL (0-0.2); Basophils % (auto) 0.2 %; Eosinophils # (auto) 0.01 K/uL (0-0.5); Eosinophils % (auto) 0.1 %; Hematocrit (blood only) 38.9 % (42-52); Hemoglobin 12.9 g/dL (14.0-18.0); Immature Granulocytes # (auto) 0.47 K/uL (0.00-0.02); Immature Granulocytes % (auto) 3.9 %; Lymphocytes # (auto) 1.51 K/uL (1.2-3.4); Lymphocytes % (auto) 12.6 %; Mean Corpuscular Hemoglobin 32.4 pg (25-34); Mean Corpuscular Hgb Conc 33.2 g/dL (32-36); Mean Corpuscular Volume 97.7 fL (80-100); Mean Platelet Volume 9.8 fL (7.4-10.4); Monocytes % (auto) 5.9 %; Neutrophils # (auto) 9.24 K/uL (1.4-6.5); Neutrophils % (auto) 77.3 %; Platelet Count 203 K/uL (130-400); RDW Coefficient of Variation 14.2 % (11.5-14.5); RDW Standard Deviation 50.4 fL (36.4-46.3); Red Blood Count 3.98 M/uL (4.7-6.1); White Blood Count 11.95 K/uL (4.8-10.8)
[2020-09-29 06:49] LABS: Albumin Level 2.2 gm/dl (3.4-5.0); BUN Creatinine Ratio 43.3 (10-20); C Reactive Protein 1.11 mg/dl (0-0.29); Creatinine Clr Calc Pharmacy 73.5 ml/min; Est GFR (African American) 96.5; Est GFR (Non-African American) 83.3; Potassium 5.3 mmol/L (3.5-5.1)
[2020-09-29 06:50] LABS: Albumin Globulin Ratio 0.6 (0.9-2); Bilirubin,Total 0.7 mg/dl (0.2-1); Globulin 3.8 gm/dl (2.5-4.0)
[2020-09-29] MEDS: BUDESONIDE 0.5 MG/2 ML VIAL (PULMICORT) NEB SCH ×2 (07:18→19:43)
[2020-09-29] MEDS: CLOPIDOGREL BISULFATE 75 MG TAB PO SCH (08:53)
[2020-09-29] MEDS: EZETIMIBE 10 MG TABLET PO SCH (08:53)
[2020-09-29] MEDS: ASPIRIN 81 MG ECTAB PO SCH (08:53)
[2020-09-29] MEDS: HEPARIN SOD 5,000 UNIT/0.5 ML VIAL SQ SCH ×2 (08:54→20:45)
[2020-09-29] MEDS: METOPROLOL TARTRATE 25 MG TAB PO SCH ×2 (08:54→20:45)
[2020-09-29] MEDS: hydroCHLOROthiazide 25 MG TAB PO SCH (08:54)
[2020-09-29] MEDS: INSULIN ASPART 100 UNITS/ML 3 ML PEN SC SCH ×4 (08:56→20:47)
[2020-09-29] MEDS: dexAMETHasone 10 MG in SYRINGE 0 ML IV SCH (08:58)
[2020-09-29] MEDS ORDERED: dexAMETHasone 10 MG in DEXTROSE 5% 25 ML IV SCH (09:00)
--- NOTE | 2020-09-29 16:52 | Hospitalist Progress Note ---
Date of Service September 29, 2020 Assessment & Plan (1) COVID-19: evidence of COVID pneumonia on chest imaging - completed 10 days of dexamethasone 6mg daily since he was still on high flow nasal cannula after 10 days, will treat for late ARDS with dexamethasone 20mg IV daily x 5 days then 10mg IV daily x 5 days Completed 5 days of 20mg IV daily and now on 10mg IV since 09/29-last day of treatment will be 10/03 CRP down to 1.1 but was as high as 16.7 on 09/18--> so inflammation is going down - Encourage self proning but he cannot do this due to back pain, encouraged him to lay on his side - Patient continues to require high flow oxygen but has since been weaned from Vapotherm 40L 70% to wall high flow nasal cannula at 9-11 L He is very frustrated-gave encouragement with goal to get out of the hospital by the end of the week will probably need rehab, PT/OT consulted continue to try to wean as tolerated and complete the high dose Decadron protocol (2) Acute respiratory failure with hypoxia: slowly starting to improve, as above was on Vapotherm for over a week, on Monday was 40L and 70% FiO2 on 09/26 got him down to 15L wall high flow today stable at 9-11 L wall high flow continue to wean as tolerated he cannot lay prone, multiple discussions held to try this discussed code status on 09/26, he said he would not want intubated if he would get worse (3) Paroxysmal SVT (supraventricular tachycardia): happened on 09/23 at 1245, only lasted for 4 minutes, rates 150's Started Lopressor 12.5mg BID, no further issues no symptoms (4) Acute kidney failure: Unknown baseline. Requested notes from his primary care provider regarding prior labs, medical conditions, medications, and past medical history. Suspect prerenal due to hypotension on admission in setting of antihypertensive use. - continue to hold lisinopril and hydrochlorothiazide - Creatinine is normal at 0.9, BUN is 56 used Lasix for 4 days to help remove some excess volume -Okay to restart HCTZ (5) Diabetes: A1c was 6.5% this admission. - continue Novolog SS on dexamethasone monitor for hypoglycemia, no episodes -Holding home glipizide (6) Diarrhea: Suspect secondary to COVID-19 as above. C. diff negative on 09/14. Now resolved - Imodium PRN -no further bleeding, will closely monitor, resumed Heparin SC (7) Acute hypotension: Secondary to anti-hypertensives in the setting of diarrhea and dehydration. - Management as above for IZABELLA Blood pressures are now normal continue to hold lisinopril but will restart HCTZ started low dose Lopressor 12.5mg BID for SVT (8) Hypertension: - As above Continue home aspirin as well (9) Hypercholesterolemia: - Continue ezetimibe and fenofibrate. Unclear why the patient is not on a statin. (10) Peripheral artery disease: Exact details of this unclear. Patient mentions possible stent. - Continue aspirin 81 mg p.o. daily, clopidogrel 75 mg p.o. daily, ezetimibe 10 mg p.o. daily -Fenofibrate is on hold (11) Hyperkalemia: Potassium mildly elevated at 5.3. It was elevated earlier in the stay. We will change to low potassium diet Restart home HCTZ Follow BMP in the morning -Also receiving insulin which will help drive down potassium -Consider Kayexalate but just had resolved diarrhea from Covid-do not want to dehydrate him (12) DVT prophylaxis: Heparin SQ SCDs Disposition-continued stay in Covid unit as his oxygenation is not improved from yesterday although he is beyond the time where he could come off Covid precautions. Will reconsider this tomorrow. Continued stay on telemetry Admission and Anticipated Discharge Date Admission Date: September 13, 2020 Subjective Patient is tearful today and is frustrated about having to remain in the hospital. He had been on 9 l nasal cannula this morning, but was bumped up to 11 L by midday. He is eating and drinking, denies chest pain or shortness of breath. He was out of bed to chair today for meals. Telemetry with sinus arrhythmia, PVCs, normal sinus rhythm with rates in the 50s to 80s. Review of Systems Review of Systems: All systems reviewed & are unremarkable except as noted in HPI & below Physical Exam Constitutional: WD/WN, vitals as above Eyes: + anicteric sclerae Neck: trachea midline, no thyromegaly Respiratory: normal respiratory effort Auscultation: + crackles (Bibasilar); no diminished lung sounds and no wheezes Cardiovascular: RRR, no murmur, no edema Chest (Breasts): Chest: normal inspection of chest Gastrointestinal (Abdomen): normal bowel sounds, soft, nontender, no hepatosplenomegaly Musculoskeletal: Extremities: extremities normal to inspection; no cyanosis and no clubbing Skin: no rashes, warm and dry Neurologic: moves all extremities and awake; no focal motor deficits Psychiatric: Orientation: alert, oriented x 3 and cooperative Eye Contact: good eye contact Speech: normal rate/rhythm/volume of speech Affect: + tearful affect Genitourinary: Guzmán catheter in place with very slightly pink-tinged urine in the tubing Lymphatic: no lymphedema Results & Data Results & Data ([facility]) Vital Signs (Past 12 Hours) Vital Signs Temp Pulse Pulse Resp BP Pulse Ox 09/29/20 14:53 36.6 C 69 20 124/71 98 09/29/20 11:13 36.6 C 78 22 129/67 93 09/29/20 08:00 58 L 09/29/20 07:22 62 22 132/66 91 09/29/20 07:19 64 18 91 09/29/20 06:00 53 L 95 09/29/20 05:00 56 L 94 Laboratory Results 09/29/20 09/29/20 09/29/20 Range/Units 16:31 11:10 07:21 WBC (4.8-10.8) K/uL RBC (4.7-6.1) M/uL Hgb (14.0-18.0) g/dL Hct (42-52) % MCV (80-100) fL MCH (25-34) pg MCHC (32-36) g/dL RDW Std Deviation (36.4-46.3) fL RDW Coeff of Lexy (11.5-14.5) % Plt Count (130-400) K/uL MPV (7.4-10.4) fL Immature Gran % (Auto) % Neut % (Auto) % Lymph % (Auto) % Hale % (Auto) % Eos % (Auto) % Baso % (Auto) % Neut # (Auto) (1.4-6.5) K/uL Lymph # (Auto) (1.2-3.4) K/uL Hale # (Auto) (0.11-0.59) K/uL Eos # (Auto) (0-0.5) K/uL Baso # (Auto) (0-0.2) K/uL Immature Gran # (Auto) (0.00-0.02) K/uL Sodium (136-145) mmol/L Potassium (3.5-5.1) mmol/L Chloride (98-107) mmol/L Carbon Dioxide (21-32) mmol/L Anion Gap (3-11) BUN (7-18) mg/dl Creatinine (0.6-1.4) mg/dl Est Cr Clr Drug Dosing ml/min Est GFR ( Amer) Est GFR (Non-Af Amer) BUN/Creatinine Ratio (10-20) Glucose (70-99) mg/dl POC Glucose 123 H 235 H 83 (70-99) mg/dl Calcium (8.5-10.1) mg/dl Total Bilirubin (0.2-1) mg/dl AST (15-37) U/L ALT (12-78) U/L Alkaline Phosphatase (45-117) U/L C-Reactive Protein (0-0.29) mg/dl Total Protein (6.4-8.2) gm/dl Albumin (3.4-5.0) gm/dl Globulin (2.5-4.0) gm/dl Albumin/Globulin Ratio (0.9-2) 09/29/20 09/29/20 09/28/20 Range/Units 06:02 06:02 20:07 WBC 11.95 H (4.8-10.8) K/uL RBC 3.98 L (4.7-6.1) M/uL Hgb 12.9 L (14.0-18.0) g/dL Hct 38.9 L (42-52) % MCV 97.7 (80-100) fL MCH 32.4 (25-34) pg MCHC 33.2 (32-36) g/dL RDW Std Deviation 50.4 H (36.4-46.3) fL RDW Coeff of Lexy 14.2 (11.5-14.5) % Plt Count 203 (130-400) K/uL MPV 9.8 (7.4-10.4) fL Immature Gran % (Auto) 3.9 % Neut % (Auto) 77.3 % Lymph % (Auto) 12.6 % Hale % (Auto) 5.9 % Eos % (Auto) 0.1 % Baso % (Auto) 0.2 % Neut # (Auto) 9.24 H (1.4-6.5) K/uL Lymph # (Auto) 1.51 (1.2-3.4) K/uL Hale # (Auto) 0.70 H (0.11-0.59) K/uL Eos # (Auto) 0.01 (0-0.5) K/uL Baso # (Auto) 0.02 (0-0.2) K/uL Immature Gran # (Auto) 0.47 H (0.00-0.02) K/uL Sodium 139 (136-145) mmol/L Potassium 5.3 H D (3.5-5.1) mmol/L Chloride 108 H (98-107) mmol/L Carbon Dioxide 29 (21-32) mmol/L Anion Gap 2.0 L (3-11) BUN 39 H (7-18) mg/dl Creatinine 0.90 (0.6-1.4) mg/dl Est Cr Clr Drug Dosing 73.5 ml/min Est GFR ( Amer) 96.5 Est GFR (Non-Af Amer) 83.3 BUN/Creatinine Ratio 43.3 H (10-20) Glucose 93 (70-99) mg/dl POC Glucose 208 H (70-99) mg/dl Calcium 9.0 (8.5-10.1) mg/dl Total Bilirubin 0.7 (0.2-1) mg/dl AST 25 (15-37) U/L ALT 56 (12-78) U/L Alkaline Phosphatase 55 (45-117) U/L C-Reactive Protein 1.11 H (0-0.29) mg/dl Total Protein 6.0 L (6.4-8.2) gm/dl Albumin 2.2 L (3.4-5.0) gm/dl Globulin 3.8 (2.5-4.0) gm/dl Albumin/Globulin Ratio 0.6 L (0.9-2) PG Care Time/CCT Total # of Minutes Spent Total Time Spent with Patient: Total time spent is greater than 50% in coordination of care (as documented) at patient's floor/unit and/or counseling patient: Coding Level of Care Code 98640 Subseq Hosp Care Lvl 3 Diagnoses COVID-19 U07.1 Acute respiratory failure with hypoxia J96.01 Paroxysmal SVT (supraventricular tachycardia) I47.1 Acute kidney failure N17.9 Acute renal failure type: unspecified Diabetes E11.9 Diarrhea A09 Diarrhea type: infectious Acute hypotension I95.9 Hypertension I10 Hypercholesterolemia E78.00 Peripheral artery disease I73.9 Hyperkalemia E87.5 DVT prophylaxis Z29.9 (1) Acute kidney failure Acute renal failure type: unspecified Qualified Code(s): N17.9 - Acute kidney failure, unspecified (2) Diarrhea Diarrhea type: infectious Qualified Code(s): A09 - Infectious gastroenteritis and colitis, unspecified
[2020-09-29] MEDS: traZODone HCL 100 MG TAB PO SCH (20:45)
[2020-09-30 06:40] LABS: BUN Creatinine Ratio 44.9 (10-20); Calcium 8.8 mg/dl (8.5-10.1); Creatinine Clr Calc Pharmacy 76.7 ml/min; Est GFR (African American) 98.3; Est GFR (Non-African American) 84.8; Potassium 4.9 mmol/L (3.5-5.1)
[2020-09-30] MEDS: BUDESONIDE 0.5 MG/2 ML VIAL (PULMICORT) NEB SCH ×2 (07:20→19:26)
[2020-09-30] MEDS: dexAMETHasone 10 MG in SYRINGE 0 ML IV SCH (08:38)
[2020-09-30] MEDS: EZETIMIBE 10 MG TABLET PO SCH (08:38)
[2020-09-30] MEDS: HEPARIN SOD 5,000 UNIT/0.5 ML VIAL SQ SCH ×2 (08:38→21:18)
[2020-09-30] MEDS: ASPIRIN 81 MG ECTAB PO SCH (08:38)
[2020-09-30] MEDS: hydroCHLOROthiazide 25 MG TAB PO SCH (08:39)
[2020-09-30] MEDS: CLOPIDOGREL BISULFATE 75 MG TAB PO SCH (08:39)
[2020-09-30] MEDS: INSULIN ASPART 100 UNITS/ML 3 ML PEN SC SCH ×4 (08:41→21:29)
[2020-09-30] MEDS: METOPROLOL TARTRATE 25 MG TAB PO SCH ×2 (09:49→21:18)
--- NOTE | 2020-09-30 14:59 | Hospitalist Progress Note ---
Date of Service September 30, 2020 Assessment & Plan (1) COVID-19: evidence of COVID pneumonia on chest imaging - completed 10 days of dexamethasone 6mg daily since he was still on high flow nasal cannula after 10 days, will treat for late ARDS with dexamethasone 20mg IV daily x 5 days then 10mg IV daily x 5 days Completed 5 days of 20mg IV daily and now on 10mg IV since 09/29-last day of treatment will be 10/03 CRP down to 1.1 but was as high as 16.7 on 09/18--> so inflammation is going down - Encourage self proning but he cannot do this due to back pain, encouraged him to lay on his side -Continue incentive spirometry which is at the bedside - Patient continues to require high flow oxygen at 15 L-switch back to Vapotherm today to give some PEEP He is very frustrated-gave encouragement with goal to get out of the hospital by the end of the week will probably need rehab, PT/OT consulted continue to try to wean as tolerated and complete the high dose Decadron protocol (2) Acute respiratory failure with hypoxia: slowly starting to improve, as above was on Vapotherm for over a week, on Monday was 40L and 70% FiO2 on 09/26 got him down to 15L wall high flow at which he remains-switch back to Vapotherm today continue to wean as tolerated he cannot lay prone, multiple discussions held to try this discussed code status on 09/26, he said he would not want intubated if he would get worse (3) Paroxysmal SVT (supraventricular tachycardia): happened on 09/23 at 1245, only lasted for 4 minutes, rates 150's Started Lopressor 12.5mg BID, no further issues no symptoms (4) Acute kidney failure: Unknown baseline. Requested notes from his primary care provider regarding prior labs, medical conditions, medications, and past medical history. Suspect prerenal due to hypotension on admission in setting of antihypertensive use. - continue to hold lisinopril and hydrochlorothiazide - Creatinine is normal at 0.9, BUN is 56 used Lasix for 4 days to help remove some excess volume -Have since restarted HCTZ (5) Diabetes: A1c was 6.5% this admission. - continue Novolog SS on dexamethasone monitor for hypoglycemia, no episodes -Holding home glipizide (6) Diarrhea: Suspect secondary to COVID-19 as above. C. diff negative on 09/14. Now resolved - Imodium PRN -no further bleeding, will closely monitor, have since resumed Heparin SC (7) Acute hypotension: Secondary to anti-hypertensives in the setting of diarrhea and dehydration. - Management as above for IZABELLA Blood pressures are now normal continue to hold lisinopril but will restart HCTZ started low dose Lopressor 12.5mg BID for SVT (8) Hypertension: - As above Continue home aspirin as well (9) Hypercholesterolemia: - Continue ezetimibe and fenofibrate. Unclear why the patient is not on a statin. (10) Peripheral artery disease: Exact details of this unclear. Patient mentions possible stent. - Continue aspirin 81 mg p.o. daily, clopidogrel 75 mg p.o. daily, ezetimibe 10 mg p.o. daily -Fenofibrate is on hold (11) Hyperkalemia: Potassium mildly elevated at 5.3 and now improved back to normal after restarting HCTZ -Continue low potassium diet Continue HCTZ Follow BMP in the morning -Also receiving insulin which will help drive down potassium (12) DVT prophylaxis: Heparin SQ SCDs Disposition-continued stay in Covid unit as his oxygenation is not improved from yesterday although he is beyond the time where he could come off Covid p recautions. Will reconsider this tomorrow. Continued stay on telemetry Admission and Anticipated Discharge Date Admission Date: September 13, 2020 Subjective Patient reports feeling okay today, he was out of bed but is now back in bed and trying to lie on his side. His pulse ox was 94-97% on 15 L high flow nasal cannula when I saw him. I asked the nurse to have respiratory therapy place him on the Vapotherm to see if this would help him better. He denies feeling short of breath. Is eating and drinking. Pulse ox did dip down to 84% this morning and he was bumped up on his high flow nasal cannula. Telemetry with sinus arrhythmia and normal sinus rhythm with rates in the 50s to low 100s. Review of Systems Review of Systems: All systems reviewed & are unremarkable except as noted in HPI & below Physical Exam Constitutional: WD/WN, vitals as above Eyes: + anicteric sclerae Neck: trachea midline, no thyromegaly Respiratory: normal respiratory effort Auscultation: + crackles (Bibasilar); no diminished lung sounds and no wheezes Cardiovascular: RRR, no murmur, no edema Chest (Breasts): Chest: normal inspection of chest Gastrointestinal (Abdomen): normal bowel sounds, soft, nontender, no hepatosplenomegaly Musculoskeletal: Extremities: extremities normal to inspection; no cyanosis and no clubbing Skin: no rashes, warm and dry Neurologic: moves all extremities and awake; no focal motor deficits Psychiatric: A+Ox3, euthymic affect Orientation: cooperative Lymphatic: no lymphedema Results & Data Results & Data ([facility]) Vital Signs (Past 12 Hours) Vital Signs Temp Pulse Pulse Resp BP BP BP 09/30/20 11:12 36.7 C 86 18 110/59 L 09/30/20 07:50 111/71 09/30/20 07:24 36.5 C 69 18 95/75 L 09/30/20 07:20 66 18 09/30/20 06:00 64 09/30/20 05:00 59 L 09/30/20 04:00 60 09/30/20 03:17 67 119/73 09/30/20 03:15 36.6 C 67 20 119/73 09/30/20 03:00 59 L Pulse Ox 09/30/20 11:12 95 09/30/20 07:50 09/30/20 07:24 94 09/30/20 07:20 94 09/30/20 06:00 87 L 09/30/20 05:00 94 09/30/20 04:00 93 09/30/20 03:17 95 09/30/20 03:15 95 09/30/20 03:00 95 Laboratory Results 09/29/20 06:02 09/30/20 05:43 PG Care Time/CCT Total # of Minutes Spent Total Time Spent with Patient: Total time spent is greater than 50% in coordination of care (as documented) at patient's floor/unit and/or counseling patient: Coding Level of Care Code 89545 Subseq Hosp Care Lvl 3 Diagnoses COVID-19 U07.1 Acute respiratory failure with hypoxia J96.01 Paroxysmal SVT (supraventricular tachycardia) I47.1 Acute kidney failure N17.9 Acute renal failure type: unspecified Diabetes E11.9 Diarrhea A09 Diarrhea type: infectious Acute hypotension I95.9 Hypertension I10 Hypercholesterolemia E78.00 Peripheral artery disease I73.9 Hyperkalemia E87.5 DVT prophylaxis Z29.9 (1) Acute kidney failure Acute renal failure type: unspecified Qualified Code(s): N17.9 - Acute kidney failure, unspecified (2) Diarrhea Diarrhea type: infectious Qualified Code(s): A09 - Infectious gastroenteritis and colitis, unspecified
[2020-09-30] MEDS: traZODone HCL 100 MG TAB PO SCH (21:18)
[2020-09-30] MEDS: ACETAMINOPHEN 325 MG TAB PO PRN (21:21)
[2020-10-01 06:37] LABS: Hemoglobin 12.6 g/dL (14.0-18.0); Mean Corpuscular Hemoglobin 32.9 pg (25-34); Mean Corpuscular Hgb Conc 34.1 g/dL (32-36); Mean Corpuscular Volume 96.6 fL (80-100); Mean Platelet Volume 10.1 fL (7.4-10.4); Platelet Count 199 K/uL (130-400); RDW Coefficient of Variation 14.6 % (11.5-14.5); RDW Standard Deviation 50.4 fL (36.4-46.3); Red Blood Count 3.83 M/uL (4.7-6.1); White Blood Count 10.89 K/uL (4.8-10.8)
[2020-10-01] MEDS: BUDESONIDE 0.5 MG/2 ML VIAL (PULMICORT) NEB SCH ×2 (07:19→19:53)
[2020-10-01] MEDS: INSULIN ASPART 100 UNITS/ML 3 ML PEN SC SCH ×4 (08:10→20:53)
[2020-10-01] MEDS: ASPIRIN 81 MG ECTAB PO SCH (08:44)
[2020-10-01] MEDS: CLOPIDOGREL BISULFATE 75 MG TAB PO SCH (08:45)
[2020-10-01] MEDS: dexAMETHasone 10 MG in SYRINGE 0 ML IV SCH (08:45)
[2020-10-01] MEDS: HEPARIN SOD 5,000 UNIT/0.5 ML VIAL SQ SCH ×2 (08:46→20:52)
[2020-10-01] MEDS: EZETIMIBE 10 MG TABLET PO SCH (08:46)
[2020-10-01] MEDS: hydroCHLOROthiazide 25 MG TAB PO SCH (08:49)
[2020-10-01] MEDS: METOPROLOL TARTRATE 25 MG TAB PO SCH ×2 (08:50→20:52)
--- NOTE | 2020-10-01 19:30 | Hospitalist Progress Note ---
Date of Service October 01, 2020 Assessment & Plan (1) COVID-19: evidence of COVID pneumonia on chest imaging - completed 10 days of dexamethasone 6mg daily since he was still on high flow nasal cannula after 10 days, will treat for late ARDS with dexamethasone 20mg IV daily x 5 days then 10mg IV daily x 5 days Completed 5 days of 20mg IV daily and now on 10mg IV since 09/29-last day of treatment will be 10/03 CRP down to 1.1 but was as high as 16.7 on 09/18--> so inflammation is going down -Has not able to prone due to back pain, encouraged him to lay on his side -Continue incentive spirometry which is at the bedside -Has been on Vapotherm and high flow nasal cannula 15 L for many days, finally weaned down to 6 L nasal cannula on 10/01-improving He is very frustrated-gave encouragement with goal to get out of the hospital by the end of the week PT/OT consulted, but family wants him to come home with 02/01 care continue to try to wean as tolerated and complete the high dose Decadron protocol (2) Acute respiratory failure with hypoxia: Long slow recovery but finally improving was on Vapotherm for over a week, on Monday was 40L and 70% FiO2 on 09/26 got him down to 15L wall high flow at which he remains-switch back to Vapotherm today continue to wean as tolerated he cannot lay prone, multiple discussions held to try this discussed code status on 09/26, he said he would not want intubated if he would get worse (3) Paroxysmal SVT (supraventricular tachycardia): happened on 09/23 at 1245, only lasted for 4 minutes, rates 150's Started Lopressor 12.5mg BID, no further issues no symptoms (4) Acute kidney failure: Unknown baseline. Requested notes from his primary care provider regarding prior labs, medical conditions, medications, and past medical history. Suspect prerenal due to hypotension on admission in setting of antihypertensive use. - continue to hold lisinopril and hydrochlorothiazide - Creatinine is normal at 0.9, BUN is 56 used Lasix for 4 days to help remove some excess volume -Have since restarted HCTZ -Need to remove Guzmán catheter in the morning (5) Diabetes: A1c was 6.5% this admission. glucose controlled here - continue Novolog SS on dexamethasone monitor for hypoglycemia, no episodes -Holding home glipizide (6) Diarrhea: Suspect secondary to COVID-19 as above. C. diff negative on 09/14. Now resolved - Imodium PRN -no further bleeding, will closely monitor, have since resumed Heparin SC (7) Acute hypotension: Secondary to anti-hypertensives in the setting of diarrhea and dehydration. - Management as above for IZABELLA Blood pressures are now normal continue to hold lisinopril but have restarted HCTZ started low dose Lopressor 12.5mg BID for SVT (8) Hypertension: - As above Continue home aspirin as well (9) Hypercholesterolemia: - Continue ezetimibe and fenofibrate. Unclear why the patient is not on a statin. (10) Peripheral artery disease: Exact details of this unclear. Patient mentions possible stent. - Continue aspirin 81 mg p.o. daily, clopidogrel 75 mg p.o. daily, ezetimibe 10 mg p.o. daily -Fenofibrate is on hold (11) Hyperkalemia: Potassium mildly elevated at 5.3 and now improved back to normal after restarting HCTZ -Continue low potassium diet Continue HCTZ Follow BMP in the morning -Also receiving insulin which will help drive down potassium (12) DVT prophylaxis: Heparin SQ SCDs Disposition-continued stay in Covid unit; he is beyond the time where he could come off Covid precautions but was not showing signs of improvement for the last few days. Now that he is improving with his oxygenation, can likely transition out of Covid unit by tomorrow Continued stay on telemetry Admission and Anticipated Discharge Date Admission Date: September 13, 2020 Subjective Patient doing much better today, is weaned down to 6 L nasal cannula. Denies any shortness of breath. He has been getting out of bed to chair for all meals. He is eating and drinking, moving his bowels. Telemetry with normal sinus rhythm with rates in the 60s 100s Review of Systems Review of Systems: All systems reviewed & are unremarkable except as noted in HPI & below Physical Exam Constitutional: WD/WN, vitals as above Eyes: + anicteric sclerae Neck: trachea midline, no thyromegaly Respiratory: normal respiratory effort Auscultation: + crackles (Bibasilar); no diminished lung sounds and no wheezes Cardiovascular: RRR, no murmur, no edema Chest (Breasts): Chest: normal inspection of chest Gastrointestinal (Abdomen): normal bowel sounds, soft, nontender, no hepatosplenomegaly Musculoskeletal: Extremities: extremities normal to inspection; no cyanosis and no clubbing Skin: no rashes, warm and dry Neurologic: moves all extremities and awake; no focal motor deficits Psychiatric: A+Ox3, euthymic affect Orientation: cooperative Genitourinary: Guzmán catheter remains in place draining clear yellow urine Lymphatic: no lymphedema Results & Data Results & Data ([facility]) Vital Signs (Past 12 Hours) Vital Signs Temp Pulse Pulse Resp BP Pulse Ox 10/01/20 17:06 36.4 C L 72 18 119/68 93 10/01/20 11:57 36.9 C 74 18 110/66 91 10/01/20 07:43 36.5 C 70 20 104/55 L 95 Laboratory Results 10/01/20 10/01/20 10/01/20 Range/Units 17:15 11:54 07:41 WBC (4.8-10.8) K/uL RBC (4.7-6.1) M/uL Hgb (14.0-18.0) g/dL Hct (42-52) % MCV (80-100) fL MCH (25-34) pg MCHC (32-36) g/dL RDW Std Deviation (36.4-46.3) fL RDW Coeff of Lexy (11.5-14.5) % Plt Count (130-400) K/uL MPV (7.4-10.4) fL POC Glucose 130 H 191 H 93 (70-99) mg/dl 10/01/20 09/30/20 Range/Units 05:52 20:21 WBC 10.89 H (4.8-10.8) K/uL RBC 3.83 L (4.7-6.1) M/uL Hgb 12.6 L (14.0-18.0) g/dL Hct 37.0 L (42-52) % MCV 96.6 (80-100) fL MCH 32.9 (25-34) pg MCHC 34.1 (32-36) g/dL RDW Std Deviation 50.4 H (36.4-46.3) fL RDW Coeff of Lexy 14.6 H (11.5-14.5) % Plt Count 199 (130-400) K/uL MPV 10.1 (7.4-10.4) fL POC Glucose 195 H (70-99) mg/dl PG Care Time/CCT Total # of Minutes Spent Total Time Spent with Patient: Total time spent is greater than 50% in coordination of care (as documented) at patient's floor/unit and/or counseling patient: Coding Level of Care Code 27070 Subseq Hosp Care Lvl 3 Diagnoses COVID-19 U07.1 Acute respiratory failure with hypoxia J96.01 Paroxysmal SVT (supraventricular tachycardia) I47.1 Acute kidney failure N17.9 Acute renal failure type: unspecified Diabetes E11.9 Diarrhea A09 Diarrhea type: infectious Acute hypotension I95.9 Hypertension I10 Hypercholesterolemia E78.00 Peripheral artery disease I73.9 Hyperkalemia E87.5 DVT prophylaxis Z29.9 (1) Acute kidney failure Acute renal failure type: unspecified Qualified Code(s): N17.9 - Acute kidney failure, unspecified (2) Diarrhea Diarrhea type: infectious Qualified Code(s): A09 - Infectious gastroenteritis and colitis, unspecified
[2020-10-01] MEDS: traZODone HCL 100 MG TAB PO SCH (20:53)
[2020-10-02 06:15] LABS: Basophils # (auto) 0.03 K/uL (0-0.2); Basophils % (auto) 0.2 %; Eosinophils # (auto) 0.05 K/uL (0-0.5); Eosinophils % (auto) 0.4 %; Hematocrit (blood only) 38.3 % (42-52); Hemoglobin 13.3 g/dL (14.0-18.0); Immature Granulocytes # (auto) 0.62 K/uL (0.00-0.02); Immature Granulocytes % (auto) 4.8 %; Lymphocytes % (auto) 21.6 %; Mean Corpuscular Hemoglobin 33.3 pg (25-34); Mean Corpuscular Hgb Conc 34.7 g/dL (32-36); Mean Platelet Volume 9.8 fL (7.4-10.4); Monocytes # (auto) 0.87 K/uL (0.11-0.59); Monocytes % (auto) 6.7 %; Neutrophils # (auto) 8.59 K/uL (1.4-6.5); Neutrophils % (auto) 66.3 %; Platelet Count 241 K/uL (130-400); RDW Standard Deviation 51.3 fL (36.4-46.3); Red Blood Count 3.99 M/uL (4.7-6.1); White Blood Count 12.96 K/uL (4.8-10.8)
[2020-10-02 06:44] LABS: BUN Creatinine Ratio 43.2 (10-20); Calcium 8.4 mg/dl (8.5-10.1); Creatinine Clr Calc Pharmacy 70.8 ml/min; Est GFR (African American) 95.2; Est GFR (Non-African American) 82.2; Potassium 4.1 mmol/L (3.5-5.1)
[2020-10-02] MEDS: BUDESONIDE 0.5 MG/2 ML VIAL (PULMICORT) NEB SCH ×2 (07:06→19:40)
[2020-10-02] MEDS: METOPROLOL TARTRATE 25 MG TAB PO SCH ×2 (08:33→20:26)
[2020-10-02] MEDS: hydroCHLOROthiazide 25 MG TAB PO SCH (08:34)
[2020-10-02] MEDS: ASPIRIN 81 MG ECTAB PO SCH (08:35)
[2020-10-02] MEDS: HEPARIN SOD 5,000 UNIT/0.5 ML VIAL SQ SCH ×2 (08:35→20:27)
[2020-10-02] MEDS: EZETIMIBE 10 MG TABLET PO SCH (08:35)
[2020-10-02] MEDS: CLOPIDOGREL BISULFATE 75 MG TAB PO SCH (08:36)
[2020-10-02] MEDS: dexAMETHasone 10 MG in SYRINGE 0 ML IV SCH (08:36)
[2020-10-02] MEDS: INSULIN ASPART 100 UNITS/ML 3 ML PEN SC SCH ×4 (08:36→20:37)
--- NOTE | 2020-10-02 17:09 | Hospitalist Progress Note ---
Date of Service October 02, 2020 Assessment & Plan (1) COVID-19: evidence of COVID pneumonia on chest imaging - completed 10 days of dexamethasone 6mg daily since he was still on high flow nasal cannula after 10 days, will treat for late ARDS with dexamethasone 20mg IV daily x 5 days then 10mg IV daily x 5 days Completed 5 days of 20mg IV daily and now on 10mg IV since 09/29-last day of treatment will be 10/03 CRP down to 1.1 but was as high as 16.7 on 09/18--> so inflammation is going down -Has not able to prone due to back pain, encouraged him to lay on his side -Continue incentive spirometry which is at the bedside -Has been on Vapotherm and high flow nasal cannula 15 L for many days, finally weaned down to 6 L nasal cannula on 10/01 On 10/02, was back up to 15 L overnight, but now weaned back down again to 7 L nasal cannula He is very frustrated-gave encouragement with goal to get out of the hospital by the end of the week, but looking like it will be more into the early next week PT/OT consulted, but family wants him to come home with 02/01 care continue to try to wean as tolerated and complete the high dose Decadron protocol (2) Acute respiratory failure with hypoxia: Long slow recovery but finally improving was on Vapotherm for over a week , Now back and forth between wall high flow nasal cannula and Vapotherm Asked nurse to put him on Vapotherm if he requires 10 L or more of the wall high flow nasal cannula in order to provide some PEEP continue to wean as tolerated he cannot lay prone, multiple discussions held to try this discussed code status on 09/26, he said he would not want intubated if he would get worse (3) Paroxysmal SVT (supraventricular tachycardia): happened on 09/23 at 1245, only lasted for 4 minutes, rates 150's Started Lopressor 12.5mg BID, no further issues no symptoms (4) Acute kidney failure: Unknown baseline. Requested notes from his primary care provider regarding prior labs, medical conditions, medications, and past medical history. Suspect prerenal due to hypotension on admission in setting of antihypertensive use. - continue to hold lisinopril, but have since restarted HCTZ - Creatinine is normal at 0.9, BUN is 56 Guzmán catheter discontinued, trial of void, bladder scan every shift (5) Diabetes: A1c was 6.5% this admission. glucose controlled here - continue Novolog SS on dexamethasone monitor for hypoglycemia, no episodes -Holding home glipizide (6) Diarrhea: Suspect secondary to COVID-19 as above. C. diff negative on 09/14. Now resolved - Imodium PRN -no further bleeding, will closely monitor, have since resumed Heparin SC (7) Acute hypotension: Secondary to anti-hypertensives in the setting of diarrhea and dehydration. - Management as above for IZABELLA Blood pressures are now normal continue to hold lisinopril but have restarted HCTZ started low dose Lopressor 12.5mg BID for SVT (8) Hypertension: - As above Continue home aspirin as well (9) Hypercholesterolemia: - Continue ezetimibe and fenofibrate. Unclear why the patient is not on a statin. (10) Peripheral artery disease: Exact details of this unclear. Patient mentions possible stent. - Continue aspirin 81 mg p.o. daily, clopidogrel 75 mg p.o. daily, ezetimibe 10 mg p.o. daily -Fenofibrate is on hold (11) Hyperkalemia: Potassium mildly elevated at 5.3 and now improved back to normal after restarting HCTZ -Can get rid of low potassium diet Continue HCTZ Follow BMP in the morning -Also receiving insulin which will help drive down potassium (12) DVT prophylaxis: Heparin SQ SCDs Disposition-Continued stay on telemetry, but can discontinue Covid precautions a s he is improving and has had Covid now for several weeks Admission and Anticipated Discharge Date Admission Date: September 13, 2020 Subjective Patient reports feeling fairly well today, still little shortness of breath. He was back up to 15 L nasal cannula overnight and is now weaned back down to 7-8 L nasal cannula. He has been out of bed to chair for all his meals. He again reiterates that he just wants to go home. Telemetry with sinus arrhythmia with PACs with rates in the 60s to 70s Review of Systems Review of Systems: All systems reviewed & are unremarkable except as noted in HPI & below No diarrhea or constipation Guzmán catheter remains in place and he is excepting of having to remove it Physical Exam Constitutional: WD/WN, vitals as above Eyes: + anicteric sclerae Neck: trachea midline, no thyromegaly Respiratory: normal respiratory effort Auscultation: + crackles (Bibasilar); no diminished lung sounds and no wheezes Cardiovascular: RRR, no murmur, no edema Chest (Breasts): Chest: normal inspection of chest Gastrointestinal (Abdomen): normal bowel sounds, soft, nontender, no hepatosplenomegaly Musculoskeletal: Extremities: extremities normal to inspection; no cyanosis and no clubbing Skin: no rashes, warm and dry Neurologic: moves all extremities and awake; no focal motor deficits Psychiatric: A+Ox3, euthymic affect Lymphatic: no lymphedema Results & Data Results & Data ([facility]) Vital Signs (Past 12 Hours) Vital Signs Temp Pulse Pulse Resp BP BP Pulse Ox 10/02/20 16:00 61 10/02/20 15:38 36.6 C 79 18 128/77 89 L 10/02/20 14:46 94 10/02/20 11:21 36.4 C L 82 18 116/69 93 10/02/20 08:46 105/57 L 10/02/20 08:00 36.4 C L 61 85 19 94/56 L 88 L 10/02/20 07:06 66 18 89 L Laboratory Results 10/02/20 10/02/20 10/02/20 Range/Units 17:00 11:18 07:59 WBC (4.8-10.8) K/uL RBC (4.7-6.1) M/uL Hgb (14.0-18.0) g/dL Hct (42-52) % MCV (80-100) fL MCH (25-34) pg MCHC (32-36) g/dL RDW Std Deviation (36.4-46.3) fL RDW Coeff of Lexy (11.5-14.5) % Plt Count (130-400) K/uL MPV (7.4-10.4) fL Immature Gran % (Auto) % Neut % (Auto) % Lymph % (Auto) % Jennings % (Auto) % Eos % (Auto) % Baso % (Auto) % Neut # (Auto) (1.4-6.5) K/uL Lymph # (Auto) (1.2-3.4) K/uL Jennings # (Auto) (0.11-0.59) K/uL Eos # (Auto) (0-0.5) K/uL Baso # (Auto) (0-0.2) K/uL Immature Gran # (Auto) (0.00-0.02) K/uL Sodium (136-145) mmol/L Potassium (3.5-5.1) mmol/L Chloride (98-107) mmol/L Carbon Dioxide (21-32) mmol/L Anion Gap (3-11) BUN (7-18) mg/dl Creatinine (0.6-1.4) mg/dl Est Cr Clr Drug Dosing ml/min Est GFR ( Amer) Est GFR (Non-Af Amer) BUN/Creatinine Ratio (10-20) Glucose (70-99) mg/dl POC Glucose 113 H 212 H 108 H (70-99) mg/dl Calcium (8.5-10.1) mg/dl 10/02/20 10/02/20 10/01/20 Range/Units 05:39 05:39 20:42 WBC 12.96 H (4.8-10.8) K/uL RBC 3.99 L (4.7-6.1) M/uL Hgb 13.3 L (14.0-18.0) g/dL Hct 38.3 L (42-52) % MCV 96.0 (80-100) fL MCH 33.3 (25-34) pg MCHC 34.7 (32-36) g/dL RDW Std Deviation 51.3 H (36.4-46.3) fL RDW Coeff of Lexy 15.0 H (11.5-14.5) % Plt Count 241 (130-400) K/uL MPV 9.8 (7.4-10.4) fL Immature Gran % (Auto) 4.8 % Neut % (Auto) 66.3 % Lymph % (Auto) 21.6 % Jennings % (Auto) 6.7 % Eos % (Auto) 0.4 % Baso % (Auto) 0.2 % Neut # (Auto) 8.59 H (1.4-6.5) K/uL Lymph # (Auto) 2.80 (1.2-3.4) K/uL Jennings # (Auto) 0.87 H (0.11-0.59) K/uL Eos # (Auto) 0.05 (0-0.5) K/uL Baso # (Auto) 0.03 (0-0.2) K/uL Immature Gran # (Auto) 0.62 H (0.00-0.02) K/uL Sodium 137 (136-145) mmol/L Potassium 4.1 D (3.5-5.1) mmol/L Chloride 104 (98-107) mmol/L Carbon Dioxide 27 (21-32) mmol/L Anion Gap 6.0 (3-11) BUN 39 H (7-18) mg/dl Creatinine 0.91 (0.6-1.4) mg/dl Est Cr Clr Drug Dosing 70.8 ml/min Est GFR ( Amer) 95.2 Est GFR (Non-Af Amer) 82.2 BUN/Creatinine Ratio 43.2 H (10-20) Glucose 97 (70-99) mg/dl POC Glucose 170 H (70-99) mg/dl Calcium 8.4 L (8.5-10.1) mg/dl PG Care Time/CCT Total # of Minutes Spent Total Time Spent with Patient: Total time spent is greater than 50% in coordination of care (as documented) at patient's floor/unit and/or counseling patient: Coding Level of Care Code 29708 Subseq Hosp Care Lvl 3 Diagnoses COVID-19 U07.1 Acute respiratory failure with hypoxia J96.01 Paroxysmal SVT (supraventricular tachycardia) I47.1 Acute kidney failure N17.9 Acute renal failure type: unspecified Diabetes E11.9 Diarrhea A09 Diarrhea type: infectious Acute hypotension I95.9 Hypertension I10 Hypercholesterolemia E78.00 Peripheral artery disease I73.9 Hyperkalemia E87.5 DVT prophylaxis Z29.9 (1) Acute kidney failure Acute renal failure type: unspecified Qualified Code(s): N17.9 - Acute kidney failure, unspecified (2) Diarrhea Diarrhea type: infectious Qualified Code(s): A09 - Infectious gastroenteritis and colitis, unspecified
[2020-10-02] MEDS: traZODone HCL 100 MG TAB PO SCH (20:27)
[2020-10-03] MEDS: BUDESONIDE 0.5 MG/2 ML VIAL (PULMICORT) NEB SCH ×2 (07:14→19:13)
[2020-10-03] MEDS: METOPROLOL TARTRATE 25 MG TAB PO SCH ×2 (09:54→21:22)
[2020-10-03] MEDS: dexAMETHasone 10 MG in SYRINGE 0 ML IV SCH (09:54)
[2020-10-03] MEDS: CLOPIDOGREL BISULFATE 75 MG TAB PO SCH (09:55)
[2020-10-03] MEDS: EZETIMIBE 10 MG TABLET PO SCH (09:56)
[2020-10-03] MEDS: hydroCHLOROthiazide 25 MG TAB PO SCH (09:56)
[2020-10-03] MEDS: ASPIRIN 81 MG ECTAB PO SCH (09:56)
[2020-10-03] MEDS: HEPARIN SOD 5,000 UNIT/0.5 ML VIAL SQ SCH ×2 (09:57→21:13)
[2020-10-03] MEDS: INSULIN ASPART 100 UNITS/ML 3 ML PEN SC SCH ×4 (10:27→21:13)
--- NOTE | 2020-10-03 18:43 | Hospitalist Progress Note ---
Date of Service October 03, 2020 Assessment & Plan (1) COVID-19: evidence of COVID pneumonia on chest imaging - completed 10 days of dexamethasone 6mg daily since he was still on high flow nasal cannula after 10 days, will treat for late ARDS with dexamethasone 20mg IV daily x 5 days then 10mg IV daily x 5 days Completed 5 days of 20mg IV daily and now on 10mg IV since 09/29-last day of treatment will be 10/03 CRP down to 1.1 but was as high as 16.7 on 09/18--> so inflammation is going down -Has not able to prone due to back pain, encouraged him to lay on his side -Continue incentive spirometry which is at the bedside -Has been on Vapotherm and high flow nasal cannula 15 L for many days, finally weaned down to 6 L nasal cannula on 10/01 On 10/02, was back up to 15 L overnight, but now weaned back down again to 7 L nasal cannula On 10/03 back up to 15 L again in the morning and placed on Vapotherm at 30 L, 60% FiO2 with pulse ox now 96% Continues to be frustrated about his prolonged hospital stay-gave encouragement with goal to get out of the hospital by the end of the week, but looking like it will be more into the early next week PT/OT consulted, but family wants him to come home with 02/01 care Continue to wean from oxygen as able to (2) Acute respiratory failure with hypoxia: Long slow recovery but finally improving was on Vapotherm for over a week , Now back and forth between wall high flow nasal cannula and Vapotherm Asked nurse to put him on Vapotherm if he requires 10 L or more of the wall high flow nasal cannula in order to provide some PEEP continue to wean as tolerated he cannot lay prone, multiple discussions held to try this Continue incentive spirometry and flutter valve Continue budesonide nebulizers -No wheezing, bronchodilators not likely to help discussed code status on 09/26, he said he would not want intubated if he would get worse (3) Paroxysmal SVT (supraventricular tachycardia): happened on 09/23 at 1245, only lasted for 4 minutes, rates 150's Started Lopressor 12.5mg BID, no further issues no symptoms -Check TSH (4) Acute kidney failure: Unknown baseline. Requested notes from his primary care provider regarding prior labs, medical conditions, medications, and past medical history. Suspect prerenal due to hypotension on admission in setting of antihypertensive use. - continue to hold lisinopril, but have since restarted HCTZ - Creatinine is normal at 0.9, BUN is 56 Guzmán catheter discontinued, trial of void, bladder scan every shift (5) Diabetes: A1c was 6.5% this admission. glucose with some occasional hyperglycemia here due to steroids - continue Novolog SS Dexamethasone now discontinued monitor for hypoglycemia, no episodes -Holding home glipizide (6) Diarrhea: Suspect secondary to COVID-19 as above. C. diff negative on 09/14. Now resolved - Imodium PRN -no further bleeding, will closely monitor, have since resumed Heparin SC (7) Acute hypotension: Secondary to anti-hypertensives in the setting of diarrhea and dehydration. - Management as above for IZABELLA Blood pressures are now normal continue to hold lisinopril but have restarted HCTZ started low dose Lopressor 12.5mg BID for SVT (8) Hypertension: - As above Continue home aspirin as well (9) Hypercholesterolemia: - Continue ezetimibe and fenofibrate. Unclear why the patient is not on a statin. (10) Peripheral artery disease: Exact details of this unclear. Patient mentions possible stent. - Continue aspirin 81 mg p.o. daily, clopidogrel 75 mg p.o. daily, ezetimibe 10 mg p.o. daily -Fenofibrate is on hold (11) Hyperkalemia: Potassium mildly elevated at 5.3 and now improved back to normal after restarting HCTZ No further need for low potassium diet Continue HCTZ Follow BMP in the morning -Also receiving insulin which will help drive down potassium (12) DVT prophylaxis: Heparin SQ SCDs Disposition-Continued stay on telemetry, but have since discontinued Covid precautions as he is improving and has had Covid now for several weeks Admission and Anticipated Discharge Date Admission Date: September 13, 2020 Subjective Patient reports feeling tired, but he is out of bed to chair eating his dinner. He does not really feel too short of breath. He is able to ambulate from his bed to his chair. He denies any other new issues. This morning, he was at 14 L high flow nasal cannula and I requested that he be placed on Vapotherm which she has remained at throughout the day and pulse ox has improved Telemetry with sinus rhythm with PVCs and rates in the 70s Review of Systems Review of Systems: All systems reviewed & are unremarkable except as noted in HPI & below Physical Exam Constitutional: WD/WN, vitals as above Eyes: + anicteric sclerae Neck: trachea midline, no thyromegaly Respiratory: normal respiratory effort Auscultation: + crackles ( Bibasilar); no diminished lung sounds and no wheezes Cardiovascular: RRR, no murmur, no edema Extremities: no calf tenderness Chest (Breasts): Chest: normal inspection of chest Gastrointestinal (Abdomen): normal bowel sounds, soft, nontender, no hepatosplenomegaly Musculoskeletal: Extremities: extremities normal to inspection; no cyanosis and no clubbing Skin: no rashes, warm and dry Neurologic: moves all extremities and awake; no focal motor deficits Psychiatric: A+Ox3, euthymic affect Lymphatic: no lymphedema Results & Data Results & Data ([facility]) Vital Signs (Past 12 Hours) Vital Signs Temp Pulse Pulse Pulse Resp BP Pulse Ox 10/03/20 15:28 36.4 C L 95 H 18 132/71 96 10/03/20 15:02 102 H 23 92 10/03/20 15:00 83 10/03/20 11:44 36.4 C L 91 H 19 131/76 92 10/03/20 10:32 95 H 20 94 10/03/20 08:38 70 10/03/20 08:15 90 20 90 10/03/20 07:48 36.5 C 84 18 130/69 87 L 10/03/20 07:15 70 20 92 10/03/20 06:36 20 90 Laboratory Results 10/03/20 10/03/20 10/03/20 Range/Units 16:22 11:40 07:44 POC Glucose 194 H 186 H 112 H (70-99) mg/dl 10/02/20 Range/Units 19:44 POC Glucose 242 H (70-99) mg/dl PG Care Time/CCT Total # of Minutes Spent Total Time Spent with Patient: Total time spent is greater than 50% in coordination of care (as documented) at patient's floor/unit and/or counseling patient: Coding Level of Care Code 15910 Subseq Hosp Care Lvl 2 Diagnoses COVID-19 U07.1 Acute respiratory failure with hypoxia J96.01 Paroxysmal SVT (supraventricular tachycardia) I47.1 Acute kidney failure N17.9 Acute renal failure type: unspecified Diabetes E11.9 Diarrhea A09 Diarrhea type: infectious Acute hypotension I95.9 Hypertension I10 Hypercholesterolemia E78.00 Peripheral artery disease I73.9 Hyperkalemia E87.5 DVT prophylaxis Z29.9 (1) Acute kidney failure Acute renal failure type: unspecified Qualified Code(s): N17.9 - Acute kidney failure, unspecified (2) Diarrhea Diarrhea type: infectious Qualified Code(s): A09 - Infectious gastroenteritis and colitis, unspecified
[2020-10-03] MEDS: traZODone HCL 100 MG TAB PO SCH (21:23)
[2020-10-04 07:01] LABS: Hematocrit (blood only) 38.6 % (42-52); Hemoglobin 13.4 g/dL (14.0-18.0); Mean Corpuscular Hemoglobin 33.3 pg (25-34); Mean Corpuscular Hgb Conc 34.7 g/dL (32-36); Mean Platelet Volume 9.7 fL (7.4-10.4); Nucleated RBC # (auto) 0.06 K/uL (0-0); Nucleated RBC % (auto) 0.6 %; Platelet Count 207 K/uL (130-400); RDW Coefficient of Variation 15.3 % (11.5-14.5); RDW Standard Deviation 52.5 fL (36.4-46.3); Red Blood Count 4.02 M/uL (4.7-6.1); White Blood Count 10.41 K/uL (4.8-10.8)
[2020-10-04] MEDS: BUDESONIDE 0.5 MG/2 ML VIAL (PULMICORT) NEB SCH ×2 (07:15→19:56)
[2020-10-04 07:22] LABS: Albumin Level 2.5 gm/dl (3.4-5.0); BUN Creatinine Ratio 45.9 (10-20); C Reactive Protein 0.54 mg/dl (0-0.29); Creatinine Clr Calc Pharmacy 70.3 ml/min; Est GFR (Non-African American) 81.1; Magnesium 2.4 mg/dl (1.8-2.4); Potassium 4.4 mmol/L (3.5-5.1)
[2020-10-04 07:31] LABS: Albumin Globulin Ratio 0.7 (0.9-2); Bilirubin,Total 0.8 mg/dl (0.2-1); Globulin 3.7 gm/dl (2.5-4.0); Phosphorus 3.3 mg/dl (2.5-4.9); Thyroid Stimulating Hormone 1.69 uIu/ml (0.300-4.500); Total Protein 6.2 gm/dl (6.4-8.2)
[2020-10-04] MEDS: INSULIN ASPART 100 UNITS/ML 3 ML PEN SC SCH ×4 (08:25→20:59)
[2020-10-04] MEDS: METOPROLOL TARTRATE 25 MG TAB PO SCH ×2 (08:28→20:58)
[2020-10-04] MEDS: HEPARIN SOD 5,000 UNIT/0.5 ML VIAL SQ SCH ×2 (08:29→20:57)
[2020-10-04] MEDS: ASPIRIN 81 MG ECTAB PO SCH (08:29)
[2020-10-04] MEDS: hydroCHLOROthiazide 25 MG TAB PO SCH (08:30)
[2020-10-04] MEDS: CLOPIDOGREL BISULFATE 75 MG TAB PO SCH (08:30)
[2020-10-04] MEDS: EZETIMIBE 10 MG TABLET PO SCH (08:30)
--- NOTE | 2020-10-04 08:48 | XRay Report ---
XR chest 1V portable CLINICAL HISTORY: f/u COVID PNA, hypoxia COMPARISON STUDY: Chest radiograph September 22, 2020. FINDINGS: Lung volumes are normal. There is no pneumothorax or pleural effusion. There is no evidence for pulmonary edema. Cardiomediastinal silhouette is stable. Extent of the mid to lower lung airspac e opacities have slightly increased. IMPRESSION: Mild increase in extent of bilateral airspace opacities consistent with viral pneumonia. ACT 112: Negative or not required by law. Electronically signed by: Viraj Nichols M.D. 10/04/2020 8:47 AM
--- NOTE | 2020-10-04 14:11 | Hospitalist Progress Note ---
Date of Service October 04, 2020 Assessment & Plan (1) COVID-19: evidence of COVID pneumonia on chest imaging - completed 10 days of dexamethasone 6mg daily since he was still on high flow nasal cannula after 10 days, was treated for late ARDS with dexamethasone 20mg IV daily x 5 days then 10mg IV daily x 5 days- has completed course on 10/03 CRP down to 1.1 but was as high as 16.7 on 09/18--> so inflammation is going down -Has not able to prone due to back pain, encouraged him to lay on his side -Continue incentive spirometry which is at the bedside-encouraged -Has been on Vapotherm and high flow nasal cannula back and forth for many days, at one point was weaned down to 6 L nasal cannula on 10/01 On 10/02, was back up to 15 L overnight, but now weaned back down again to 7 L nasal cannula On 10/03 back up to 15 L again in the morning and placed on Vapotherm at 30 L, 60% FiO2 with pulse ox 96% 10/04 still on 10L wall HFNC, not SOB, getting from bed to chair and walking short distances in room Continues to be frustrated about his prolonged hospital stay-gave encouragement with goal to get out of the hospital by the end of the week, but looking like it will be more towards mid week Mon- PT/OT consulted, but family wants him to come home with 02/01 care CXR 10/04 with progressed bilateral infiltrates Continue to wean from oxygen as able to -will give IV lasix one dose today 10/03 to dry out lungs; has been back on home HCTZ x 3 days (2) Acute respiratory failure with hypoxia: Long slow recovery but finally improving was on Vapotherm for over a week , Now back and forth between wall high flow nasal cannula and Vapotherm Asked nurse to put him on Vapotherm if he requires 10 L or more of the wall high flow nasal cannula in order to provide some PEEP continue to wean as tolerated he cannot lay prone, multiple discussions held to try this Continue incentive spirometry and flutter valve Continue budesonide nebulizers -No wheezing, bronchodilators not likely to help discussed code status on 09/26, he said he would not want intubated if he would get worse (3) Paroxysmal SVT (supraventricular tachycardia): happened on 09/23 at 1245, only lasted for 4 minutes, rates 150's Started Lopressor 12.5mg BID, no further issues no symptoms TSH normal (4) Acute kidney failure: Unknown baseline. Requested notes from his primary care provider regarding prior labs, medical conditions, medications, and past medical history. Suspect prerenal due to hypotension on admission in setting of antihypertensive use. - continue to hold lisinopril, but have since restarted HCTZ - Creatinine is normal at 0.9, BUN is 56 Guzmán catheter discontinued, trial of void, bladder scan every shift-no residuals (5) Diabetes: A1c was 6.5% this admission. glucose with some occasional hyperglycemia here due to steroids - continue Novolog SS Dexamethasone now discontinued monitor for hypoglycemia, no episodes -Holding home glipizide (6) Diarrhea: Suspect secondary to COVID-19 as above. C. diff negative on 09/14. Now resolved no rectal bleeding in long time, has dome earlier this admission (7) Acute hypotension: Secondary to anti-hypertensives in the setting of diarrhea and dehydration. - Management as above for IZABELLA Blood pressures are now normal continue to hold lisinopril but have restarted HCTZ started low dose Lopressor 12.5mg BID for SVT (8) Hypertension: - As above Continue home aspirin as well (9) Hypercholesterolemia: - Continue ezetimibe and fenofibrate. Unclear why the patient is not on a statin. (10) Peripheral artery disease: Exact details of this unclear. Patient mentions possible stent. - Continue aspirin 81 mg p.o. daily, clopidogrel 75 mg p.o. daily, ezetimibe 10 mg p.o. daily -Fenofibrate is on hold (11) Hyperkalemia: Potassium mildly elevated at 5.3 and now improved back to normal after restarting HCTZ and giving low potassium diet Continue HCTZ Follow BMP in the morning -Also receiving insulin which will help drive down potassium (12) DVT prophylaxis: Heparin SQ SCDs Disposition-Continued stay on telemetry, but have since discontinued Covid precautions as he is improving and has had Covid now for several weeks Admission and Anticipated Discharge Date Admission Date: September 13, 2020 Subjective No new complaints, just anxious to go home. Still on 10L HFNC today and was on Vapotherm all night at 30L, 50% FiO2. Denies CP or SOB, is lying on side and using IS. Moving bowels nad makin urine. Eating everything on his tray. Tele with NSR, rates 70-80s Review of Systems Review of Systems: All systems reviewed & are unremarkable except as noted in HPI & below Physical Exam Constitutional: WD/WN, vitals as above Eyes: + anicteric sclerae Neck: trachea midline, no thyromegaly Respiratory: normal respiratory effort Auscultation: + crackles (Bibasilar and some in right upper lung field); no diminished lung sounds and no wheezes Cardiovascular: RRR, no murmur, no edema Extremities: no calf tenderness Chest (Breasts): Chest: normal inspection of chest Gastrointestinal (Abdomen): normal bowel sounds, soft, nontender, no hepatosplenomegaly Musculoskeletal: Extremities: extremities normal to inspection; no cyanosis an d no clubbing Skin: no rashes, warm and dry Neurologic: moves all extremities and awake; no focal motor deficits Psychiatric: Orientation: alert, oriented x 3 and cooperative Eye Contact: good eye contact Speech: normal rate/rhythm/volume of speech Affect: + depressed affect Lymphatic: no lymphedema Results & Data Results & Data ([facility]) Vital Signs (Past 12 Hours) Vital Signs Temp Pulse Pulse Pulse Resp BP BP 10/04/20 11:39 36.4 C L 83 20 111/62 10/04/20 10:42 92 H 10/04/20 08:00 92 H 18 94/63 L 10/04/20 07:15 72 22 10/04/20 07:00 73 10/04/20 06:00 79 10/04/20 04:29 36.9 C 63 20 105/85 Pulse Ox 10/04/20 11:39 90 10/04/20 10:42 10/04/20 08:00 88 L 10/04/20 07:15 90 10/04/20 07:00 88 L 10/04/20 06:00 93 10/04/20 04:29 91 Laboratory Results 10/04/20 10/04/20 10/04/20 Range/Units 11:41 08:21 06:35 WBC (4.8-10.8) K/uL RBC (4.7-6.1) M/uL Hgb (14.0-18.0) g/dL Hct (42-52) % MCV (80-100) fL MCH (25-34) pg MCHC (32-36) g/dL RDW Std Deviation (36.4-46.3) fL RDW Coeff of Lexy (11.5-14.5) % Plt Count (130-400) K/uL MPV (7.4-10.4) fL Absolute Nucleated RBC (0-0) K/uL Nucleated RBC % (auto) % Sodium 137 (136-145) mmol/L Potassium 4.4 (3.5-5.1) mmol/L Chloride 103 (98-107) mmol/L Carbon Dioxide 29 (21-32) mmol/L Anion Gap 5.0 (3-11) BUN 42 H (7-18) mg/dl Creatinine 0.92 (0.6-1.4) mg/dl Est Cr Clr Drug Dosing 70.3 ml/min Est GFR ( Amer) 94.0 Est GFR (Non-Af Amer) 81.1 BUN/Creatinine Ratio 45.9 H (10-20) Glucose 106 H (70-99) mg/dl POC Glucose 187 H 118 H (70-99) mg/dl Calcium 9.0 (8.5-10.1) mg/dl Phosphorus 3.3 (2.5-4.9) mg/dl Magnesium 2.4 (1.8-2.4) mg/dl Total Bilirubin 0.8 (0.2-1) mg/dl AST 23 (15-37) U/L ALT 65 (12-78) U/L Alkaline Phosphatase 57 (45-117) U/L C-Reactive Protein 0.54 H (0-0.29) mg/dl Total Protein 6.2 L (6.4-8.2) gm/dl Albumin 2.5 L (3.4-5.0) gm/dl Globulin 3.7 (2.5-4.0) gm/dl Albumin/Globulin Ratio 0.7 L (0.9-2) TSH 1.690 (0.300-4.500) uIu/ml 10/04/20 10/03/20 10/03/20 Range/Units 06:35 21:03 16:22 WBC 10.41 (4.8-10.8) K/uL RBC 4.02 L (4.7-6.1) M/uL Hgb 13.4 L (14.0-18.0) g/dL Hct 38.6 L (42-52) % MCV 96.0 (80-100) fL MCH 33.3 (25-34) pg MCHC 34.7 (32-36) g/dL RDW Std Deviation 52.5 H (36.4-46.3) fL RDW Coeff of Lexy 15.3 H (11.5-14.5) % Plt Count 207 (130-400) K/uL MPV 9.7 (7.4-10.4) fL Absolute Nucleated RBC 0.06 H (0-0) K/uL Nucleated RBC % (auto) 0.6 % Sodium (136-145) mmol/L Potassium (3.5-5.1) mmol/L Chloride (98-107) mmol/L Carbon Dioxide (21-32) mmol/L Anion Gap (3-11) BUN (7-18) mg/dl Creatinine (0.6-1.4) mg/dl Est Cr Clr Drug Dosing ml/min Est GFR ( Amer) Est GFR (Non-Af Amer) BUN/Creatinine Ratio (10-20) Glucose (70-99) mg/dl POC Glucose 197 H 194 H (70-99) mg/dl Calcium (8.5-10.1) mg/dl Phosphorus (2.5-4.9) mg/dl Magnesium (1.8-2.4) mg/dl Total Bilirubin (0.2-1) mg/dl AST (15-37) U/L ALT (12-78) U/L Alkaline Phosphatase (45-117) U/L C-Reactive Protein (0-0.29) mg/dl Total Protein (6.4-8.2) gm/dl Albumin (3.4-5.0) gm/dl Globulin (2.5-4.0) gm/dl Albumin/Globulin Ratio (0.9-2) TSH (0.300-4.500) uIu/ml PG Care Time/CCT Total # of Minutes Spent Total Time Spent with Patient: Total time spent is greater than 50% in coordination of care (as documented) at patient's floor/unit and/or counseling patient: Coding Level of Care Code 61664 Subseq Hosp Care Lvl 2 Diagnoses COVID-19 U07.1 Acute respiratory failure with hypoxia J96.01 Paroxysmal SVT (supraventricular tachycardia) I47.1 Acute kidney failure N17.9 Acute renal failure type: unspecified Diabetes E11.9 Diarrhea A09 Diarrhea type: infectious Acute hypotension I95.9 Hypertension I10 Hypercholesterolemia E78.00 Peripheral artery disease I73.9 Hyperkalemia E87.5 DVT prophylaxis Z29.9 (1) Acute kidney failure Acute renal failure type: unspecified Qualified Code(s): N17.9 - Acute kidney failure, unspecified (2) Diarrhea Diarrhea type: infectious Qualified Code(s): A09 - Infectious gastroenteritis and colitis, unspecified
[2020-10-04] MEDS ORDERED: FUROSEMIDE 20 MG in SYRINGE 0 ML IV ONE (14:19)
[2020-10-04] MEDS ORDERED: FUROSEMIDE 40 MG/4 ML VIAL IV ONE (14:30)
[2020-10-04] MEDS: traZODone HCL 100 MG TAB PO SCH (20:57)
[2020-10-04] MEDS: TAMSULOSIN HCL 0.4 MG CAP PO SCH (20:58)
[2020-10-05] MEDS: BUDESONIDE 0.5 MG/2 ML VIAL (PULMICORT) NEB SCH ×2 (07:49→19:12)
[2020-10-05] MEDS: METOPROLOL TARTRATE 25 MG TAB PO SCH ×2 (08:31→20:41)
[2020-10-05] MEDS: CLOPIDOGREL BISULFATE 75 MG TAB PO SCH (08:32)
[2020-10-05] MEDS: ASPIRIN 81 MG ECTAB PO SCH (08:32)
[2020-10-05] MEDS: EZETIMIBE 10 MG TABLET PO SCH (08:32)
[2020-10-05] MEDS: HEPARIN SOD 5,000 UNIT/0.5 ML VIAL SQ SCH ×2 (08:32→20:42)
[2020-10-05] MEDS: hydroCHLOROthiazide 25 MG TAB PO SCH (08:33)
[2020-10-05] MEDS: INSULIN ASPART 100 UNITS/ML 3 ML PEN SC SCH ×4 (09:40→20:42)
--- NOTE | 2020-10-05 09:47 | Urology Consultation ---
Date of Consultation October 05, 2020 Assessment & Plan (1) Urinary retention: 75 year-old male patient, with history of prostate cancer, admitted with COVID-19 infection, found to have urinary retention. -Urinary retention likely multifactorial including acute illness, BPH. -Trial of void attempted during hospital stay, unsuccessful. -Lozano catheter replaced 10/04 without difficulty. -Patient afebrile. -Labs reviewed - white count and creatinine stable. -Recommend maintaining lozano catheter for now. -Consider initiating alpha viki such as Tamsulosin, caution for hypotension. -Recommend maintaining lozano catheter for 7-10 days, can offer passive voiding trial if still inpatient at that time. -If he is discharged home with lozano, will arrange outpatient voiding trial with urology service. -Expected clinical course reviewed with patient, all questions answered. Thank you for allowing us to participate in the acute care of Mr. Verma. Please reconsult us with additional questions, concerns or changes in patient status. History of Present Illness Reason for Consultation: Persistent urinary retention Attending Physician: Will Gonzalez DO History of Present Illness 75-year-old male patient, with past medical history significant for diabetes, hypercholesterolemia, hypertension, prostate cancer, and other comorbidities listed below, presented to the emergency room on 09/13 with complaints of generalized weakness, fever, cough, diarrhea and shortness of breath. Symptoms started 1 week prior to ER arrival. Symptoms consistent with COVID-19 infection. Diagnostic testing confirmed he was COVID-19 positive and he was admitted to the hospital for further management. Urology consulted for persistent urinary retention. Patient is known to [facility] urology, follows with Dr. Coronel. Does have known history of prostate cancer s/p XRT with six months Lupron in 2010. PSA in January 2020 0.2. Not currently on home medications for urinary pattern. Due to COVID-19 infection, hospital consult was done via chart review, discussion with nursing staff, and discussion with patient via telephone. Chart review: Afebrile Labs reviewed from 10/04 Wbc 10.41 Hgb 13.4 Creatinine 0.92 Urinalysis on admission was clear. Blood cultures from 09/13 no growth. No imaging performed during this admission. During current admission, patient developed acute urinary retention. A lozano catheter was placed 09/[address] until 10/02. It was then removed for trial of void. Per discussion with nursing, yesterday patient started experiencing urinary leaking/dribbling. He was straight cathed x1 for 700 ml urine. Yesterday evening, he was unable to empty his bladder and was subsequently bladder scanned for 650 ml urine. Lozano was re-inserted at that time. Per nursing staff, no difficulty with lozano catheter insertion and patient tolerated well. Via telephone discussion, he notes prior to acute illness, he did not have difficulty voiding. He denies dysuria or hematuria. Denies significant urinary frequency/urgency at baseline. Not currently on home medications for urinary pattern. Does not feel feverish. Denies nausea or vomiting. He denies flank or abdominal pain. He is currently tolerating lozano catheter. Denies additional urologic concerns today. Allergies Allergy/AdvReac Type Severity Reaction Status Date / Time No Known Allergies Verified 09/13/20 14:35 Home Medications Medication Instructions Recorded Confirmed Type aspirin 81 mg tablet,delayed 81 mg PO DAILY 01/31/19 09/13/20 History release clopidogrel 75 mg tablet 75 mg PO DAILY 01/31/19 09/13/20 History ezetimibe 10 mg tablet 10 mg PO DAILY 01/31/19 09/13/20 History fenofibrate nanocrystallized 145 145 mg PO DAILY 01/31/19 09/13/20 History mg tablet glipizide 5 mg tablet 2.5 mg PO BID 01/31/19 09/13/20 History lisinopril 10 1 tab PO DAILY 01/31/19 09/13/20 History mg-hydrochlorothiazide 12.5 mg tablet trazodone 100 mg tablet 100 mg PO DAILY 01/31/19 09/13/20 History vit C,E,zinc,copper-[id number] 250 1 cap PO DAILY 01/31/19 09/13/20 History mg-lutein 5 mg-zeaxanthin 1 mg capsule Patient History Medical History Diabetes History of tobacco abuse Hypercholesterolemia Hypertension Prostate cancer Surgical History Surgical history unknown Social History Smoking Status: Former smoker Hx Alcohol Use: No Hx Substance Use: No Preferred Language: Norwegian Communication Ability: Effective Current Living Situation: Other Current Living Situation Comment: Grandson, 1 level house with cellar steps Other Information That Helps Us Care for You: No Feels Safe at Home: Yes Safety Concerns: Feels Safe At This Time Assistive Devices: Glasses, Oxygen - Continuous and Walker Assistive Devices Comment: R eye prosthesis Review of Systems Constitutional: as per Subjective / HPI; no fever and no chills Eyes: no problem reported Ear, Nose, Mouth, Throat: no dizziness Respiratory: as per Subjective / HPI Gastrointestinal: as per Subjective / HPI Genitourinary: + as per Subjective / HPI Musculoskeletal: no problem reported Neurologic: no dizziness Endocrine: + fatigue Hematologic / Lymphatic: no easy bleeding and no easy bruising Physical Exam Physical Exam: Consult done via telephone visit with patient and nursing staff. Results & Data ([facility]) Vital Signs (Past 12 Hours) Vital Signs Temp Pulse Pulse Pulse Resp BP BP 10/05/20 08:23 91 H 10/05/20 08:00 91 H 10/05/20 07:49 88 20 10/05/20 07:37 36.9 C 85 106/57 L 10/05/20 07:20 87 10/05/20 03:14 36.8 C 84 98/49 L 10/04/20 23:55 36.8 C 78 20 118/72 10/04/20 22:27 75 Pulse Ox 10/05/20 08:23 10/05/20 08:00 10/05/20 07:49 93 10/05/20 07:37 92 10/05/20 07:20 95 10/05/20 03:14 94 10/04/20 23:55 92 10/04/20 22:27 PG Care Time/CCT Total # of Minutes Spent Total Time Spent with Patient: Total time spent is greater than 50% in coordi nation of care (as documented) at patient's floor/unit and/or counseling patient: Coding Level of Care Code 81119 Initial Inpt Care Lvl 1 Diagnoses Urinary retention R33.9
--- NOTE | 2020-10-05 10:06 | Hospitalist Progress Note ---
Date of Service October 05, 2020 Assessment & Plan (1) COVID-19: evidence of COVID pneumonia on chest imaging - completed 10 days of dexamethasone 6mg daily since he was still on high flow nasal cannula after 10 days, was treated for late ARDS with dexamethasone 20mg IV daily x 5 days then 10mg IV daily x 5 days- has completed course on 10/03 CRP down to 1.1 but was as high as 16.7 on 09/18--> so inflammation is going down -Has not able to prone due to back pain, encouraged him to lay on his side -Continue incentive spirometry which is at the bedside-encouraged -Has been on Vapotherm and high flow nasal cannula back and forth for many days, at one point was weaned down to 6 L nasal cannula on 10/01 On 10/02, was back up to 15 L overnight, but now weaned back down again to 7 L nasal cannula On 10/03 back up to 15 L again in the morning and placed on Vapotherm at 30 L, 60% FiO2 with pulse ox 96% 10/04 still on 10L wall HFNC, not SOB, getting from bed to chair and walking short distances in room today, 10/05, he remains on 10L wall high flow, no dyspnea at rest or on exertion will give another dose of Lasix 20mg IV to see if we can dry him out a little and improve oxygen requirements he is tearful, just wants to be at home at this point PT/OT consulted, but family wants him to come home with 24/ care CXR 10/04 with progressed bilateral infiltrates (2) Acute respiratory failure with hypoxia: Long slow recovery but finally improving was on Vapotherm for over a week , Now back and forth between wall high flow nasal cannula and Vapotherm Asked nurse to put him on Vapotherm if he requires 10 L or more of the wall high flow nasal cannula in order to provide some PEEP continue to wean as tolerated he cannot lay prone, multiple discussions held to try this Continue incentive spirometry and flutter valve Continue budesonide nebulizers -No wheezing, bronchodilators not likely to help discussed code status on 09/26, he said he would not want intubated if he would get worse (3) Paroxysmal SVT (supraventricular tachycardia): happened on 09/23 at 1245, only lasted for 4 minutes, rates 150's Started Lopressor 12.5mg BID, no further issues no symptoms TSH normal (4) Acute kidney failure: Unknown baseline. Requested notes from his primary care provider regarding prior labs, medical conditions, medications, and past medical history. Suspect prerenal due to hypotension on admission in setting of antihypertensive use. - continue to hold lisinopril, but have since restarted HCTZ - Creatinine is normal at 0.9, BUN is 56 lozano placed again for urinary retention on 10/04 in the evening (5) Diabetes: A1c was 6.5% this admission. glucose with some occasional hyperglycemia here due to steroids - continue Novolog SS Dexamethasone now discontinued monitor for hypoglycemia, no episodes -Holding home glipizide (6) Diarrhea: Suspect secondary to COVID-19 as above. C. diff negative on 09/14. Now resolved no rectal bleeding in long time, has dome earlier this admission (7) Acute hypotension: Secondary to anti-hypertensives in the setting of diarrhea and dehydration. - Management as above for IZABELLA Blood pressures are now normal continue to hold lisinopril but have restarted HCTZ started low dose Lopressor 12.5mg BID for SVT (8) Hypertension: - As above Continue home aspirin as well (9) Hypercholesterolemia: - Continue ezetimibe and fenofibrate. Unclear why the patient is not on a statin. (10) Peripheral artery disease: Exact details of this unclear. Patient mentions possible stent. - Continue aspirin 81 mg p.o. daily, clopidogrel 75 mg p.o. daily, ezetimibe 10 mg p.o. daily -Fenofibrate is on hold (11) Hyperkalemia: Potassium mildly elevated at 5.3 and now improved back to normal after restarting HCTZ and giving low potassium diet Continue HCTZ Follow BMP in the morning -Also receiving insulin which will help drive down potassium (12) DVT prophylaxis: Heparin SQ SCDs Disposition-Continued stay on telemetry, but have since discontinued Covid precautions as he is improving and has had Covid now for several weeks Admission and Anticipated Discharge Date Admission Date: September 13, 2020 Subjective patient laying in bed, he is tearful this morning, so frustrated, just wants to go home he understands he needs to be on less oxygen in order to go home, right now he is on 10L reviewed chart, lozano placed for urinary retention, will keep it in place he had a decent response to lasix 20mg IV yesterday, will repeat the dose this morning, try to improve oxygen requirements he is eating okay, got OOB to chair this morning, having formed stools he plans to go home with / care from family, he just wants to get out of here Review of Systems Review of Systems: All systems reviewed & are unremarkable except as noted in Subjective Constitutional: + fatigue and + weakness; no fever Respiratory: no cough, no dyspnea and no dyspnea on exertion Cardiovascular: no chest pain and no edema Gastrointestinal: no abdominal pain, no nausea, no vomiting, no constipation and no diarrhea/loose stools Physical Exam Constitutional: WD/WN, vitals as above + frail appearing; no acute distress Neck: trachea midline, no thyromegaly Respiratory: normal respiratory effort; no respiratory distress and no labored breathing Auscultation: lungs clear to auscultation bilaterally Cardiovascular: RRR, no murmur, no edema Gastrointestinal (Abdomen): normal bowel sounds, soft, nontender, no hepatosplenomegaly Musculoskeletal: no cyanosis or clubbing, extremities motor strength 5/5 Skin: no rashes, warm and dry Neurologic: patellar DTR's 2+ bilat, sensation intact and PERRL, EOMI, accommodation nl, no face palsy, no dysarthria Psychiatric: A+Ox3, euthymic affect Lymphatic: no cervical or axillary lymphadenopathy Results & Data Results & Data ([facility]) Vital Signs (Past 12 Hours) Vital Signs Temp Pulse Pulse Pulse Resp BP BP 10/05/20 08:23 91 H 10/05/20 08:00 91 H 10/05/20 07:49 88 20 10/05/20 07:37 36.9 C 85 106/57 L 10/05/20 07:20 87 10/05/20 03:14 36.8 C 84 98/49 L 10/04/20 23:55 36.8 C 78 20 118/72 10/04/20 22:27 75 Pulse Ox 10/05/20 08:23 10/05/20 08:00 10/05/20 07:49 93 10/05/20 07:37 92 10/05/20 07:20 95 10/05/20 03:14 94 10/04/20 23:55 92 10/04/20 22:27 Laboratory Results Laboratory Results - last 24 hr 10/04/20 10/04/20 10/04/20 11:41 16:10 20:17 POC Glucose 187 H 135 H 188 H 10/05/20 07:35 POC Glucose 106 H Medications Administered Current Inpatient Medications Acetaminophen (Acetaminophen 325 Mg Tab) 650 mg PO Q4H PRN PRN Reason: Pain or Fever Stop: 10/13/20 18:12 Last Admin: 09/30/20 21:21 Dose: 650 mg Documented by: Al Hydrox/Mg Hydrox/Simethicone (Aluminum/Magnesium Susp 30 Ml Udc) 15 ml PO Q4H PRN PRN Reason: Dyspepsia Stop: 10/13/20 18:12 Aspirin (Aspirin 81 Mg Ectab) 81 mg PO DAILY [facility] Stop: 10/14/20 08:59 Last Admin: 10/05/20 08:32 Dose: 81 mg Documented by: Budesonide (Budesonide 0.5 Mg/2 Ml Vial (Pulmicort)) 0.5 mg NEB BIDR [facility] Stop: 10/21/20 18:59 Last Admin: 10/05/20 07:49 Dose: 0.5 mg Documented by: Clopidogrel Bisulfate (Clopidogrel Bisulfate 75 Mg Tab) 75 mg PO DAILY [facility] Stop: 10/14/20 08:59 Last Admin: 10/05/20 08:32 Dose: 75 mg Documented by: Dextrose (Dextrose 50% 50 Ml Syringe) 25 - 50 ml IV UD PRN; Protocol PRN Reason: Hypoglycemia Protocol Stop: 10/13/20 20:36 Ezetimibe (Ezetimibe 10 Mg Tablet) 10 mg PO DAILY [facility] Stop: 10/14/20 08:59 Last Admin: 10/05/20 08:32 Dose: 10 mg Documented by: Fenofibrate (Fenofibrate Nanocrystallized 145 Mg Tablet) 145 mg PO DAILY [facility] Stop: 10/14/20 08:59 Last Admin: 09/21/20 08:03 Dose: 145 mg Documented by: Glucagon (Glucagon For Inj 1 Mg Vial) 1 mg SQ UD PRN; Protocol PRN Reason: Hypoglycemia Protocol Stop: 10/13/20 20:36 Glucose (Glucose 10 Tabs/Tube) 4 - 8 tabs PO UD PRN; Protocol PRN Reason: Hypoglycemia Protocol Stop: 10/13/20 20:36 Glucose (Glucose 40% Gel 15 Gm Tube) 15 - 30 gm PO UD PRN; Protocol PRN Reason: Hypoglycemia Protocol Stop: 10/13/20 20:36 Heparin Sodium (Porcine) (Heparin Sod 5,000 Unit/0.5 Ml Vial) 5,000 units SQ Q12 [facility] Stop: 10/19/20 20:59 Last Admin: 10/05/20 08:32 Dose: 5,000 units Documented by: Hydrochlorothiazide (Hydrochlorothiazide 25 Mg Tab) 12.5 mg PO QAM [facility] Stop: 10/29/20 08:59 Last Admin: 10/05/20 08:33 Dose: Not Given Documented by: Insulin Aspart (Insulin Aspart 100 Units/Ml 3 Ml Pen) 0 units SC ACHS [facility] Stop: 10/15/20 16:29 Last Admin: 10/05/20 09:40 Dose: 10 units Documented by: Loperamide HCl (Loperamide Hcl 2 Mg Cap) 2 mg PO QID PRN PRN Reason: Diarrhea Stop: 10/14/20 16:44 Last Admin: 09/16/20 07:40 Dose: 2 mg Documented by: Melatonin (Melatonin 3 Mg Tab) 3 mg PO HS PRN PRN Reason: Sleep Stop: 10/26/20 19:50 Last Admin: 09/26/20 20:45 Dose: 3 mg Documented by: Metoprolol Tartrate (Metoprolol Tartrate 25 Mg Tab) 12.5 mg PO BID [facility] Stop: 10/23/20 12:59 Last Admin: 10/05/20 08:31 Dose: 12.5 mg Documented by: Miscellaneous (Carbohydrates For Hypoglycemia ) 15 - 30 gm PO UD PRN PRN Reason: Hypoglycemia Protocol Stop: 10/13/20 20:36 Ondansetron HCl (Ondansetron Inj 2 Mg/Ml 2 Ml Vial) 4 mg IV Q4H PRN PRN Reason: Nausea Stop: 10/13/20 18:12 Tamsulosin HCl (Tamsulosin Hcl 0.4 Mg Cap) 0.4 mg PO HS [facility] Stop: 11/03/20 20:59 Last Admin: 10/04/20 20:58 Dose: 0.4 mg Documented by: Trazodone HCl (Trazodone Hcl 100 Mg Tab) 100 mg PO HS [facility] Stop: 10/13/20 20:59 Last Admin: 10/04/20 20:57 Dose: 100 mg Documented by: PG Care Time/CCT Total # of Minutes Spent Total Time Spent with Patient: Total time spent is greater than 50% in coordination of care (as documented) at patient's floor/unit and/or counseling patient: Coding Level of Care Code 07325 Subseq Hosp Care Lvl 2 Diagnoses COVID-19 U07.1 Acute respiratory failure with hypoxia J96.01 Paroxysmal SVT (supraventricular tachycardia) I47.1 Acute kidney failure N17.9 Acute renal failure type: unspecified Diabetes E11.9 Diarrhea A09 Diarrhea type: infectious Acute hypotension I95.9 Hypertension I10 Hypercholesterolemia E78.00 Peripheral artery disease I73.9 Hyperkalemia E87.5 DVT prophylaxis Z29.9 (1) Acute kidney failure Acute renal failure type: unspecified Qualified Code(s): N17.9 - Acute kidney failure, unspecified (2) Diarrhea Diarrhea type: infectious Qualified Code(s): A09 - Infectious gastroenteritis and colitis, unspecified
[2020-10-05] MEDS ORDERED: FUROSEMIDE 20 MG in SYRINGE 0 ML IV ONE (10:08)
[2020-10-05] MEDS ORDERED: FUROSEMIDE 40 MG/4 ML VIAL IV ONE (10:15)
[2020-10-05] MEDS: TAMSULOSIN HCL 0.4 MG CAP PO SCH (20:42)
[2020-10-05] MEDS: traZODone HCL 100 MG TAB PO SCH (20:42)
[2020-10-06] MEDS: BUDESONIDE 0.5 MG/2 ML VIAL (PULMICORT) NEB SCH ×2 (07:21→19:36)
--- NOTE | 2020-10-06 07:31 | Hospitalist Progress Note ---
Date of Service October 06, 2020 Assessment & Plan (1) COVID-19: evidence of COVID pneumonia on chest imaging - completed 10 days of dexamethasone 6mg daily since he was still on high flow nasal cannula after 10 days, was treated for late ARDS with dexamethasone 20mg IV daily x 5 days then 10mg IV daily x 5 days- has completed course on 10/03 CRP down to 1.1 but was as high as 16.7 on 09/18--> so inflammation is going down -Has not able to prone due to back pain, encouraged him to lay on his side -Continue incentive spirometry which is at the bedside-encouraged has been difficult to wean back oxygen, fluctuates between Vapotherm and wall high flow finally moving in right direction, down to 6L today, 93% saturations at rest he is tearful, just wants to be at home at this point PT/OT consulted, but family wants him to come home with 02/01 care will call his family to discuss potential discharge to home tomorrow on oxygen they can provide care (2) Acute respiratory failure with hypoxia: Long slow recovery but finally improving was on Vapotherm for over a week , Now back and forth between wall high flow nasal cannula and Vapotherm discussed code status on 09/26, he said he would not want intubated if he would get worse 10/06: the patient is requiring 6L NC continuous for saturations > 90% (3) Paroxysmal SVT (supraventricular tachycardia): happened on 09/23 at 1245, only lasted for 4 minutes, rates 150's Started Lopressor 12.5mg BID, no further issues no symptoms TSH normal (4) Acute kidney failure: Unknown baseline. Requested notes from his primary care provider regarding prior labs, medical conditions, medications, and past medical history. Suspect prerenal due to hypotension on admission in setting of antihypertensive use. - continue to hold lisinopril, but have since restarted HCTZ - Creatinine is normal at 0.8, BUN is 32 lozano placed again for urinary retention on 10/04 in the evening give another dose of Lasix 20mg IV today, keep lungs dry (5) Diabetes: A1c was 6.5% this admission. glucose with some occasional hyperglycemia here due to steroids - continue Novolog SS Dexamethasone now discontinued monitor for hypoglycemia, no episodes -Holding home glipizide sugars are stable without the glipizide, would probably just discontinue on discharge (6) Diarrhea: Suspect secondary to COVID-19 as above. C. diff negative on 09/14. Now resolved no rectal bleeding in long time, has dome earlier this admission (7) Acute hypotension: Secondary to anti-hypertensives in the setting of diarrhea and dehydration. - Management as above for IZABELLA Blood pressures are now normal continue to hold lisinopril but have restarted HCTZ started low dose Lopressor 12.5mg BID for SVT (8) Hypertension: - As above Continue home aspirin as well (9) Hypercholesterolemia: - Continue ezetimibe and fenofibrate. Unclear why the patient is not on a statin. (10) Peripheral artery disease: Exact details of this unclear. Patient mentions possible stent. - Continue aspirin 81 mg p.o. daily, clopidogrel 75 mg p.o. daily, ezetimibe 10 mg p.o. daily -Fenofibrate is on hold (11) Hyperkalemia: 4.2 today on HCTZ and getting a dose of Lasix today (12) DVT prophylaxis: Heparin SQ SCDs Disposition- plan for discharge to home tomorrow on oxygen, 6L continuous, and with home health agency and family providing 24/ care Admission and Anticipated Discharge Date Admission Date: September 13, 2020 Subjective patient laying in bed, says he feels the same as yesterday, breathing is stable, no cough, no chest pain eating well, was OOB in the chair this morning with assistance he was on 8L when I walked in the room, put him down to 6L, saturations stayed 91-93% Cr is stable after Lasix, will give another dose of Lasix 20mg IV today discussed going home tomorrow, he got very emotional, he just wants out of the hospital and see his family called his son in law Nelson to discuss plan 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 Review of Systems: All systems reviewed & are unremarkable except as noted in Subjective Constitutional: + fatigue and + weakness; no fever Respiratory: no cough, no dyspnea and no dyspnea on exertion Cardiovascular: no chest pain Gastrointestinal: no abdominal pain, no nausea, no vomiting, no constipation and no diarrhea/loose stools Physical Exam Constitutional: WD/WN, vitals as above + frail appearing; no acute distress Neck: trachea midline, no thyromegaly Respiratory: normal respiratory effort; no respiratory distress and no labored breathing Auscultation: lungs clear to auscultation bilaterally Cardiovascular: RRR, no murmur, no edema Gastrointestinal (Abdomen): normal bowel sounds, soft, nontender, no hepatosplenomegaly Musculoskeletal: no cyanosis or clubbing, extremities motor strength 5/5 Skin: no rashes, warm and dry Neurologic: patellar DTR's 2+ bilat, sensation intact and PERRL, EOMI, accommodation nl, no face palsy, no dysarthria Psychiatric: A+Ox3, euthymic affect Lymphatic: no cervical or axillary lymphadenopathy Results & Data Results & Data ([facility]) Vital Signs (Past 12 Hours) Vital Signs Temp Pulse Pulse Resp BP Pulse Ox 10/06/20 07:21 77 18 89 L 10/06/20 03:27 36.6 C 77 20 102/51 L 90 10/05/20 23:47 36.7 C 79 20 105/55 L 93 10/05/20 22:20 79 Laboratory Results Laboratory Results - last 24 hr 10/05/20 10/05/20 10/05/20 07:35 11:49 16:38 Sodium Potassium Chloride Carbon Dioxide Anion Gap BUN Creatinine Est Cr Clr Drug Dosing Est GFR ( Amer) Est GFR (Non-Af Amer) BUN/Creatinine Ratio Glucose POC Glucose 106 H 139 H 110 H Calcium 10/05/20 10/06/20 20:33 06:21 Sodium Pending Potassium Pending Chloride Pending Carbon Dioxide Pending Anion Gap Pending BUN Pending Creatinine Pending Est Cr Clr Drug Dosing Pending Est GFR ( Amer) Pending Est GFR (Non-Af Amer) Pending BUN/Creatinine Ratio Pending Glucose Pending POC Glucose 192 H Calcium Pending Medications Administered Current Inpatient Medications Acetaminophen (Acetaminophen 325 Mg Tab) 650 mg PO Q4H PRN PRN Reason: Pain or Fever Stop: 10/13/20 18:12 Last Admin: 09/30/20 21:21 Dose: 650 mg Documented by: Al Hydrox/Mg Hydrox/Simethicone (Aluminum/Magnesium Susp 30 Ml Udc) 15 ml PO Q4H PRN PRN Reason: Dyspepsia Stop: 10/13/20 18:12 Aspirin (Aspirin 81 Mg Ectab) 81 mg PO DAILY [facility] Stop: 10/14/20 08:59 Last Admin: 10/05/20 08:32 Dose: 81 mg Documented by: Budesonide (Budesonide 0.5 Mg/2 Ml Vial (Pulmicort)) 0.5 mg NEB BIDR [facility] Stop: 10/21/20 18:59 Last Admin: 10/06/20 07:21 Dose: 0.5 mg Documented by: Clopidogrel Bisulfate (Clopidogrel Bisulfate 75 Mg Tab) 75 mg PO DAILY [facility] Stop: 10/14/20 08:59 Last Admin: 10/05/20 08:32 Dose: 75 mg Documented by: Dextrose (Dextrose 50% 50 Ml Syringe) 25 - 50 ml IV UD PRN; Protocol PRN Reason: Hypoglycemia Protocol Stop: 10/13/20 20:36 Ezetimibe (Ezetimibe 10 Mg Tablet) 10 mg PO DAILY [facility] Stop: 10/14/20 08:59 Last Admin: 10/05/20 08:32 Dose: 10 mg Documented by: Fenofibrate (Fenofibrate Nanocrystallized 145 Mg Tablet) 145 mg PO DAILY [facility] Stop: 10/14/20 08:59 Last Admin: 09/21/20 08:03 Dose: 145 mg Documented by: Glucagon (Glucagon For Inj 1 Mg Vial) 1 mg SQ UD PRN; Protocol PRN Reason: Hypoglycemia Protocol Stop: 10/13/20 20:36 Glucose (Glucose 10 Tabs/Tube) 4 - 8 tabs PO UD PRN; Protocol PRN Reason: Hypoglycemia Protocol Stop: 10/13/20 20:36 Glucose (Glucose 40% Gel 15 Gm Tube) 15 - 30 gm PO UD PRN; Protocol PRN Reason: Hypoglycemia Protocol Stop: 10/13/20 20:36 Heparin Sodium (Porcine) (Heparin Sod 5,000 Unit/0.5 Ml Vial) 5,000 units SQ Q12 URIEL Stop: 10/19/20 20:59 Last Admin: 10/05/20 20:42 Dose: 5,000 units Documented by: Hydrochlorothiazide (Hydrochlorothiazide 25 Mg Tab) 12.5 mg PO QAM [facility] Stop: 10/29/20 08:59 Last Admin: 10/05/20 08:33 Dose: Not Given Documented by: Insulin Aspart (Insulin Aspart 100 Units/Ml 3 Ml Pen) 0 units SC ACHS URI[facility] Stop: 10/15/20 16:29 Last Admin: 10/05/20 20:42 Dose: 3 units Documented by: Loperamide HCl (Loperamide Hcl 2 Mg Cap) 2 mg PO QID PRN PRN Reason: Diarrhea Stop: 10/14/20 16:44 Last Admin: 09/16/20 07:40 Dose: 2 mg Documented by: Melatonin (Melatonin 3 Mg Tab) 3 mg PO HS PRN PRN Reason: Sleep Stop: 10/26/20 19:50 Last Admin: 09/26/20 20:45 Dose: 3 mg Documented by: Metoprolol Tartrate (Metoprolol Tartrate 25 Mg Tab) 12.5 mg PO BID [facility] Stop: 10/23/20 12:59 Last Admin: 10/05/20 20:41 Dose: 12.5 mg Documented by: Miscellaneous (Carbohydrates For Hypoglycemia ) 15 - 30 gm PO UD PRN PRN Reason: Hypoglycemia Protocol Stop: 10/13/20 20:36 Ondansetron HCl (Ondansetron Inj 2 Mg/Ml 2 Ml Vial) 4 mg IV Q4H PRN PRN Reason: Nausea Stop: 10/13/20 18:12 Tamsulosin HCl (Tamsulosin Hcl 0.4 Mg Cap) 0.4 mg PO HS [facility] Stop: 11/03/20 20:59 Last Admin: 10/05/20 20:42 Dose: 0.4 mg Documented by: Trazodone HCl (Trazodone Hcl 100 Mg Tab) 100 mg PO HS [facility] Stop: 10/13/20 20:59 Last Admin: 10/05/20 20:42 Dose: 100 mg Documented by: PG Care Time/CCT Total # of Minutes Spent Total Time Spent with Patient: Total time spent is greater than 50% in coordination of care (as documented) at patient's floor/unit and/or counseling patient: Coding Level of Care Code 19363 Subseq Hosp Care Lvl 3 Diagnoses COVID-19 U07.1 Acute respiratory failure with hypoxia J96.01 Paroxysmal SVT (supraventricular tachycardia) I47.1 Acute kidney failure N17.9 Acute renal failure type: unspecified Diabetes E11.9 Diarrhea A09 Diarrhea type: infectious Acute hypotension I95.9 Hypertension I10 Hypercholesterolemia E78.00 Peripheral artery disease I73.9 Hyperkalemia E87.5 DVT prophylaxis Z29.9 (1) Acute kidney failure Acute renal failure type: unspecified Qualified Code(s): N17.9 - Acute kidney failure, unspecified (2) Diarrhea Diarrhea type: infectious Qualified Code(s): A09 - Infectious gastroenteritis and colitis, unspecified
[2020-10-06] MEDS: INSULIN ASPART 100 UNITS/ML 3 ML PEN SC SCH ×4 (08:00→21:35)
[2020-10-06 08:08] LABS: BUN Creatinine Ratio 41.6 (10-20); Calcium 8.5 mg/dl (8.5-10.1); Creatinine Clr Calc Pharmacy 77.1 ml/min; Est GFR (African American) 100.3; Est GFR (Non-African American) 86.5; Potassium 4.2 mmol/L (3.5-5.1)
[2020-10-06] MEDS: METOPROLOL TARTRATE 25 MG TAB PO SCH ×2 (08:50→21:26)
[2020-10-06] MEDS: HEPARIN SOD 5,000 UNIT/0.5 ML VIAL SQ SCH ×2 (08:51→21:19)
[2020-10-06] MEDS: ASPIRIN 81 MG ECTAB PO SCH (08:51)
[2020-10-06] MEDS: hydroCHLOROthiazide 25 MG TAB PO SCH (08:51)
[2020-10-06] MEDS: EZETIMIBE 10 MG TABLET PO SCH (08:51)
[2020-10-06] MEDS: CLOPIDOGREL BISULFATE 75 MG TAB PO SCH (08:51)
[2020-10-06] MEDS ORDERED: FUROSEMIDE 20 MG in SYRINGE 0 ML IV ONE (10:23)
[2020-10-06] MEDS ORDERED: FUROSEMIDE 40 MG/4 ML VIAL IV ONE (10:30)
[2020-10-06] MEDS: traZODone HCL 100 MG TAB PO SCH (21:23)
[2020-10-06] MEDS: TAMSULOSIN HCL 0.4 MG CAP PO SCH (21:27)
[2020-10-07 06:04] LABS: Hematocrit (blood only) 34.5 % (42-52); Hemoglobin 11.6 g/dL (14.0-18.0); Mean Corpuscular Hemoglobin 32.8 pg (25-34); Mean Corpuscular Hgb Conc 33.6 g/dL (32-36); Mean Corpuscular Volume 97.5 fL (80-100); Mean Platelet Volume 9.4 fL (7.4-10.4); Platelet Count 132 K/uL (130-400); RDW Coefficient of Variation 15.9 % (11.5-14.5); RDW Standard Deviation 55.2 fL (36.4-46.3); Red Blood Count 3.54 M/uL (4.7-6.1); White Blood Count 5.98 K/uL (4.8-10.8)
[2020-10-07] MEDS: BUDESONIDE 0.5 MG/2 ML VIAL (PULMICORT) NEB SCH (07:29)
[2020-10-07] MEDS: INSULIN ASPART 100 UNITS/ML 3 ML PEN SC SCH ×2 (08:00→12:35)
[2020-10-07] MEDS: METOPROLOL TARTRATE 25 MG TAB PO SCH (08:59)
[2020-10-07] MEDS: EZETIMIBE 10 MG TABLET PO SCH (09:00)
[2020-10-07] MEDS: ASPIRIN 81 MG ECTAB PO SCH (09:00)
[2020-10-07] MEDS: hydroCHLOROthiazide 25 MG TAB PO SCH (09:00)
[2020-10-07] MEDS: CLOPIDOGREL BISULFATE 75 MG TAB PO SCH (09:00)
[2020-10-07] MEDS: HEPARIN SOD 5,000 UNIT/0.5 ML VIAL SQ SCH (09:02)
--- NOTE | 2020-10-07 12:17 | Communication Note ---
Date of Service: October 07, 2020 patient's saturations drop to 85% on room air, he requires 6L to get saturations above 88%
--- NOTE | 2020-10-07 14:57 | Discharge Summary ---
Date of Service October 07, 2020 Admission HPI Per Admitting Provider Douglas Verma is a 75-year-old male who presents to the ER with generalized weakness, fever, weakness, cough, diarrhea and shortness of breath. Symptoms started 1 week ago. Symptoms included fever, chills, shortness of breath, cough, poor appetite, generalized weakness, myalgias, headache, fatigue and diarrhea. He denies any loss of taste or smell, chest or abdominal pain. He was prompted to come to the ER today by his daughter who is not present at bedside. In the ER, CXR was concerning for multifocal airspace consolidation. SARS-COV-2 PCR positive. Procalcitonin negative. He was initially hypotensive with BP 72/48 which has improved since 1L NSS bolus given. Cr 2.2 (unknown baseline). He was treated empirically with Zosyn 4.5g prior to all lab work coming back. He was referred to medicine for admission and ongoing management of COVID-19 pneumonia and sepsis. I tried to update his family on admission however only number provided was the home number for his with no answer. No other phone numbers on the chart and the patient is unable to tell me any other phone numbers of family members. Principal Diagnosis COVID 19 pneumonia, acute hypoxic respiratory failure Discharge Exam Constitutional WD/WN, vitals as above no acute distress Neck trachea midline, no thyromegaly Respiratory normal respiratory effort; no respiratory distress and no labored breathing Auscultation: lungs clear to auscultation bilaterally Cardiovascular RRR, no murmur, no edema Gastrointestinal (Abdomen) normal bowel sounds, soft, nontender, no hepatosplenomegaly Musculoskeletal no cyanosis or clubbing, extremities motor strength 5/5 Skin no rashes, warm and dry Neurologic patellar DTR's 2+ bilat, sensation intact and PERRL, EOMI, accommodation nl, no face palsy, no dysarthria Psychiatric A+Ox3, euthymic affect Lymphatic no cervical or axillary lymphadenopathy Discharge Data Allergies Allergy/AdvReac Type Severity Reaction Status Date / Time No Known Allergies Verified 09/13/20 14:35 Consultations 09/13/20 16:41 ED Decision to Admit Stat 09/13/20 22:51 Consult Health Information Management Routine 09/17/20 10:57 Consult Pulmonology Routine 10/04/20 18:07 Consult Urology Routine Hospital Course (1) COVID-19: evidence of COVID pneumonia on chest imaging - completed 10 days of dexamethasone 6mg daily since he was still on high flow nasal cannula after 10 days, was treated for late ARDS with dexamethasone 20mg IV daily x 5 days then 10mg IV daily x 5 days- has completed course on 10/03 CRP down to 1.1 but was as high as 16.7 on 09/18--> so inflammation is going down has been difficult to wean back oxygen, fluctuates between Vapotherm and wall high flow finally moving in right direction, down to 6L the past two days, stable, no distress or increased work of breathing will arrange for home oxygen, told family that they can try to wean down from 6L slowly will go home with 02/01 family care and home health visits, therapy (2) Acute respiratory failure with hypoxia: Long slow recovery but finally improving was on Vapotherm for over a week , Now back and forth between wall high flow nasal cannula and Vapotherm discussed code status on 09/26, he said he would not want intubated if he would get worse 10/06 and 10/07: the patient is requiring 6L NC continuous for saturations > 90%, doing great, OOB in chair, no distress (3) Paroxysmal SVT (supraventricular tachycardia): happened on 09/23 at 1245, only lasted for 4 minutes, rates 150's Started Lopressor 12.5mg BID, no further issues continue Lopressor on discharge no symptoms TSH normal (4) Acute kidney failure: Unknown baseline. Requested notes from his primary care provider regarding prior labs, medical conditions, medications, and past medical history. Suspect prerenal due to hypotension on admission in setting of antihypertensive use. - continue to hold lisinopril, but have since restarted HCTZ - Creatinine is normal at 0.8, BUN is 32 lozano placed again for urinary retention on 10/04 in the evening (5) Diabetes: A1c was 6.5% this admission. glucose with some occasional hyperglycemia here due to steroids - continue Novolog SS Dexamethasone now discontinued monitor for hypoglycemia, no episodes -Holding home glipizide sugars are stable without the glipizide, would probably just discontinue on discharge spoke with his son in law Nelson, he agreed to stop the Glipizide (6) Diarrhea: Suspect secondary to COVID-19 as above. C. diff negative on 09/14. Now resolved no rectal bleeding in long time, has dome earlier this admission (7) Acute hypotension: Secondary to anti-hypertensives in the setting of diarrhea and dehydration. - Management as above for IZABELLA Blood pressures are now normal continue to hold lisinopril/HCTZ started low dose Lopressor 12.5mg BID for SVT (8) Hypertension: - As above, will only be on Lopressor on discharge Continue home aspirin as well (9) Hypercholesterolemia: - Continue ezetimibe and fenofibrate. Unclear why the patient is not on a statin. (10) Peripheral artery disease: Exact details of this unclear. Patient mentions possible stent. - Continue aspirin 81 mg p.o. daily, clopidogrel 75 mg p.o. daily, ezetimibe 10 mg p.o. daily (11) Hyperkalemia: resolved (12) DVT prophylaxis: Heparin SQ I certify that this patient is under my care and that I, or a physicians title assistant working with me, had a face to-face encounter that meets the home health [id number] encounter requirements with this patient. The encounter with the patient was in whole, or in part, for the following medi silvia condition, which is the primary reason for home health care (list medical condition): COVID-19 I certify that, based on my findings, the following services are medically necessary home health services: My clinical findings support the need for the above services because: Caregiver Instruct Med Mgmt, Safety, Disease Process, Signs to Report Home Safety Assessment Medication Compliance and Monitoring Effective of New Medications OT Assess ADL Status and Restore Function w ADLs PT Assessment for Endurance / Balance / Strength PT Gait and Balance Training, Strengthening and Safety Skilled Nsg Assessment Skilled Nsg Assess Pt Illness, Disease and Sx Monitoring S/S to Report to Provider Further, I certify that my clinical findings support that this patient is homebound (i.e. absences from home require considerable and taxing effort and are for medical reasons or confucianism services or infrequently or of short duration when for other reasons) because: Assistance of 1 Person for Ambulation/Activities Supportive Aid - Walker Transportation Assistance/Unable to Leave Home Unassisted Certification for Home Health Services: Based on the above findings, I certify that this patient is confined to the home and needs intermittent retirement care, physical therapy and/or speech therapy or continues to need occupational therapy. The patient is under my care, and I have initiated the establishment of the plan of care. This patient will be followed by a physician who will periodically review the plan of care. Total Time Total Time Spent Total Time Spent (In Minutes): 36 Total Time Includes: Examination of the Patient, Discharge Planning, Medication Reconciliation and Other (discussed plan with family) Discharge Plan Discharge Items Patient Disposition: Home - Home Health Services Reason For Visit: COVID-19,ACUTE KIDNEY INJURY Discharge Diagnosis: COVID 19 pneumonia Acute hypoxic respiratory failure Acute kidney injury Urinary retention Condition on Discharge: Fair Goals: improve strength, stay well nourished and well hydrated try to wean back on oxygen requirments follow up with urology about lozano catheter and urinary retention Activity: Per Instructions section Bathing: No limitations Exercise/Sports: Gradually increase as tolerated Driving/Machine Use: no driving Weightbearing: Full weightbearing Non-emergency contact: Primary Care Provider Call non-emergency contact if: you have any medication questions and your symptoms worsen Follow-up/Referrals: Victor Manuel Coronel MD [Physician] - (PLEASE CALL THE OFFICE AND HAVE THEM SCHEDULE YOU BETWEEN 7-10 days for lozano, voiding trial in office) Gopi Chavis [Primary Care Provider] - (PLEASE CALL THE OFFICE TO SCHEDULE AN APPOINTMENT WITHIN one week) Diet: Carb Consistent or DM2 Diet Texture: Pureed (blended smooth) Addtl Attending Provider Instructions: Medications: - FLOMAX: relaxes prostate, intended to help with urinary retention - METOPROLOL: 12.5mg twice a day, started here in hospital for supraventricular tachycardia episode, no episodes for two weeks, replaces lisinopril/HCTZ for blood pressure control - GLIPIZIDE: stop this medication, sugars have been stable off of it - LISINOPRIL/HCTZ: stop this blood pressure medication, replaced by metoprolol COVID 19 pneumonia, acute hypoxia completed prolonged course of dexamethasone (steroids) slowly weaning down oxygen requirements currently on 6L continuous, hopeful that you can be weaned further over the next days/weeks get a finger pulse oximeter, can use the lowest setting that keeps saturations > 88% there is a possibility that you will need oxygen at a lower level for a long time, maybe even the rest of your life, time will tell you are no longer contagious, do not need to quarantine, safe for family to be around you Urinary retention: lozano had to be placed continue with lozano, take Flomax follow up with [facility] urology in 7-10 days for voiding trial in the office Pending Studies at Discharge: No Stand-Alone Forms: [facility], Smoking Cessation Medications and DC Order Prescriptions: New tamsulosin 0.4 mg Capsule 0.4 mg PO HS 30 Days Qty: 30 RF: 0 metoprolol tartrate 25 mg Tablet 12.5 mg PO BID 30 Days Qty: 30 RF: 3 Continued Ocuvite Adult 50 Plus 250-5-1 mg capsule 1 cap PO DAILY RF: 0 fenofibrate nanocrystallized 145 mg tablet 145 mg PO DAILY RF: 0 clopidogrel 75 mg tablet 75 mg PO DAILY RF: 0 trazodone 100 mg tablet 100 mg PO DAILY RF: 0 ezetimibe 10 mg tablet 10 mg PO DAILY RF: 0 aspirin [Adult Low Dose Aspirin] 81 mg tablet,delayed release (DR/EC) 81 mg PO DAILY RF: 0 Discontinued lisinopril-hydrochlorothiazide 10-12.5 mg tablet 1 tab PO DAILY RF: 0 glipizide 5 mg tablet 2.5 mg PO BID RF: 0 Discharge Orders: Discharge Order (Routine); Ordered 10/07/20 Ordered By: Will Hearn/Other Patient Handouts: 5 Steps for Eating Healthier, ED Lozano Catheter, Care, A1C Admission Data Admit Date/Time: 09/13/20 16:48 Attending Provider: Will Gonzalez Admit Provider: Jonah Ramos Primary Care Provider: Gopi Chavis Other Providers: Luciano Moreira ; Jonah Ramos ; Nba Watson ; Victor Manuel Coronel Other Interventions: Discharge Summary Assessment (RN) Last Done: 10/07/20 14:16 Coding Level of Care Code D/C Day Management >30 mins Diagnoses COVID-19 U07.1 Acute respiratory failure with hypoxia J96.01 Paroxysmal SVT (supraventricular tachycardia) I47.1 Acute kidney failure N17.9 Acute renal failure type: unspecified Diabetes E11.9 Diarrhea A09 Diarrhea type: infectious Acute hypotension I95.9 Hypertension I10 Hypercholesterolemia E78.00 Peripheral artery disease I73.9 Hyperkalemia E87.5 DVT prophylaxis Z29.9
== END 2020-10-07 17:20 | disposition home health service (06) | DRG 871 ==
LOC: ED 12:21 → SUATTDRO 16:48 → 2S 16:48 → 2E 09-18 09:56